=== PATIENT | female | born 1995 | race Caucasian/White ===

== ENCOUNTER 2017-01-18 16:06 | Emergency (ER) | payer BC, OTHER ==
[~2017-01-18] VITALS: Ht 170.2 cm; Wt 55.2 kg
[~2017-01-18 16:06] MED LIST: AMPH30CA3 PO; AMPH5CAP PO; LEVO1IUD PV
[2017-01-18 16:08] VITALS: BP 131/92; TEMP 37; Ht 170.2 cm; Wt 55.2 kg
[2017-01-18] MEDS ORDERED: TRAZ50TA35 PO (16:28)
[2017-01-18] MEDS ORDERED: SERT50TA PO (16:28)
--- NOTE | 2017-01-18 16:39 | DIAGNOSTIC IMAGING REPORT ---
RIGHT FOOT 3 VIEWS CLINICAL HISTORY: Right foot pain. FINDINGS: 3 views of the right foot are compared to study dated 07/27/2015. The skeletal structures are well mineralized. No fracture is seen. The joint spaces of the foot are well-maintained. Mild spurring is noted along the medial tarsal bones. The overlying soft tissues are within normal limits. IMPRESSION: No acute bony abnormality is seen in the right foot. Electronically signed by: Clifton Laura M.D. 01/18/2017 4:37 PM Dictated Date/Time: 01/18/2017 4:36 PM
[2017-01-18 17:02] VITALS: PULSE 95; O2SAT 96
--- NOTE | 2017-01-18 17:46 | EMERGENCY ROOM VISIT NOTE ---
History First contact with patient: 16:13 Chief Complaint: FOOT PAIN Stated Complaint: RIGHT FOOT PAIN History of Present Illness The patient is a 21 year old female who presents to the Emergency Room with complaints of persistent right lateral foot pain. The patient reports that she injured her foot on Monday doing cross fit training. The patient has been using crutches to avoid limping, but still has notable discomfort, rated a 6 out of 10. She denies any pain extending into the ankle or leg. Denies paresthesias or numbness of the right foot or toes. She denies any prior history of right foot injuries. Review of Systems 10 system review was performed and was negative except for pertinent positives and negatives as indicated in history of present illness Past Medical/Surgical History Medical Problems: (1) Acute pancreatitis (2) ADHD (attention deficit hyperactivity disorder) (3) Anxiety (4) Brain bleed (5) ICH (intracerebral hemorrhage) (6) Pancreatitis (7) Ulcerative colitis Surgical Problems: (1) History of cholecystectomy (2) History of colonoscopy (3) History of wisdom tooth extraction Family History Cancer Diabetes mellitus Heart disease Hypertension Social History Smoking Status: Never Smoker Alcohol Use: none Drug Use: none Marital Status: single Housing Status: lives with roommate Occupation Status: [employer] student Current/Historical Medications Scheduled Amphetamine-Dextroamphetamine 30MG (Adderall Xr 30MG), 30 MG PO DAILY Amphetamine-Dextroamphetamine 5MG (Adderall Xr 5MG), 5 MG PO DAILY Levonorgestrel (Iud) (Juliana), 1 EA PV UD Sertraline (Zoloft), 50 MG PO DAILY Trazodone Hcl (Trazodone), 25 MG PO DAILY Allergies Coded Allergies: Sulfa Antibiotics (Verified Allergy, Intermediate, HIVES, 01/18/17) Cephalexin (Verified Allergy, Unknown, UNKNOWN, 01/18/17) Moxifloxacin (Unverified Allergy, Unknown, advere reaction, 01/18/17) Penicillins (Verified Allergy, Unknown, HIVES, 01/18/17) Morphine (Verified Adverse Reaction, Intermediate, INCREASED PAIN, 01/18/17 ) Physical Exam Vital Signs Date Time Temp Pulse Resp B/P Pulse Ox O2 Delivery O2 Flow Rate FiO2 01/18/17 17:02 95 16 96 01/18/17 16:08 37.0 95 18 131/92 94 Room Air Pain Rating (0-10): 2.0 Physical Exam CONSTITUTIONAL: Healthy and well nourished. Alert and oriented X 3 with positive affect. Patient does not appear in any acute distress. HEENT: Normocephalic, atraumatic. Pupils equal, round and reactive. NECK: Full active range of motion without discomfort. MUSCULOSKELETAL: Examination of the right foot shows minimal edema over the distal fifth and fourth metatarsal region. There is a mild area of ecchymosis over the same dorsal region. No discomfort with subtalar motion. No tenderness to palpation through the calcaneus or plantar fashion. No tenderness to palpation about the ankle. Pedal pulses are intact. INTEGUMENTARY: No rash or other significant dermatologic conditions noted. NEUROLOGIC: Right foot and toes are sensory intact. Medical Decision & Procedures ER Provider Diagnostic Interpretation: My interpretation of right foot x-rays does not show any acute fractures or dislocations. Radiologist report is as follows: RIGHT FOOT 3 VIEWS CLINICAL HISTORY: Right foot pain. FINDINGS: 3 views of the right foot are compared to study dated 07/27/2015. The skeletal structures are well mineralized. No fracture is seen. The joint spaces of the foot are well-maintained. Mild spurring is noted along the medial tarsal bones. The overlying soft tissues are within normal limits. IMPRESSION: No acute bony abnormality is seen in the right foot. ED Course Patient history and physical exam were performed. Nurse's notes were reviewed. The patient refused any analgesics while in the emergency department. X-rays of the right foot were normal. The patient was encouraged to continue using crutches, limited weightbearing to avoid limping. Ice and elevation for swelling. Tylenol as needed for additional pain relief. She was instructed to follow-up with orthopedics if symptoms are not improving within the next week. The patient was happy with plan of care, voiced understanding of all discharge instructions, and rated her pain a 2 out of 10 at the time of discharge. Impression Primary Impression: Right foot strain Departure Information Dispostion Home / Self-Care Condition FAIR Referrals Keven Dudley D.O. Forms HOME CARE DOCUMENTATION FORM, IMPORTANT VISIT INFORMATION Patient Instructions My [facility] [employer] Additional Instructions Suggest no workouts for the next 7 days. Intermittently apply ice to the foot. Minimal weight on foot, continuing to use crutches over the next 3-5 days. Ibuprofen or Tylenol as needed for pain. Follow-up with orthopedics (Dr. Dudley) if symptoms are not improving within the next week. Problem Qualifiers Primary Impression: Right foot strain Encounter type: initial encounter Qualified Codes: S96.911A - Strain of unspecified muscle and tendon at ankle and foot level, right foot, initial encounter
[2017-02-18] MEDS ORDERED: AMPH5CAP PO (09:51)
[2017-02-18] MEDS ORDERED: [UNRECOGNIZED DRUG - CODE] PO (09:51)
[2017-02-18] MEDS ORDERED: AMPH30CA3 PO (09:51)
== END 2017-01-18 17:03 | disposition home or self-care (01) ==
LOC: C.EDB 16:09 → C.EDD 17:03
DX: S96.911A Strain of unspecified muscle and tendon at ankle and foot level, right foot, initial encounter (principal); X58.XXXA Exposure to other specified factors, initial encounter; F90.9 Attention-deficit hyperactivity disorder, unspecified type; F41.9 Anxiety disorder, unspecified; K86.1 Other chronic pancreatitis; Z86.73 Personal history of transient ischemic attack (TIA), and cerebral infarction without residual deficits; Z87.19 Personal history of other diseases of the digestive system; Z90.49 Acquired absence of other specified parts of digestive tract; Z79.899 Other long term (current) drug therapy; Z88.0 Allergy status to penicillin; Z88.2 Allergy status to sulfonamides; Z88.8 Allergy status to other drugs, medicaments and biological substances; Z80.9 Family history of malignant neoplasm, unspecified; Z83.3 Family history of diabetes mellitus; Z82.49 Family history of ischemic heart disease and other diseases of the circulatory system

== ENCOUNTER 2017-02-13 22:49 | Inpatient (IN) | payer BC, OTHER ==
[~2017-02-13] VITALS: Ht 170.2 cm; Wt 55.7 kg
[~2017-02-13 22:49] MED LIST changes: +SERT50TA PO; +TRAZ50TA35 PO
[2017-02-13] MEDS ORDERED: HYDROmorphone INJ 0.5 MG/0.5 ML SYR IV STA (23:01)
[2017-02-13] MEDS ORDERED: ONDANSETRON INJ 2 MG/ML 2 ML VIAL IV STA (23:01)
[2017-02-13] MEDS ORDERED: SODIUM CHLORIDE 0.9% 1000ML 1,000 ML IV STA ×2 (23:01)
[2017-02-13 23:15] LABS: BASO % 0.4 %; BASO ABS # 0.03 K/uL (0-0.2); COMPLETE YES; EOS % 0.9 %; HEMATOCRIT 39.5 % (37-47); IG% 0.1 %; LYMPH % 24.7 %; LYMPH ABS # 1.73 K/uL (1.2-3.4); MEAN CORPUSCULAR HEMOGLOBIN 31.1 pg (25-34); MEAN CORPUSCULAR HGB CONC 34.9 g/dl (32-36); MEAN PLATELET VOLUME 9.3 fL (7.4-10.4); MONO % 9.4 %; NEUT % 64.5 %; PLATELET COUNT 252 K/uL (130-400); RED BLOOD COUNT 4.44 M/uL (4.2-5.4); WHITE BLOOD COUNT 6.99 K/uL (4.8-10.8)
[2017-02-13 23:50] LABS: BUN/CREATININE RATIO 21.5 (10-20); POTASSIUM 3.9 mmol/L (3.5-5.1)
[2017-02-13 23:51] LABS: PREG INTERNAL NEGATIVE QC NEG CLEAR BACKGROUND; PREG INTERNAL POSITIVE QC POS CONTROL LINE
[2017-02-14] MEDS ORDERED: HYDROmorphone INJ 0.5 MG/0.5 ML SYR IV STA ×2 (00:22→02:53)
[2017-02-14 01:51] LABS: URINE APPEARANCE CLEAR (CLEAR); URINE BILIRUBIN NEG (NEG); URINE COLOR YELLOW; URINE EPITHELIAL CELL AUTO >30 /lpf (0-5); URINE NITRITE NEG (NEG); URINE PH 6.5 (4.5-7.5); URINE SPECIFIC GRAVITY 1.025 (1.000-1.030); UROBILINOGEN NEG (NEG); ZZUR CULT IF INDIC CLEAN CATCH YES
[2017-02-14 01:54] LABS: MANUAL MICROSCOPIC REQUIRED? NO; REVIEW REQ? NO
--- NOTE | 2017-02-14 03:38 | EMERGENCY ROOM VISIT NOTE ---
History First contact with patient: 22:57 Chief Complaint: GI ASSESSMENT Stated Complaint: CHRONIC PANCREATITIS Nursing Triage Summary: c/p mid abdominal pain "feels like pancreatitis again" History of Present Illness The patient is a 21 year old female who presents to the Emergency Room with complaints of epigastric abdominal pain. The patient reports a significant past medical history of chronic pancreatitis. She reports that she's had a cholecystectomy as well as stents placed after ERCP last year. She has had waxing waning episodes of epigastric pain with elevation of her lipase levels. She reports that she has had epigastric pain throughout the day, but reports that her pain is worsened over the last half hour. She reports nausea. She reports that this is consistent with all prior episodes. She rates her current discomfort as a 6/10. Nothing makes it better or worse. The patient denies any headaches, dizziness, lightheadedness, chest pain, palpitations, short of breath, hematemesis, hematochezia, melena, hematuria, or dysuria. She reports that her last menstrual period was one month ago. She denies a vaginal discharge or drainage. She denies any chance for . Review of Systems See HPI for pertinent positives & negatives. A total of 10 systems reviewed and were otherwise negative. Past Medical/Surgical History Medical Problems: (1) Acute pancreatitis (2) ADHD (attention deficit hyperactivity disorder) (3) Anxiety (4) Brain bleed (5) ICH (intracerebral hemorrhage) (6) Pancreatitis (7) Ulcerative colitis Surgical Problems: (1) History of cholecystectomy (2) History of colonoscopy (3) History of wisdom tooth extraction Family History Cancer Diabetes mellitus Heart disease Hypertension Social History Smoking Status: Never Smoker Alcohol Use: none Drug Use: none Marital Status: single Housing Status: lives with roommate Occupation Status: [employer] student Current/Historical Medications Scheduled Amphetamine-Dextroamphetamine 30MG (Adderall Xr 30MG), 30 MG PO DAILY Amphetamine-Dextroamphetamine 5MG (Adderall Xr 5MG), 5 MG PO DAILY Levonorgestrel (Iud) (Juliana), 1 EA PV UD Sertraline (Zoloft), 25 MG PO DAILY Trazodone Hcl (Trazodone), 50 MG PO DAILY Allergies Coded Allergies: Sulfa Antibiotics (Verified Allergy, Intermediate, HIVES, 02/13/17) Cephalexin (Verified Allergy, Unknown, UNKNOWN, 02/13/17) Moxifloxacin (Unverified Allergy, Unknown, advere reaction, 02/13/17) Penicillins (Verified Allergy, Unknown, HIVES, 02/13/17) Morphine (Verified Adverse Reaction, Intermediate, INCREASED PAIN, 02/13/17 ) Physical Exam Vital Signs Date Time Temp Pulse Resp B/P Pulse Ox O2 Delivery O2 Flow Rate FiO2 02/14/17 03:05 66 16 131/78 98 Room Air 02/14/17 01:44 83 16 143/90 99 Room Air 02/14/17 00:21 68 16 132/80 99 Room Air 02/13/17 23:30 75 02/13/17 23:26 95 Room Air 02/13/17 22:53 36.7 81 20 132/88 98 Room Air Physical Exam VITALS: Vitals are noted on the nurse's note and reviewed by myself. Vital signs stable. GENERAL: Pleasant female in obvious pain, nondiaphoretic, well-developed well- nourished. SKIN: The skin was without rashes, erythema, edema, or bruising. There is no tenting of the skin. Capillary reflex less than 2 seconds. HEAD: Normocephalic atraumatic. EARS: External auditory canals clear, tympanic membranes pearly tyler without erythema or effusion bilaterally. EYES: Pupils equal round and reactive to light and accommodation. Conjunctivae without injection, sclerae without icterus. Extraocular movements intact. NOSE: Patent, turbinates without inflammation or discharge. MOUTH: Mucous membranes moist. Pharynx without erythema or exudate. Uvula midline. Airway patent. Tongue does not deviate. NECK: Supple without nuchal rigidity. No lymphadenopathy. No thyromegaly. Cervical spine is nontender. No JVD. HEART: Regular rate and rhythm without murmurs gallops or rubs. LUNGS: Clear to auscultation bilaterally without wheezes, rales or rhonchi. No dullness to percussion. No retractions or accessory muscle use. ABDOMEN: Positive bowel sounds x 4. Normal tympanic percussion. Soft, tender to palpation epigastric region, no CVA tenderness, without masses or organomegaly. [place] sign negative. No guarding or rebound tenderness. MUSCULOSKELETAL: No muscle atrophy, erythema, or edema noted. NEURO: Patient was alert and oriented to person place and time. Normal sensation to light and sharp touch. No focal neurological deficits. Medical Decision & Procedures Laboratory Results 02/13/17 23:02 Red Blood Count 4.44, Mean Corpuscular Volume 89.0, Mean Corpuscular Hemoglobin 31.1, Mean Corpuscular Hemoglobin Concent 34.9, Mean Platelet Volume 9.3, Neutrophils (%) (Auto) 64.5, Lymphocytes (%) (Auto) 24.7, Monocytes (%) (Auto) 9.4, Eosinophils (%) (Auto) 0.9, Basophils (%) (Auto) 0.4, Neutrophils # (Auto) 4.50, Lymphocytes # (Auto) 1.73, Monocytes # (Auto) 0.66, Eosinophils # (Auto) 0.06, Basophils # (Auto) 0.03 02/13/17 23:02 Test 02/13/17 23:02 02/14/17 01:35 White Blood Count 6.99 K/uL (4.8-10.8) Red Blood Count 4.44 M/uL (4.2-5.4) Hemoglobin 13.8 g/dL (12.0-16.0) Hematocrit 39.5 % (37-47) Mean Corpuscular Volume 89.0 fL (80-100) Mean Corpuscular Hemoglobin 31.1 pg (25-34) Mean Corpuscular Hemoglobin Concent 34.9 g/dl (32-36) Platelet Count 252 K/uL (130-400) Mean Platelet Volume 9.3 fL (7.4-10.4) Neutrophils (%) (Auto) 64.5 % Lymphocytes (%) (Auto) 24.7 % Monocytes (%) (Auto) 9.4 % Eosinophils (%) (Auto) 0.9 % Basophils (%) (Auto) 0.4 % Neutrophils # (Auto) 4.50 K/uL (1.4-6.5) Lymphocytes # (Auto) 1.73 K/uL (1.2-3.4) Monocytes # (Auto) 0.66 K/uL (0.11-0.59) Eosinophils # (Auto) 0.06 K/uL (0-0.5) Basophils # (Auto) 0.03 K/uL (0-0.2) RDW Standard Deviation 45.0 fL (36.4-46.3) RDW Coefficient of Variation 13.6 % (11.5-14.5) Immature Granulocyte % (Auto) 0.1 % Immature Granulocyte # (Auto) 0.01 K/uL (0.00-0.02) Anion Gap 7.0 mmol/L (3-11) Est Creatinine Clear Calc Drug Dose 76.9 ml/min Estimated GFR () 92.0 Estimated GFR (Non- 79.4 BUN/Creatinine Ratio 21.5 (10-20) Calcium Level 9.0 mg/dl (8.5-10.1) Total Bilirubin 1.1 mg/dl (0.2-1) Direct Bilirubin 0.2 mg/dl (0-0.2) Aspartate Amino Transf (AST/SGOT) 17 U/L (15-37) Alanine Aminotransferase (ALT/SGPT) 24 U/L (12-78) Alkaline Phosphatase 110 U/L (45-117) Total Protein 7.4 gm/dl (6.4-8.2) Albumin 4.3 gm/dl (3.4-5.0) Lipase 177 U/L (73-393) Human Chorionic Gonadotropin, Qual NEG (NEG) Urine Color YELLOW Urine Appearance CLEAR (CLEAR) Urine pH 6.5 (4.5-7.5) Urine Specific [place] 1.025 (1.000-1.030) Urine Protein NEG (NEG) Urine Glucose (UA) NEG (NEG) Urine Ketones NEG (NEG) Urine Occult Blood 1+ (NEG) Urine Nitrite NEG (NEG) Urine Bilirubin NEG (NEG) Urine Urobilinogen NEG (NEG) Urine Leukocyte Esterase NEG (NEG) Urine WBC (Auto) 1-5 /hpf (0-5) Urine RBC (Auto) 0-4 /hpf (0-4) Urine Hyaline Casts (Auto) 1-5 /lpf (0-5) Urine Epithelial Cells (Auto) >30 /lpf (0-5) Urine Bacteria (Auto) 1+ (NEG) Medications Administered Medications (Trade) Dose Ordered Sig/Ethan Route Start Time Stop Time Status Last Admin Dose Admin Hydromorphone HCl (Dilaudid Inj) 0.5 mg NOW STAT IV 02/13/17 23:01 02/13/17 23:04 DC 02/13/17 23:20 0.5 MG Ondansetron HCl 4 mg 4 mg NOW STAT IV 02/13/17 23:01 02/13/17 23:04 DC 02/13/17 23:20 4 MG Sodium Chloride 1,000 ml @ 999 mls/hr Q1H1M STAT IV 02/13/17 23:01 02/14/17 00:01 DC 02/13/17 23:19 999 MLS/HR Sodium Chloride (Nss 1000ml) 1,000 ml @ 125 mls/hr Q8H STAT IV 02/13/17 23:01 02/14/17 07:00 02/14/17 00:36 125 MLS/HR Hydromorphone HCl (Dilaudid Inj) 0.5 mg NOW STAT IV 02/14/17 00:22 02/14/17 00:23 DC 02/14/17 00:36 0.5 MG Hydromorphone HCl (Dilaudid Inj) 0.5 mg NOW STAT IV 02/14/17 02:53 02/14/17 02:54 DC 02/14/17 03:04 0.5 MG ED Course Prior records/ancillary studies reviewed. Triage Nursing notes reviewed. Additional history obtained from family. The patient's history was concerning for abdominal pain. Differential diagnosis: Etiologies such as appendicitis, diverticulitis, PUD, biliary pathology, UTI, pancreatitis, obstruction, mesenteric ischemia, aortic pathology, infections, inflammatory bowel disease, renal colic, as well as others were entertained. Physical examination findings: As above. ER treatment provided: IV fluids, Dilaudid, Zofran On reassessment the patient felt better. Diagnostics interpreted by me: The labs revealed no worrisome leukocytosis or electrolyte abnormality Imaging studies: Ultrasound was reviewed from stat radiology Consultation: A consultation was placed with the hospitalist, Dr. Bianchi. The case was discussed and diagnostics were reviewed. The patient was evaluated in the ER for further treatment. Exam and history seem consistent with chronic pancreatitis. Patient was still in severe amount of pain. She received multiple pain medications. She will be evaluated by medicine for possible admission. She had normal lipase. No acute findings on ultrasound. She has a history of chronic pancreatitis and symptoms are similar. By the evaluation outlined above emergent etiologies such as appendicitis, diverticulitis, PUD, biliary pathology, UTI, obstruction, mesenteric ischemia, aortic pathology, infections, inflammatory bowel disease, renal colic, as well as others were deemed relatively unlikely. The pt informed about the findings as listed above. All questions were answered and pleased with the treatment. case reviewed with my Attending. Medical Decision As above Impression Primary Impression: Chronic pancreatitis Departure Information Dispostion Being Evaluated By Hospitalist Condition FAIR Referrals MARIANNE HOFFMANN M.D. (PCP) Patient Instructions My [facility] Problem Qualifiers Primary Impression: Chronic pancreatitis Pancreatitis type: unspecified pancreatitis type Qualified Codes: K86.1 - Other chronic pancreatitis
[2017-02-14] MEDS ORDERED: ALUMINUM/MAGNESIUM/SIMETH (MAALOX MAX) 30 ML UDC PO PRN (03:45)
[2017-02-14] MEDS ORDERED: ACETAMINOPHEN 325 MG TAB PO PRN (03:45)
[2017-02-14] MEDS ORDERED: POLYETHYLENE (MIRALAX) 17 GM PACK PO PRN (04:00)
[2017-02-14 04:30] VITALS: BP 131/87; PULSE 65; TEMP 36.6; Ht 170.2 cm; Wt 55.7 kg
[2017-02-14] MEDS: ONDANSETRON INJ 2 MG/ML 2 ML VIAL IV PRN ×4 (04:50→18:53)
--- NOTE | 2017-02-14 05:10 | History and Physical ---
History & Physical Date & Time of Service: Feb 14, 2017 at 05:02 Chief Complaint: Chronic Pancreatitis, Intractable Abdominal Pain Primary Care Physician: Chelo Catherine M.D. History of Present Illness Source: patient 21-year-old female with past medical history of chronic pancreatitis status post cholecystectomy, stenting after ERCP presented to the ER with abdominal pain which started this morning. She complained of mid abdominal pain radiating to the back , about 6 on 10, associated with nausea. She denies any episodes of vomiting but has had diarrhea almost every day for about a month. Denies any fevers or chills or any recent viral illnesses. She follows with specialist at [facility] and has not had acute attacks since last summer. She was tested extensively for any structural changes, cystic fibrosis etc. She had earlier used Creon but had stopped it as it caused constipation. She tries to eat a low-fat diet. She has no history of diabetes. Denies any alcohol intake, smoking, illicit drugs. Denies any dysuria, hematuria, urinary frequency, BRBPR, melena. Past Medical/Surgical History Medical Problems: (1) Acute pancreatitis Status: Resolved (2) ADHD (attention deficit hyperactivity disorder) Status: Chronic (3) Anxiety Status: Chronic (4) Brain bleed Status: Chronic (5) ICH (intracerebral hemorrhage) Status: Resolved (6) Pancreatitis Status: Chronic (7) Ulcerative colitis Status: Chronic Surgical Problems: (1) History of cholecystectomy Status: Resolved (2) History of colonoscopy Status: Resolved (3) History of wisdom tooth extraction Status: Resolved Family History Cancer Diabetes mellitus Heart disease Hypertension Social History Smoking Status: Never Smoker Drug Use: none Marital Status: single Occupational Status: [employer] student Immunizations History of Influenza Vaccine: No History of Tetanus Vaccine?: Unknown History of Pneumococcal: No History of Hepatitis B Vaccine: Unknown Allergies Coded Allergies: Sulfa Antibiotics (Verified Allergy, Intermediate, HIVES, 02/13/17) Cephalexin (Verified Allergy, Unknown, UNKNOWN, 02/13/17) Moxifloxacin (Unverified Allergy, Unknown, advere reaction, 02/13/17) Penicillins (Verified Allergy, Unknown, HIVES, 02/13/17) Morphine (Verified Adverse Reaction, Intermediate, INCREASED PAIN, 02/13/17 ) Home Medications Scheduled Amphetamine-Dextroamphetamine 30MG (Adderall Xr 30MG), 30 MG PO DAILY Amphetamine-Dextroamphetamine 5MG (Adderall Xr 5MG), 5 MG PO DAILY Levonorgestrel (Iud) (Juliana), 1 EA PV UD Sertraline (Zoloft), 25 MG PO DAILY Trazodone Hcl (Trazodone), 50 MG PO DAILY Review of Systems Constitutional: No chills, No fever Eyes: No worsening of vision ENT: No hearing loss Respiratory: No cough, No sputum Cardiovascular: No chest pain Abdomen: + diarrhea, + nausea, + pain Musculoskeletal: No joint pain Genitourinary - Female: No dysuria, No urinary frequency, No urinary urgency Neurologic: No memory loss Psychiatric: No depression symptoms Endocrine: No fatigue Hematologic / Lymphatic: No abnormal bleeding/bruising Integumentary: No rash Physical Exam Vital Signs Date Time Temp Pulse Resp B/P Pulse Ox O2 Delivery O2 Flow Rate FiO2 02/14/17 04:16 77 16 116/55 96 Room Air 02/14/17 03:05 66 16 131/78 98 Room Air 02/14/17 01:44 83 16 143/90 99 Room Air 02/14/17 00:21 68 16 132/80 99 Room Air 02/13/17 23:30 75 02/13/17 23:26 95 Room Air 02/13/17 22:53 36.7 81 20 132/88 98 Room Air General Appearance: WD/WN, no apparent distress Head: normocephalic Eyes: normal inspection ENT: normal ENT inspection, hearing grossly normal Neck: supple Respiratory/Chest: chest non-tender, lungs clear, normal breath sounds, no respiratory distress, no accessory muscle use Cardiovascular: regular rate, rhythm, no edema Abdomen/GI: normal bowel sounds, non tender, soft Extremities/Musculoskelatal: no pedal edema Neurologic/Psych: alert, normal mood/affect, oriented x 3 Skin: normal color Diagnostics Laboratory Results Results Past 24 Hours Test 02/13/17 23:02 02/14/17 01:35 02/14/17 04:48 Range/Units White Blood Count 6.99 4.8-10.8 K/uL Red Blood Count 4.44 4.2-5.4 M/uL Hemoglobin 13.8 12.0-16.0 g/dL Hematocrit 39.5 37-47 % Mean Corpuscular Volume 89.0 80-100 fL Mean Corpuscular Hemoglobin 31.1 25-34 pg Mean Corpuscular Hemoglobin Concent 34.9 32-36 g/dl Platelet Count 252 130-400 K/uL Mean Platelet Volume 9.3 7.4-10.4 fL Neutrophils (%) (Auto) 64.5 % Lymphocytes (%) (Auto) 24.7 % Monocytes (%) (Auto) 9.4 % Eosinophils (%) (Auto) 0.9 % Basophils (%) (Auto) 0.4 % Neutrophils # (Auto) 4.50 1.4-6.5 K/uL Lymphocytes # (Auto) 1.73 1.2-3.4 K/uL Monocytes # (Auto) 0.66 0.11-0.59 K/uL Eosinophils # (Auto) 0.06 0-0.5 K/uL Basophils # (Auto) 0.03 0-0.2 K/uL RDW Standard Deviation 45.0 36.4-46.3 fL RDW Coefficient of Variation 13.6 11.5-14.5 % Immature Granulocyte % (Auto) 0.1 % Immature Granulocyte # (Auto) 0.01 0.00-0.02 K/uL Sodium Level 141 136-145 mmol/L Potassium Level 3.9 3.5-5.1 mmol/L Chloride Level 106 98-107 mmol/L Carbon Dioxide Level 28 21-32 mmol/L Anion Gap 7.0 3-11 mmol/L Blood Urea Nitrogen 22 7-18 mg/dl Creatinine 1.00 0.60-1.20 mg/dl Est Creatinine Clear Calc Drug Dose 76.9 ml/min Estimated GFR () 92.0 Estimated GFR (Non- 79.4 BUN/Creatinine Ratio 21.5 10-20 Random Glucose 128 70-99 mg/dl Calcium Level 9.0 8.5-10.1 mg/dl Total Bilirubin 1.1 0.2-1 mg/dl Direct Bilirubin 0.2 0-0.2 mg/dl Aspartate Amino Transf (AST/SGOT) 17 15-37 U/L Alanine Aminotransferase (ALT/SGPT) 24 12-78 U/L Alkaline Phosphatase 110 45-117 U/L Total Protein 7.4 6.4-8.2 gm/dl Albumin 4.3 3.4-5.0 gm/dl Lipase 177 73-393 U/L Human Chorionic Gonadotropin, Qual NEG NEG Urine Color YELLOW Urine Appearance CLEAR CLEAR Urine pH 6.5 4.5-7.5 Urine Specific [place] 1.025 1.000-1.030 Urine Protein NEG NEG Urine Glucose (UA) NEG NEG Urine Ketones NEG NEG Urine Occult Blood 1+ NEG Urine Nitrite NEG NEG Urine Bilirubin NEG NEG Urine Urobilinogen NEG NEG Urine Leukocyte Esterase NEG NEG Urine WBC (Auto) 1-5 0-5 /hpf Urine RBC (Auto) 0-4 0-4 /hpf Urine Hyaline Casts (Auto) 1-5 0-5 /lpf Urine Epithelial Cells (Auto) >30 0-5 /lpf Urine Bacteria (Auto) 1+ NEG Microbiology Results 02/14/17 Urine Culture, Received Pending Impression Assessment and Plan 21-year-old female with past medical history of chronic pancreatitis here with epigastric pain that started this morning. She follows with GI in [facility]. Chronic pancreatitis: Lipase on presentation 177 - Abdominal ultrasound done - Monitor lipase levels - Continue IV fluids - Pain control with Dilaudid 0.5 mg IV every 3 hours as needed - GI consult - Bowel rest Chronic diarrhea: - Likely secondary to chronic pancreatitis Pancreatic exocrine insufficiency - Patient had stopped using Creon/pancrease supplement as it had caused constipation - We will restart Creon in low doses - Check vitamin D levels - Check B12 levels which could be affected by malabsorption - Nutrition consult Pancreatic endocrine insufficiency : Random blood sugar today was 128 Check hemoglobin A1c Full code DVT prophylaxis: SCDs Disposition: Admitted to Med/Surg Level of Care Med/Surg Resuscitation Status FULL RESUSCITATION VTE Prophylaxis VTE Risk Assessment Done? Y/N: Yes Risk Level: Moderate Given or contraindicated: SCD's Resident Tracking Resident Involvement: Resident Care Provided Care Provided: Adult Hospital Medicine Assessment and Plan Attending Addendum: I have physically seen and examined this patient, have directed their medical care, have supervised the medical residents activities, and agree with the H&P as noted above, with the following changes: NONE
[2017-02-14] MEDS: HYDROmorphone INJ 0.5 MG/0.5 ML SYR IV PRN ×6 (05:37→22:08)
--- NOTE | 2017-02-14 07:07 | DIAGNOSTIC IMAGING REPORT ---
ULTRASOUND RIGHT UPPER QUADRANT ABDOMEN CLINICAL HISTORY: Epigastric abdominal pain. COMPARISON STUDY: Abdominal ultrasound dated 09/05/2016. TECHNIQUE: Real-time, grayscale, and color flow sonography of the right upper quadrant of the abdomen was performed. Images are reviewed in the transverse and longitudinal planes. FINDINGS: Liver: The liver is normal in size and echotexture. There is no intrahepatic biliary ductal dilatation. The main portal vein is patent. Gallbladder: The gallbladder is surgically absent. The common bile duct measures up to 0.5 cm in diameter. Pancreas: Visualized portions of the pancreatic head and body are normal in appearance. Splenic vein is patent. Right kidney: Survey images of the right kidney demonstrate normal size and echotexture. There is no hydronephrosis. Ascites: None. IMPRESSION: No acute sonographic abnormality is identified in the right upper quadrant noting status post cholecystectomy. Electronically signed by: Clifton Laura M.D. 02/14/2017 7:04 AM Dictated Date/Time: 02/14/2017 7:04 AM
[2017-02-14] MEDS: NSS + 20MEQ KCL 1000ML 1,000 ML IV SCH ×2 (07:08→15:01)
[2017-02-14 07:38] VITALS: BP 108/69; PULSE 54; TEMP 36.5; O2SAT 98
[2017-02-14 07:56] LABS: ESTIMATED AVERAGE GLUCOSE 103 mg/dl; HA1C FLAG Normal (Normal)
[2017-02-14] MEDS: PANCREAZE (LIPASE 4,200U) CAP PO SCH ×3 (08:00→21:00)
[2017-02-14] MEDS ORDERED: TRAZODONE HCL 50 MG TAB PO SCH (09:00)
[2017-02-14] MEDS ORDERED: SERTRALINE HCL 50 MG TAB PO SCH (09:00)
[2017-02-14] MEDS: AMPHETAMINE-DEXTROAMPHETAMINE 30 MG CAP PO SCH ×2 (09:30→12:06)
[2017-02-14] MEDS: ADDERALL 30 MG SCH (09:30)
--- NOTE | 2017-02-14 15:10 | Progress Note ---
Progress Note Date of Service Feb 14, 2017. (Agnieszka Astorga, PAShirazC) Progress Note Patient seen and examined. Minimal improvement in pain. Moderate improvement in nausea. TTP in epigastric region Acute on chronic pancreatitis -Change IV fluids to LR at 150 cc/hr -Increase Creon to 1 tab 3 TID -Await GI Recs DVT prophylaxis -Teds, SCDs CODE STATUS -LEVEL I FULL CODE (Agnieszka Astorga, AGUILA) Attending Attestation: Pt seen/examined, chart reviewed, care plan d/w NEGRO Astorga. I agree w/ the tafoya components of her documentation. Pt with ongoing nausea and epigastric "burning pain." Extensive w/u for her recurrent/chronic pancreatitis by [facility] w/o specific etiology. s/p stenting of pancreatic duct and sphincterotomy (by her account) in the last 1-2 years. Denies etoh. Unsure about her lipids. VSS no fever gen - NAD skin - pallor heart - RRR lungs - CTA b/l abd - minimal distension, BS+, tender epigastric area, no HSM A/P: 1. chronic pancreatitis 2. steatorrhea by history vs infectious diarrhea 3. agree with creon once eating again 4. agree with c. diff toxin as ordered by GI 5. agree with triglyceride check in AM 6. copious LR fluids Deonna JENKINS MD (Chi Jenkins MD)
[2017-02-14 15:30] VITALS: BP 128/85; PULSE 66; TEMP 36.6; O2SAT 100
[2017-02-14] MEDS: LACTATED RINGER'S 1000ML 1,000 ML IV SCH ×2 (17:30→20:42)
--- NOTE | 2017-02-14 18:20 | Gastroenterology Progress Note ---
Progress Note Date of Service: Feb 14, 2017 Subjective Pt evaluation today including: conversation w/ patient, physical exam, chart review (no notes in [place] EMR, Gi consult DR Andrew 2014 inpt for pancreatitis. ), lab review, review of studies, review of inpatient medication list Medications Current Inpatient Medications Medications (Trade) Dose Ordered Sig/Ethan Route Start Time Stop Time Status Last Admin Dose Admin Acetaminophen (Tylenol Tab) 650 mg Q4H PRN PO 02/14/17 03:45 03/16/17 03:44 Al Hydrox/Mg Hydrox/Simethicone (Maalox Max Susp) 15 ml Q4H PRN PO 02/14/17 03:45 03/16/17 03:44 Polyethylene (Miralax Powder Packet) 17 gm DAILY PRN PO 02/14/17 04:00 03/16/17 03:59 Ondansetron HCl (Zofran Inj) 4 mg Q6H PRN IV 02/14/17 03:45 03/16/17 03:44 02/14/17 15:27 4 MG Hydromorphone HCl (Dilaudid Inj) 0.5 mg Q3H PRN IV 02/14/17 05:00 02/28/17 04:59 02/14/17 15:28 0.5 MG Miscellaneous Information (Order Awaiting Action) 1 ea QS N/A 02/14/17 08:00 03/16/17 07:59 Non-Formulary Medication (Patient'S Own Controlled Med) 1 ea DAILY N/A 02/14/17 09:30 02/28/17 09:29 Sertraline HCl (Zoloft Tab) 25 mg HS PO 02/14/17 21:00 03/16/17 08:59 Trazodone HCl (Desyrel Tab) 50 mg HS PO 02/14/17 21:00 03/16/17 08:59 Amylase/Lipase/ Protease 1 cap 1 cap TID PO 02/14/17 21:00 03/16/17 20:59 Lactated Ringer's (Lr 1000ml) 1,000 ml @ 150 mls/hr Q6H40M IV 02/14/17 15:15 03/16/17 15:14 02/14/17 17:30 150 MLS/HR Objective Vital Signs Date Time Temp Pulse Resp B/P Pulse Ox O2 Delivery O2 Flow Rate FiO2 02/14/17 15:30 36.6 66 18 128/85 100 Room Air 02/14/17 07:38 36.5 54 16 108/69 98 Room Air 02/14/17 07:30 Room Air 02/14/17 04:30 Room Air 02/14/17 04:30 36.6 65 18 131/87 Room Air 02/14/17 04:16 77 16 116/55 96 Room Air 02/14/17 03:05 66 16 131/78 98 Room Air 02/14/17 01:44 83 16 143/90 99 Room Air 02/14/17 00:21 68 16 132/80 99 Room Air 02/13/17 23:30 75 02/13/17 23:26 95 Room Air 02/13/17 22:53 36.7 81 20 132/88 98 Room Air Laboratory Results Last 24 Hours Test 02/13/17 23:02 02/14/17 01:35 02/14/17 06:09 White Blood Count 6.99 K/uL Red Blood Count 4.44 M/uL Hemoglobin 13.8 g/dL Hematocrit 39.5 % Mean Corpuscular Volume 89.0 fL Mean Corpuscular Hemoglobin 31.1 pg Mean Corpuscular Hemoglobin Concent 34.9 g/dl Platelet Count 252 K/uL Mean Platelet Volume 9.3 fL Neutrophils (%) (Auto) 64.5 % Lymphocytes (%) (Auto) 24.7 % Monocytes (%) (Auto) 9.4 % Eosinophils (%) (Auto) 0.9 % Basophils (%) (Auto) 0.4 % Neutrophils # (Auto) 4.50 K/uL Lymphocytes # (Auto) 1.73 K/uL Monocytes # (Auto) 0.66 K/uL Eosinophils # (Auto) 0.06 K/uL Basophils # (Auto) 0.03 K/uL RDW Standard Deviation 45.0 fL RDW Coefficient of Variation 13.6 % Immature Granulocyte % (Auto) 0.1 % Immature Granulocyte # (Auto) 0.01 K/uL Sodium Level 141 mmol/L Potassium Level 3.9 mmol/L Chloride Level 106 mmol/L Carbon Dioxide Level 28 mmol/L Anion Gap 7.0 mmol/L Blood Urea Nitrogen 22 mg/dl Creatinine 1.00 mg/dl Est Creatinine Clear Calc Drug Dose 76.9 ml/min Estimated GFR () 92.0 Estimated GFR (Non- 79.4 BUN/Creatinine Ratio 21.5 Random Glucose 128 mg/dl Calcium Level 9.0 mg/dl Total Bilirubin 1.1 mg/dl Direct Bilirubin 0.2 mg/dl Aspartate Amino Transf (AST/SGOT) 17 U/L Alanine Aminotransferase (ALT/SGPT) 24 U/L Alkaline Phosphatase 110 U/L Total Protein 7.4 gm/dl Albumin 4.3 gm/dl Lipase 177 U/L 157 U/L Human Chorionic Gonadotropin, Qual NEG Urine Color YELLOW Urine Appearance CLEAR Urine pH 6.5 Urine Specific Clifford 1.025 Urine Protein NEG Urine Glucose (UA) NEG Urine Ketones NEG Urine Occult Blood 1+ Urine Nitrite NEG Urine Bilirubin NEG Urine Urobilinogen NEG Urine Leukocyte Esterase NEG Urine WBC (Auto) 1-5 /hpf Urine RBC (Auto) 0-4 /hpf Urine Hyaline Casts (Auto) 1-5 /lpf Urine Epithelial Cells (Auto) >30 /lpf Urine Bacteria (Auto) 1+ Estimated Average Glucose 103 mg/dl Hemoglobin A1c 5.2 % Assessment and Plan Gi consult dictated job: [id number] epigastric pain---could be pancreatitis despite negative u/s and lipase given how many acute attacks patient has had and feels like typical episode per patient. Pt only with 2 urine voids since admit so bolus with LR and then 300 ml /hour to make sure adequate hydration to avoid necrotizing pancreatiist. Goal is 1/2 ml/kg/hour urine output. So ordered strict I /O also. Spoke with nurse about bolus and IV rate and strict I/O nausea and vomiting--likely related to process causing epi pain recurrent pancreattisi etiology unclear with ERCP with stents, s/p airam, testing for autoimmune and cystic fibrosis negative per patient. No ETOH per patient. She is not sure about triglyceride testing so will order that. Diarrhea--history of Cdiff so check stool for Cdiff, pancreas exocrine insufficiency in the differential also. Check CBC, CMP, lipase now and in am also.
[2017-02-14] MEDS ORDERED: LACTATED RINGER'S 1000ML 1,000 ML IV ONE (18:30)
[2017-02-14 18:35] LABS: BASO % 0.2 %; BASO ABS # 0.01 K/uL (0-0.2); HEMATOCRIT 36.4 % (37-47); LYMPH ABS # 1.64 K/uL (1.2-3.4); MEAN CORPUSCULAR HEMOGLOBIN 30.8 pg (25-34); MONO % 10.7 %; NEUT % 47.1 %; PLATELET COUNT 202 K/uL (130-400); RED BLOOD COUNT 4.09 M/uL (4.2-5.4)
[2017-02-14 18:46] LABS: COMPLETE YES; MEAN CORPUSCULAR HGB CONC 34.6 g/dl (32-36)
[2017-02-14 18:58] LABS: ALB/GLOB RATIO 1.3 (0.9-2); CREATININE 0.81 mg/dl (0.60-1.20); POTASSIUM 3.8 mmol/L (3.5-5.1)
[2017-02-14] MEDS ORDERED: NURSING VERBAL MED ORDER ONE (19:00)
[2017-02-14] MEDS ORDERED: ONDANSETRON INJ 2 MG/ML 2 ML VIAL IV ONE (19:45)
[2017-02-14] MEDS: TRAZODONE HCL 50 MG TAB PO SCH (21:00)
[2017-02-14] MEDS: SERTRALINE HCL 50 MG TAB PO SCH (22:06)
--- NOTE | 2017-02-14 22:20 | GASTROINTESTINAL CONSULTATION ---
DATE OF CONSULTATION: 02/14/2017 REASON FOR CONSULTATION: Chronic pancreatitis. CHIEF COMPLAINT: The patient has abdominal pain. HISTORY OF PRESENT ILLNESS: The patient states if this is pancreatitis, this time this is her 10th episode of pancreatitis. She has had extensive workup, sounds like at [facility]. She states she has had ERCP with stenting. She has had gallbladder removed. She has had testing for cystic fibrosis, testing for autoimmune pancreatitis. She is not a drinker of alcohol. She states that she is not aware whether she has been tested for high triglycerides or not. She states she had the ERCP with stenting about the summer of 2015 and this is the longest she has gone before having any problems, but she comes in now with about 5-6/10 epigastric pain, change in her bowels too with diarrhea over the last month. She does have a history of C. diff colitis per her report. No dysphagia. No significant change in her weight. No fever. Does have associated nausea and vomiting. No GERD. No liver problems. The patient apparently intermittently was given some p.o. liquids and had some worsening of her discomfort after that, about 6/10 at the current time. She states she has urinated twice since admission. PAST MEDICAL HISTORY: ALLERGIES: SULFA, PENICILLIN, MORPHINE, MOXIFLOXACIN. MEDICATIONS ON ADMISSION: Adderall, Skylo, Zoloft, trazodone. PROBLEMS AND SURGERIES: Status post cholecystectomy. She had intracranial bleed. She had C. diff colitis and apparently had some ulceration in the colon most secondary to that at one point. FAMILY HISTORY: Some type of cancer, diabetes. SOCIAL HISTORY: Ethanol negative. REVIEW OF SYSTEMS: Ten review of systems are reviewed and negative. PHYSICAL EXAMINATION: GENERAL: Female, appears her stated age, in no acute distress. VITAL SIGNS: Most recent vital signs in the chart, temp 36.6, pulse 66, respirations 18, BP 128/85, O2 saturation 100% on room air. EYES: Conjunctivae and lids normal. ENT: Oropharynx clear. NECK: Without obvious mass or thyroid enlargement. RESPIRATORY: Normal effort. Clear to auscultation. CARDIOVASCULAR: Regular rate and rhythm. EXTREMITIES: Without edema. ABDOMEN: Positive bowel sounds. Soft. Moderate subjective epigastric pain, but no guarding, no rebound. No obvious organomegaly or masses appreciated. RECTAL: Not done. LYMPH: No obvious neck or groin nodes. MUSCULOSKELETAL: Digits and nails normal. SKIN: Without obvious rash or induration. NEUROLOGIC: Cranial nerves intact. Sensation intact. PSYCHIATRIC: Recent and remote memory good. Insight and judgment good. DATA: CMP on admission, BUN 22, glucose 128, total bilirubin 1.1, lipase of 177 and repeat 157, she says it normally runs about 8-10. She states she has had EGDs and colonoscopy in the past which were unremarkable except for ulceration with C. diff at one point. Right upper quadrant ultrasound negative except status post cholecystectomy. IMPRESSION AND PLAN: 1. Epigastric pain. This could be pancreatitis despite a negative ultrasound and lipase given how many acute attacks the patient has had. She also thinks this is a typical episode from before. The patient only had 2 urine voids, there is no output recorded, so I am going to bolus her with a liter of LR and then 300 mL an hour to make sure she has adequate hydration to avoid necrotizing pancreatitis. The goal is 0.5 mL/hour or more urine output. I have ordered strict I and O. 2. Nausea and vomiting, likely related to the process causing epigastric pain. 3. Recurrent pancreatitis, etiology unclear, with workup including ERCP with stents, cholecystectomy, testing for autoimmune, cystic fibrosis. No ethanol per the patient. She is not sure about triglyceride testing so check lipid panel tomorrow. 4. Diarrhea, history of Clostridium difficile. Check stool for Clostridium difficile. Pancreas exocrine insufficiency in the differential also. MTDD
[2017-02-14 23:27] VITALS: BP 124/79; PULSE 67; TEMP 36.7; O2SAT 98
[2017-02-15] MEDS: LACTATED RINGER'S 1000ML 1,000 ML IV SCH ×5 (00:14→17:09)
[2017-02-15] MEDS: ONDANSETRON INJ 2 MG/ML 2 ML VIAL IV PRN (01:05)
[2017-02-15] MEDS: HYDROmorphone INJ 0.5 MG/0.5 ML SYR IV PRN ×7 (01:06→22:28)
[2017-02-15 07:00] VITALS: BP 107/67; PULSE 70; TEMP 36.6; O2SAT 98
[2017-02-15 07:14] LABS: BASO % 0.5 %; BASO ABS # 0.02 K/uL (0-0.2); COMPLETE YES; EOS % 2.7 %; HEMATOCRIT 36.7 % (37-47); LYMPH % 40.7 %; LYMPH ABS # 1.48 K/uL (1.2-3.4); MEAN CELL VOLUME 88.9 fL (80-100); MEAN CORPUSCULAR HEMOGLOBIN 30.5 pg (25-34); MEAN CORPUSCULAR HGB CONC 34.3 g/dl (32-36); MEAN PLATELET VOLUME 9.1 fL (7.4-10.4); MONO % 11.8 %; NEUT % 44.3 %; PLATELET COUNT 195 K/uL (130-400); RED BLOOD COUNT 4.13 M/uL (4.2-5.4); WHITE BLOOD COUNT 3.64 K/uL (4.8-10.8)
[2017-02-15 07:31] LABS: BUN/CREATININE RATIO 6.2 (10-20); CREATININE 0.83 mg/dl (0.60-1.20)
[2017-02-15 07:32] LABS: CALCIUM 8.5 mg/dl (8.5-10.1); MAGNESIUM 1.7 mg/dl (1.8-2.4); POTASSIUM 3.8 mmol/L (3.5-5.1)
[2017-02-15 07:35] LABS: ALB/GLOB RATIO 1.2 (0.9-2); CHOLESTEROL/HDL RATIO 2.8
--- NOTE | 2017-02-15 08:59 | Gastroenterology Progress Note ---
Progress Note Subjective Pt evaluation today including: conversation w/ patient, physical exam, chart review, lab review, review of studies, review of inpatient medication list CC f/u abdominal pain HPI Pt states her abd pain is better at 4/10. No stools. I/O for 12 hours as of 0800 recorded as 1300 in and 800 out but was on 300 ml an hour so should have been at leat 3600 in. Nurse for this shift was not given any report of malfunctioning IV and has no further information to resolve the discrepancy. Pt states urinating very frequently and large amounts. Review of Systems Respiratory: No shortness of breath Cardiac: No chest pain Medications Current Inpatient Medications Medications (Trade) Dose Ordered Sig/Ethan Route Start Time Stop Time Status Last Admin Dose Admin Acetaminophen (Tylenol Tab) 650 mg Q4H PRN PO 02/14/17 03:45 03/16/17 03:44 Al Hydrox/Mg Hydrox/Simethicone (Maalox Max Susp) 15 ml Q4H PRN PO 02/14/17 03:45 03/16/17 03:44 Polyethylene (Miralax Powder Packet) 17 gm DAILY PRN PO 02/14/17 04:00 03/16/17 03:59 Ondansetron HCl (Zofran Inj) 4 mg Q6H PRN IV 02/14/17 03:45 03/16/17 03:44 02/15/17 01:05 4 MG Hydromorphone HCl (Dilaudid Inj) 0.5 mg Q3H PRN IV 02/14/17 05:00 02/28/17 04:59 02/15/17 07:57 0.5 MG Miscellaneous Information (Order Awaiting Action) 1 ea QS N/A 02/14/17 08:00 03/16/17 07:59 Non-Formulary Medication (Patient'S Own Controlled Med) 1 ea DAILY N/A 02/14/17 09:30 02/28/17 09:29 Sertraline HCl (Zoloft Tab) 25 mg HS PO 02/14/17 21:00 03/16/17 08:59 02/14/17 22:06 25 MG Trazodone HCl (Desyrel Tab) 50 mg HS PO 02/14/17 21:00 03/16/17 08:59 Amylase/Lipase/ Protease 1 cap 1 cap TID PO 02/14/17 21:00 03/16/17 20:59 Lactated Ringer's (Lr 1000ml) 1,000 ml @ 300 mls/hr Q3H20M IV 02/14/17 15:15 03/16/17 15:14 02/15/17 05:44 300 MLS/HR Objective Vital Signs Date Time Temp Pulse Resp B/P Pulse Ox O2 Delivery O2 Flow Rate FiO2 02/15/17 07:00 36.6 70 19 107/67 98 Room Air 02/15/17 00:15 Room Air 02/14/17 23:27 36.7 67 19 124/79 98 Room Air 02/14/17 15:30 36.6 66 18 128/85 100 Room Air 02/14/17 15:15 Room Air Physical Exam General Appearance: WD/WN, no apparent distress Respiratory/Chest: lungs clear, no respiratory distress Cardiovascular: regular rate, rhythm, no edema Abdomen: normal bowel sounds, soft, no organomegaly, + pertinent finding ( subjecitive epi pain, NO guarding nor rebound) Neurologic/Psych: normal mood/affect, oriented x 3 Skin: normal color Laboratory Results Last 24 Hours Test 02/14/17 18:27 02/15/17 06:50 White Blood Count 4.10 K/uL 3.64 K/uL Red Blood Count 4.09 M/uL 4.13 M/uL Hemoglobin 12.6 g/dL 12.6 g/dL Hematocrit 36.4 % 36.7 % Mean Corpuscular Volume 89.0 fL 88.9 fL Mean Corpuscular Hemoglobin 30.8 pg 30.5 pg Mean Corpuscular Hemoglobin Concent 34.6 g/dl 34.3 g/dl Platelet Count 202 K/uL 195 K/uL Mean Platelet Volume 9.0 fL 9.1 fL Neutrophils (%) (Auto) 47.1 % 44.3 % Lymphocytes (%) (Auto) 40.0 % 40.7 % Monocytes (%) (Auto) 10.7 % 11.8 % Eosinophils (%) (Auto) 2.0 % 2.7 % Basophils (%) (Auto) 0.2 % 0.5 % Neutrophils # (Auto) 1.93 K/uL 1.61 K/uL Lymphocytes # (Auto) 1.64 K/uL 1.48 K/uL Monocytes # (Auto) 0.44 K/uL 0.43 K/uL Eosinophils # (Auto) 0.08 K/uL 0.10 K/uL Basophils # (Auto) 0.01 K/uL 0.02 K/uL RDW Standard Deviation 44.2 fL 43.5 fL RDW Coefficient of Variation 13.4 % 13.3 % Immature Granulocyte % (Auto) 0.0 % 0.0 % Immature Granulocyte # (Auto) 0.00 K/uL 0.00 K/uL Sodium Level 141 mmol/L 142 mmol/L Potassium Level 3.8 mmol/L 3.8 mmol/L Chloride Level 108 mmol/L 108 mmol/L Carbon Dioxide Level 26 mmol/L 28 mmol/L Anion Gap 7.0 mmol/L 6.0 mmol/L Blood Urea Nitrogen 7 mg/dl 5 mg/dl Creatinine 0.81 mg/dl 0.83 mg/dl Est Creatinine Clear Calc Drug Dose 95.0 ml/min 92.7 ml/min Estimated GFR () 118.6 115.2 Estimated GFR (Non- 102.4 99.4 BUN/Creatinine Ratio 9.0 6.2 Random Glucose 106 mg/dl 87 mg/dl Calcium Level 8.0 mg/dl 8.5 mg/dl Total Bilirubin 1.3 mg/dl 1.7 mg/dl Aspartate Amino Transf (AST/SGOT) 16 U/L 15 U/L Alanine Aminotransferase (ALT/SGPT) 19 U/L 18 U/L Alkaline Phosphatase 90 U/L 90 U/L Total Protein 6.1 gm/dl 6.1 gm/dl Albumin 3.4 gm/dl 3.3 gm/dl Globulin 2.7 gm/dl 2.8 gm/dl Albumin/Globulin Ratio 1.3 1.2 Lipase 125 U/L 107 U/L Magnesium Level 1.7 mg/dl Triglycerides Level 42 mg/dl Cholesterol Level 125 mg/dl HDL Cholesterol 45 mg/dl LDL Cholesterol, Calculated 72 mg/dl VLDL Cholesterol, Calculated 8 mg/dl Cholesterol/HDL Ratio 2.8 Assessment and Plan epigastric pain---could be pancreatitis despite negative u/s and lipase given how many acute attacks patient has had and feels like typical episode per patient. I and O not accurate but patient seems to be voiding good deal and frequently so cut back IVF to 125 an hour and spoke with nurse about strict recording of I/O this shift. Pt is asking about clear liquids. When MRCP done and is continuing to do ok could try clears later in the day. elevated TB--new 1.7--per patient this is higher than she has been told it ever was in past and typically does not elevate with fasting. Check MRCP to look for sludge/stone in CBD nausea and vomiting--improved recurrent pancreattisi etiology unclear with ERCP with stents, s/p airam, testing for autoimmune and cystic fibrosis negative per patient. No ETOH per patient. Triglycerides 42 today so normal. Diarrhea--history of Cdiff so check stool for Cdiff, pancreas exocrine insufficiency in the differential also. No stools fasting so Cdiff is less likely.
[2017-02-15] MEDS: ADDERALL 30 MG SCH (09:00)
[2017-02-15] MEDS: PANCREAZE (LIPASE 4,200U) CAP PO SCH ×4 (09:00→21:00)
[2017-02-15] MEDS: AMPHETAMINE-DEXTROAMPHETAMINE 30 MG CAP PO SCH (09:24)
--- NOTE | 2017-02-15 14:00 | Hospitalist Progress Note ---
Hospitalist Progress Note Date of Service Feb 15, 2017. Subjective Pt evaluation today including: conversation w/ patient Patient states abdominal pain is better however admits to / tension headache. States pain medication provides minimal relief Constitutional: No fever Eyes: No worsening of vision ENT: No hearing loss Respiratory: No cough, No shortness of breath Cardiovascular: No chest pain Abdomen: + nausea, + pain, No constipation, No diarrhea, No vomiting Musculoskeletal: No joint pain Female : No dysuria Neurologic: No memory loss Psychiatric: No depression symptoms Medications Current Inpatient Medications Medications (Trade) Dose Ordered Sig/Ethan Route Start Time Stop Time Status Last Admin Dose Admin Acetaminophen (Tylenol Tab) 650 mg Q4H PRN PO 02/14/17 03:45 03/16/17 03:44 Al Hydrox/Mg Hydrox/Simethicone (Maalox Max Susp) 15 ml Q4H PRN PO 02/14/17 03:45 03/16/17 03:44 Polyethylene (Miralax Powder Packet) 17 gm DAILY PRN PO 02/14/17 04:00 03/16/17 03:59 Ondansetron HCl (Zofran Inj) 4 mg Q6H PRN IV 02/14/17 03:45 03/16/17 03:44 02/15/17 01:05 4 MG Hydromorphone HCl (Dilaudid Inj) 0.5 mg Q3H PRN IV 02/14/17 05:00 02/28/17 04:59 02/15/17 12:04 0.5 MG Miscellaneous Information (Order Awaiting Action) 1 ea QS N/A 02/14/17 08:00 03/16/17 07:59 Non-Formulary Medication (Patient'S Own Controlled Med) 1 ea DAILY N/A 02/14/17 09:30 02/28/17 09:29 Sertraline HCl (Zoloft Tab) 25 mg HS PO 02/14/17 21:00 03/16/17 08:59 02/14/17 22:06 25 MG Trazodone HCl (Desyrel Tab) 50 mg HS PO 02/14/17 21:00 03/16/17 08:59 Amylase/Lipase/ Protease 1 cap 1 cap TID PO 02/14/17 21:00 03/16/17 20:59 Lactated Ringer's (Lr 1000ml) 1,000 ml @ 125 mls/hr Q8H IV 02/14/17 15:15 02/15/17 09:23 125 MLS/HR Objective Vital Signs Date Time Temp Pulse Resp B/P Pulse Ox O2 Delivery O2 Flow Rate FiO2 02/15/17 08:00 Room Air 02/15/17 07:00 36.6 70 19 107/67 98 Room Air 02/15/17 00:15 Room Air 02/14/17 23:27 36.7 67 19 124/79 98 Room Air 02/14/17 15:30 36.6 66 18 128/85 100 Room Air 02/14/17 15:15 Room Air Physical Exam General Appearance: WD/WN, no apparent distress Eyes: normal inspection ENT: normal ENT inspection Neck: no adenopathy Respiratory/Chest: chest non-tender, lungs clear Cardiovascular: regular rate, rhythm Abdomen: normal bowel sounds, non tender, soft Extremities: normal range of motion, non-tender Neurologic/Psychiatric: cook helper II-XII nml as tested, no motor/sensory deficits, alert, oriented x 3 Skin: normal color, warm/dry Lymphatic: no adenopathy Laboratory Results Last 24 Hours Test 02/14/17 18:27 02/15/17 06:50 White Blood Count 4.10 K/uL 3.64 K/uL Red Blood Count 4.09 M/uL 4.13 M/uL Hemoglobin 12.6 g/dL 12.6 g/dL Hematocrit 36.4 % 36.7 % Mean Corpuscular Volume 89.0 fL 88.9 fL Mean Corpuscular Hemoglobin 30.8 pg 30.5 pg Mean Corpuscular Hemoglobin Concent 34.6 g/dl 34.3 g/dl Platelet Count 202 K/uL 195 K/uL Mean Platelet Volume 9.0 fL 9.1 fL Neutrophils (%) (Auto) 47.1 % 44.3 % Lymphocytes (%) (Auto) 40.0 % 40.7 % Monocytes (%) (Auto) 10.7 % 11.8 % Eosinophils (%) (Auto) 2.0 % 2.7 % Basophils (%) (Auto) 0.2 % 0.5 % Neutrophils # (Auto) 1.93 K/uL 1.61 K/uL Lymphocytes # (Auto) 1.64 K/uL 1.48 K/uL Monocytes # (Auto) 0.44 K/uL 0.43 K/uL Eosinophils # (Auto) 0.08 K/uL 0.10 K/uL Basophils # (Auto) 0.01 K/uL 0.02 K/uL RDW Standard Deviation 44.2 fL 43.5 fL RDW Coefficient of Variation 13.4 % 13.3 % Immature Granulocyte % (Auto) 0.0 % 0.0 % Immature Granulocyte # (Auto) 0.00 K/uL 0.00 K/uL Sodium Level 141 mmol/L 142 mmol/L Potassium Level 3.8 mmol/L 3.8 mmol/L Chloride Level 108 mmol/L 108 mmol/L Carbon Dioxide Level 26 mmol/L 28 mmol/L Anion Gap 7.0 mmol/L 6.0 mmol/L Blood Urea Nitrogen 7 mg/dl 5 mg/dl Creatinine 0.81 mg/dl 0.83 mg/dl Est Creatinine Clear Calc Drug Dose 95.0 ml/min 92.7 ml/min Estimated GFR () 118.6 115.2 Estimated GFR (Non- 102.4 99.4 BUN/Creatinine Ratio 9.0 6.2 Random Glucose 106 mg/dl 87 mg/dl Calcium Level 8.0 mg/dl 8.5 mg/dl Total Bilirubin 1.3 mg/dl 1.7 mg/dl Aspartate Amino Transf (AST/SGOT) 16 U/L 15 U/L Alanine Aminotransferase (ALT/SGPT) 19 U/L 18 U/L Alkaline Phosphatase 90 U/L 90 U/L Total Protein 6.1 gm/dl 6.1 gm/dl Albumin 3.4 gm/dl 3.3 gm/dl Globulin 2.7 gm/dl 2.8 gm/dl Albumin/Globulin Ratio 1.3 1.2 Lipase 125 U/L 107 U/L Magnesium Level 1.7 mg/dl Triglycerides Level 42 mg/dl Cholesterol Level 125 mg/dl HDL Cholesterol 45 mg/dl LDL Cholesterol, Calculated 72 mg/dl VLDL Cholesterol, Calculated 8 mg/dl Cholesterol/HDL Ratio 2.8 Assessment and Plan 21-year-old female with past medical history of chronic pancreatitis presented with progressively worsening abdominal pain Chronic pancreatitis: - appreciate GI input - MRCP scheduled for today - clear liquid diet - antiemetics Tension Headache - start tordol Chronic diarrhea: - Likely secondary to chronic pancreatitis - check c diff Pancreatic exocrine insufficiency - continue creon - vitamin D level pending - CM aware to set up as outpatient Full code DVT prophylaxis: SCDs
[2017-02-15] MEDS ORDERED: MAGNESIUM OXIDE 400 MG TAB PO ONE (14:30)
[2017-02-15 15:05] VITALS: BP 121/80; PULSE 70; TEMP 36.9; O2SAT 98
[2017-02-15] MEDS: KETOROLAC TROMETHAMINE 15 MG/ML VIAL IV PRN ×2 (15:23→22:28)
[2017-02-15 19:41] VITALS: BP 128/78; PULSE 66; TEMP 36.7; O2SAT 99
--- NOTE | 2017-02-15 19:42 | DIAGNOSTIC IMAGING REPORT ---
MRCP CLINICAL HISTORY: recurrent pancreatitis, s/p airam, r/o sludge/stone pain. Nausea. Pancreatitis. TECHNIQUE: Multiaxial MRI acquisition COMPARISON STUDY: 08/21/2013 FINDINGS: Prior cholecystectomy. Normal appearance to the pancreatic and biliary ductal systems. No significant filling defects. Liver is uniform throughout. Pancreas is unremarkable. There is no peripancreatic infiltrative change. Spleen is uniform. Kidneys are uniform in appearance. Bowel pattern is nonobstructive. Abdominal aorta is normal in course and caliber. IMPRESSION: 1. Negative MRCP. 2. Prior cholecystectomy. 3. Otherwise negative MRI of the abdomen Electronically signed by: Hugh Fuentes M.D. 02/15/2017 5:37 PM Dictated Date/Time: 02/15/2017 5:34 PM
[2017-02-15] MEDS: TRAZODONE HCL 50 MG TAB PO SCH (21:00)
[2017-02-15] MEDS: SERTRALINE HCL 50 MG TAB PO SCH (22:24)
[2017-02-15 23:15] VITALS: BP 133/85; PULSE 58; TEMP 36.6; O2SAT 99
[2017-02-16] MEDS ORDERED: NURSING VERBAL MED ORDER ONE (00:30)
[2017-02-16] MEDS ORDERED: ACETAMINOPHEN 500 MG TAB PO ONE (00:45)
[2017-02-16] MEDS: LACTATED RINGER'S 1000ML 1,000 ML IV SCH ×2 (01:24→09:27)
[2017-02-16] MEDS: HYDROmorphone INJ 0.5 MG/0.5 ML SYR IV PRN ×5 (01:27→20:42)
[2017-02-16 03:26] VITALS: BP 104/66; PULSE 65; TEMP 36.6; O2SAT 98
[2017-02-16] MEDS: KETOROLAC TROMETHAMINE 15 MG/ML VIAL IV PRN (05:49)
[2017-02-16 06:46] LABS: BASO % 0.3 %; BASO ABS # 0.01 K/uL (0-0.2); COMPLETE YES; EOS % 2.7 %; HEMATOCRIT 37.3 % (37-47); LYMPH % 40.5 %; LYMPH ABS # 1.51 K/uL (1.2-3.4); MEAN CELL VOLUME 86.3 fL (80-100); MEAN CORPUSCULAR HEMOGLOBIN 30.1 pg (25-34); MEAN CORPUSCULAR HGB CONC 34.9 g/dl (32-36); MEAN PLATELET VOLUME 9.1 fL (7.4-10.4); MONO % 13.7 %; NEUT % 42.8 %; PLATELET COUNT 225 K/uL (130-400); RED BLOOD COUNT 4.32 M/uL (4.2-5.4); WHITE BLOOD COUNT 3.73 K/uL (4.8-10.8)
[2017-02-16 07:45] VITALS: BP 121/80; PULSE 70; TEMP 36.9; O2SAT 98
[2017-02-16 08:22] LABS: BUN/CREATININE RATIO 11.3 (10-20); CREATININE 0.77 mg/dl (0.60-1.20); POTASSIUM 3.6 mmol/L (3.5-5.1)
[2017-02-16 08:25] LABS: ALB/GLOB RATIO 1.2 (0.9-2)
[2017-02-16] MEDS: ADDERALL 30 MG SCH (08:39)
--- NOTE | 2017-02-16 08:52 | Gastroenterology Progress Note ---
Progress Note Date of Service: Feb 16, 2017 Subjective Pt evaluation today including: conversation w/ patient, physical exam, chart review, lab review, review of studies, review of inpatient medication list CC f/u abd pain HPI Pt states abd pain improved. Feels like she could try clear liquids. NO stools this admit. Review of Systems Respiratory: No shortness of breath Cardiac: No chest pain Medications Current Inpatient Medications Medications (Trade) Dose Ordered Sig/Ethan Route Start Time Stop Time Status Last Admin Dose Admin Acetaminophen (Tylenol Tab) 650 mg Q4H PRN PO 02/14/17 03:45 03/16/17 03:44 02/15/17 20:10 650 MG Al Hydrox/Mg Hydrox/Simethicone (Maalox Max Susp) 15 ml Q4H PRN PO 02/14/17 03:45 03/16/17 03:44 Polyethylene (Miralax Powder Packet) 17 gm DAILY PRN PO 02/14/17 04:00 03/16/17 03:59 Ondansetron HCl (Zofran Inj) 4 mg Q6H PRN IV 02/14/17 03:45 03/16/17 03:44 02/15/17 01:05 4 MG Hydromorphone HCl (Dilaudid Inj) 0.5 mg Q3H PRN IV 02/14/17 05:00 02/28/17 04:59 02/16/17 01:27 0.5 MG Miscellaneous Information (Order Awaiting Action) 1 ea QS N/A 02/14/17 08:00 03/16/17 07:59 Non-Formulary Medication (Patient'S Own Controlled Med) 1 ea DAILY N/A 02/14/17 09:30 02/28/17 09:29 Sertraline HCl (Zoloft Tab) 25 mg HS PO 02/14/17 21:00 03/16/17 08:59 02/15/17 22:24 25 MG Trazodone HCl (Desyrel Tab) 50 mg HS PO 02/14/17 21:00 03/16/17 08:59 Amylase/Lipase/ Protease 1 cap 1 cap TID PO 02/14/17 21:00 03/16/17 20:59 Lactated Ringer's (Lr 1000ml) 1,000 ml @ 125 mls/hr Q8H IV 02/14/17 15:15 4/13/17 01:24 125 MLS/HR Ketorolac Tromethamine (Toradol Inj) 15 mg Q6H PRN IV 02/15/17 14:00 02/20/17 13:59 02/16/17 05:49 15 MG Objective Vital Signs Date Time Temp Pulse Resp B/P Pulse Ox O2 Delivery O2 Flow Rate FiO2 02/16/17 08:10 Room Air 02/16/17 07:45 36.9 70 16 121/80 98 Room Air 02/16/17 03:26 36.6 65 14 104/66 98 Room Air 02/16/17 00:05 Room Air 02/15/17 23:15 36.6 58 14 133/85 99 Room Air 02/15/17 19:41 36.7 66 18 128/78 99 Room Air 02/15/17 15:20 Room Air 02/15/17 15:05 36.9 70 16 121/80 98 Room Air Physical Exam General Appearance: WD/WN, no apparent distress Respiratory/Chest: lungs clear, no respiratory distress Cardiovascular: regular rate, rhythm Abdomen: normal bowel sounds, non tender, soft, no organomegaly Laboratory Results Last 24 Hours Test 02/16/17 06:10 White Blood Count 3.73 K/uL Red Blood Count 4.32 M/uL Hemoglobin 13.0 g/dL Hematocrit 37.3 % Mean Corpuscular Volume 86.3 fL Mean Corpuscular Hemoglobin 30.1 pg Mean Corpuscular Hemoglobin Concent 34.9 g/dl Platelet Count 225 K/uL Mean Platelet Volume 9.1 fL Neutrophils (%) (Auto) 42.8 % Lymphocytes (%) (Auto) 40.5 % Monocytes (%) (Auto) 13.7 % Eosinophils (%) (Auto) 2.7 % Basophils (%) (Auto) 0.3 % Neutrophils # (Auto) 1.60 K/uL Lymphocytes # (Auto) 1.51 K/uL Monocytes # (Auto) 0.51 K/uL Eosinophils # (Auto) 0.10 K/uL Basophils # (Auto) 0.01 K/uL RDW Standard Deviation 41.4 fL RDW Coefficient of Variation 12.9 % Immature Granulocyte % (Auto) 0.0 % Immature Granulocyte # (Auto) 0.00 K/uL Sodium Level 139 mmol/L Potassium Level 3.6 mmol/L Chloride Level 104 mmol/L Carbon Dioxide Level 28 mmol/L Anion Gap 7.0 mmol/L Blood Urea Nitrogen 9 mg/dl Creatinine 0.77 mg/dl Est Creatinine Clear Calc Drug Dose 99.9 ml/min Estimated GFR () 126.1 Estimated GFR (Non- 108.8 BUN/Creatinine Ratio 11.3 Random Glucose 89 mg/dl Total Bilirubin 1.6 mg/dl Aspartate Amino Transf (AST/SGOT) 16 U/L Alanine Aminotransferase (ALT/SGPT) 20 U/L Alkaline Phosphatase 100 U/L Total Protein 6.2 gm/dl Albumin 3.4 gm/dl Globulin 2.8 gm/dl Albumin/Globulin Ratio 1.2 Lipase 81 U/L Assessment and Plan epigastric pain---could be pancreatitis despite negative u/s and lipase given how many acute attacks patient has had and feels like typical episode per patient. Improved. Trial of clear liquids elevated TB--1.6, better. MRCP negative. Perhaps patient has [place] syndrome nausea and vomiting--improved recurrent pancreattisi etiology unclear with ERCP with stents, s/p airam, testing for autoimmune and cystic fibrosis negative per patient. No ETOH per patient. Triglycerides 42 so normal. Diarrhea--history of Cdiff so check stool for Cdiff, pancreas exocrine insufficiency in the differential also. No stools fasting so Cdiff is less likely.
[2017-02-16] MEDS: AMPHETAMINE-DEXTROAMPHETAMINE 30 MG CAP PO SCH (09:26)
[2017-02-16] MEDS: PANCREAZE (LIPASE 4,200U) CAP PO SCH ×3 (09:27→20:44)
[2017-02-16] MEDS: ONDANSETRON INJ 2 MG/ML 2 ML VIAL IV PRN ×2 (09:54→15:53)
[2017-02-16 15:30] VITALS: BP 127/84; PULSE 78; TEMP 36.7; O2SAT 97
--- NOTE | 2017-02-16 16:00 | Hospitalist Progress Note ---
Hospitalist Progress Note Date of Service Feb 16, 2017. Subjective Pt evaluation today including: conversation w/ patient Patient had no acute issues overnight She ate clears this am for breakfast and states she is mildly nasueas however denies any abdominal pain Constitutional: No fever, No see HPI Eyes: No worsening of vision ENT: No hearing loss Respiratory: No cough, No shortness of breath Cardiovascular: No chest pain, No edema Abdomen: + nausea, No diarrhea, No pain, No vomiting Musculoskeletal: No joint pain Objective Vital Signs Date Time Temp Pulse Resp B/P Pulse Ox O2 Delivery O2 Flow Rate FiO2 02/16/17 08:10 Room Air 02/16/17 07:45 36.9 70 16 121/80 98 Room Air 02/16/17 03:26 36.6 65 14 104/66 98 Room Air 02/16/17 00:05 Room Air 02/15/17 23:15 36.6 58 14 133/85 99 Room Air 02/15/17 19:41 36.7 66 18 128/78 99 Room Air 02/15/17 15:20 Room Air 02/15/17 15:05 36.9 70 16 121/80 98 Room Air Physical Exam General Appearance: WD/WN, no apparent distress Eyes: normal inspection ENT: normal ENT inspection Neck: supple Respiratory/Chest: chest non-tender, lungs clear Cardiovascular: regular rate, rhythm, no edema Abdomen: non tender, soft, + abnormal bowel sounds (hypoactive) Extremities: normal range of motion, non-tender Neurologic/Psychiatric: physical chemist II-XII nml as tested, no motor/sensory deficits, alert, oriented x 3 Skin: normal color, warm/dry, no rash Lymphatic: no adenopathy Laboratory Results Last 24 Hours Test 02/16/17 06:10 White Blood Count 3.73 K/uL Red Blood Count 4.32 M/uL Hemoglobin 13.0 g/dL Hematocrit 37.3 % Mean Corpuscular Volume 86.3 fL Mean Corpuscular Hemoglobin 30.1 pg Mean Corpuscular Hemoglobin Concent 34.9 g/dl Platelet Count 225 K/uL Mean Platelet Volume 9.1 fL Neutrophils (%) (Auto) 42.8 % Lymphocytes (%) (Auto) 40.5 % Monocytes (%) (Auto) 13.7 % Eosinophils (%) (Auto) 2.7 % Basophils (%) (Auto) 0.3 % Neutrophils # (Auto) 1.60 K/uL Lymphocytes # (Auto) 1.51 K/uL Monocytes # (Auto) 0.51 K/uL Eosinophils # (Auto) 0.10 K/uL Basophils # (Auto) 0.01 K/uL RDW Standard Deviation 41.4 fL RDW Coefficient of Variation 12.9 % Immature Granulocyte % (Auto) 0.0 % Immature Granulocyte # (Auto) 0.00 K/uL Sodium Level 139 mmol/L Potassium Level 3.6 mmol/L Chloride Level 104 mmol/L Carbon Dioxide Level 28 mmol/L Anion Gap 7.0 mmol/L Blood Urea Nitrogen 9 mg/dl Creatinine 0.77 mg/dl Est Creatinine Clear Calc Drug Dose 99.9 ml/min Estimated GFR () 126.1 Estimated GFR (Non- 108.8 BUN/Creatinine Ratio 11.3 Random Glucose 89 mg/dl Calcium Level 9.0 mg/dl Total Bilirubin 1.6 mg/dl Aspartate Amino Transf (AST/SGOT) 16 U/L Alanine Aminotransferase (ALT/SGPT) 20 U/L Alkaline Phosphatase 100 U/L Total Protein 6.2 gm/dl Albumin 3.4 gm/dl Globulin 2.8 gm/dl Albumin/Globulin Ratio 1.2 Lipase 81 U/L Assessment and Plan 21-year-old female with past medical history of chronic pancreatitis presented with progressively worsening abdominal pain Chronic pancreatitis: - appreciate GI input - MRCPnegative - trial clear liquid diet /advacne diet as tolerated - antiemetics Tension Headache - continue tordol Chronic diarrhea: - Likely secondary to chronic pancreatitis - c diff pending Pancreatic exocrine insufficiency - continue creon/CM aware to ensure insurance will cover - vitamin D level pending Full code DVT prophylaxis: SCDs
[2017-02-16] MEDS: SERTRALINE HCL 50 MG TAB PO SCH (20:42)
[2017-02-16] MEDS: TRAZODONE HCL 50 MG TAB PO SCH (20:46)
[2017-02-16 23:00] VITALS: BP 115/79; PULSE 70; TEMP 36.7; O2SAT 100
[2017-02-17] MEDS: HYDROmorphone INJ 0.5 MG/0.5 ML SYR IV PRN ×3 (00:14→13:52)
[2017-02-17 07:00] LABS: BASO % 0.5 %; BASO ABS # 0.02 K/uL (0-0.2); COMPLETE YES; EOS % 2.5 %; HEMATOCRIT 39.8 % (37-47); LYMPH % 35.3 %; LYMPH ABS # 1.44 K/uL (1.2-3.4); MEAN CELL VOLUME 86.9 fL (80-100); MEAN CORPUSCULAR HEMOGLOBIN 30.1 pg (25-34); MEAN CORPUSCULAR HGB CONC 34.7 g/dl (32-36); MONO % 12.3 %; NEUT % 49.4 %; PLATELET COUNT 245 K/uL (130-400); RED BLOOD COUNT 4.58 M/uL (4.2-5.4); WHITE BLOOD COUNT 4.08 K/uL (4.8-10.8)
[2017-02-17 07:04] VITALS: BP 109/74; PULSE 70; TEMP 36.6; O2SAT 96
[2017-02-17 07:40] LABS: ALB/GLOB RATIO 1.1 (0.9-2); BUN/CREATININE RATIO 9.5 (10-20); CALCIUM 8.4 mg/dl (8.5-10.1); CREATININE 0.78 mg/dl (0.60-1.20); POTASSIUM 3.6 mmol/L (3.5-5.1)
[2017-02-17] MEDS: AMPHETAMINE-DEXTROAMPHETAMINE 30 MG CAP PO SCH (09:30)
[2017-02-17] MEDS: ONDANSETRON INJ 2 MG/ML 2 ML VIAL IV PRN ×2 (09:30→16:41)
[2017-02-17] MEDS: ADDERALL 30 MG SCH (09:31)
[2017-02-17] MEDS: PANCREAZE (LIPASE 4,200U) CAP PO SCH ×3 (09:31→21:04)
--- NOTE | 2017-02-17 11:43 | PROGRESS NOTE ---
DATE: 02/17/2017 SUBJECTIVE: The patient states that she had clear liquids for breakfast today as well as yesterday and still having some abdominal pain, rated about 5/10, which is about where it was when she came in the hospital. She states that she really has not eaten any solid food for at least 3 days and thinks that the abdominal pain may be just the fact she has not eaten. Her lab tests continue to remain normal, vital signs are normal. OBJECTIVE: On exam, she has laparoscopic cholecystectomy scars. Bowel sounds are hypoactive. There is some tenderness in the epigastric area to deep palpation but no masses or rebound. IMPRESSION AND PLAN: The patient has recurrent pancreatitis of unclear etiology. Her labs are improving. The patient has been advanced to solid food for lunch today and I told her that if it makes her pain worse then to back down to liquids again, until she feels like she is able to tolerate more solid food. Will continue to follow the patient during her hospital stay.
[2017-02-17 14:56] VITALS: BP 123/81; PULSE 76; TEMP 36.7; O2SAT 97
--- NOTE | 2017-02-17 16:30 | Hospitalist Progress Note ---
Hospitalist Progress Note Date of Service Feb 17, 2017. Subjective Pt evaluation today including: conversation w/ patient Patient had no acute issues Patient had no chest pain, SOB Patient admits to nausea however wants to advance diet Constitutional: No fever Eyes: No worsening of vision ENT: No hearing loss Respiratory: No cough, No shortness of breath Cardiovascular: No chest pain Abdomen: + nausea, + pain Musculoskeletal: No joint pain Female : No dysuria Neurologic: No memory loss Psychiatric: No depression symptoms Endo: No fatigue Skin: No rash Objective Vital Signs Date Time Temp Pulse Resp B/P Pulse Ox O2 Delivery O2 Flow Rate FiO2 02/17/17 14:56 36.7 76 16 123/81 97 Room Air 02/17/17 08:00 Room Air 02/17/17 07:04 36.6 70 16 109/74 96 Room Air 02/16/17 23:00 36.7 70 18 115/79 100 Room Air 02/16/17 20:30 Room Air Physical Exam General Appearance: WD/WN, no apparent distress Eyes: normal inspection ENT: normal ENT inspection Neck: supple, no adenopathy Respiratory/Chest: chest non-tender, lungs clear Cardiovascular: regular rate, rhythm, no edema Abdomen: normal bowel sounds, non tender, soft Extremities: normal range of motion, non-tender 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, no motor/sensory deficits, alert, oriented x 3 Skin: normal color, warm/dry, no rash Lymphatic: no adenopathy Laboratory Results Last 24 Hours Test 02/17/17 06:30 White Blood Count 4.08 K/uL Red Blood Count 4.58 M/uL Hemoglobin 13.8 g/dL Hematocrit 39.8 % Mean Corpuscular Volume 86.9 fL Mean Corpuscular Hemoglobin 30.1 pg Mean Corpuscular Hemoglobin Concent 34.7 g/dl Platelet Count 245 K/uL Mean Platelet Volume 9.0 fL Neutrophils (%) (Auto) 49.4 % Lymphocytes (%) (Auto) 35.3 % Monocytes (%) (Auto) 12.3 % Eosinophils (%) (Auto) 2.5 % Basophils (%) (Auto) 0.5 % Neutrophils # (Auto) 2.02 K/uL Lymphocytes # (Auto) 1.44 K/uL Monocytes # (Auto) 0.50 K/uL Eosinophils # (Auto) 0.10 K/uL Basophils # (Auto) 0.02 K/uL RDW Standard Deviation 42.3 fL RDW Coefficient of Variation 13.3 % Immature Granulocyte % (Auto) 0.0 % Immature Granulocyte # (Auto) 0.00 K/uL Sodium Level 140 mmol/L Potassium Level 3.6 mmol/L Chloride Level 104 mmol/L Carbon Dioxide Level 29 mmol/L Anion Gap 7.0 mmol/L Blood Urea Nitrogen 7 mg/dl Creatinine 0.78 mg/dl Est Creatinine Clear Calc Drug Dose 98.6 ml/min Estimated GFR () 124.2 Estimated GFR (Non- 107.2 BUN/Creatinine Ratio 9.5 Random Glucose 92 mg/dl Calcium Level 8.4 mg/dl Total Bilirubin 1.1 mg/dl Aspartate Amino Transf (AST/SGOT) 13 U/L Alanine Aminotransferase (ALT/SGPT) 20 U/L Alkaline Phosphatase 100 U/L Total Protein 6.8 gm/dl Albumin 3.6 gm/dl Globulin 3.2 gm/dl Albumin/Globulin Ratio 1.1 Lipase 130 U/L Assessment and Plan 21-year-old female with past medical history of chronic pancreatitis presented with progressively worsening abdominal pain Chronic pancreatitis: - appreciate GI input - MRCPnegative - advance to full liquid diet - antiemetics Tension Headache - continue tordol Chronic diarrhea: - Likely secondary to chronic pancreatitis Pancreatic exocrine insufficiency - continue creon/CM aware to ensure insurance will cover - vitamin D level pending Full code DVT prophylaxis: SCDs
[2017-02-17] MEDS: KETOROLAC TROMETHAMINE 15 MG/ML VIAL IV PRN (16:41)
[2017-02-17] MEDS: SERTRALINE HCL 50 MG TAB PO SCH (21:05)
[2017-02-17 23:25] VITALS: BP 124/82; PULSE 81; TEMP 36.7; O2SAT 98
[2017-02-18] MEDS: TRAZODONE HCL 50 MG TAB PO SCH (00:09)
[2017-02-18 07:07] VITALS: BP 104/70; PULSE 87; TEMP 36.7; O2SAT 96
[2017-02-18] MEDS: ADDERALL 30 MG SCH (07:30)
[2017-02-18 07:55] VITALS: O2SAT 96
[2017-02-18] MEDS: AMPHETAMINE-DEXTROAMPHETAMINE 30 MG CAP PO SCH (08:16)
[2017-02-18] MEDS: PANCREAZE (LIPASE 4,200U) CAP PO SCH (08:16)
[2017-02-18] MEDS ORDERED: AMPH30CA3 PO (09:51)
[2017-02-18] MEDS ORDERED: AMPH5CAP PO (09:51)
[2017-02-18] MEDS ORDERED: [UNRECOGNIZED DRUG - CODE] PO (09:51)
--- NOTE | 2017-02-18 09:52 | Discharge Instructions ---
Discharge Instructions Admission Admission Date: Feb 14, 2017 at 03:52 Admission Diagnosis: Chronic Pancreatitis, Intractable Abdominal Pain. Discharge Care Plan - Problem: Medical Problems: (1) Chronic pancreatitis Care Plan - Goal(s): Decrease discomfort, Improve function Care Plan - Instructions: Activity Recommendations: no limitations Recommended Home Diet: Regular Provider Instructions: Follow up with PCP in 1 week VTE Core Measure Inpt VTE Proph given/why not?: SCD's Laboratory Results Test Results: Hemoglobin A1c Test 02/14/17 06:09 Range/Units Estimated Average Glucose 103 mg/dl Hemoglobin A1c 5.2 4.5-5.6 % Lipid Panel Test 02/15/17 06:50 Range/Units Triglycerides Level 42 0-150 mg/dl Cholesterol Level 125 0-200 mg/dl HDL Cholesterol 45 mg/dl Cholesterol/HDL Ratio 2.8 LDL Cholesterol, Calculated 72 mg/dl Yodit Mark Recommendations: Call your doctor if: * Temperature above 101 degrees * Pain not relieved by pain medicine ordered * There is increased drainage or redness from any incision * You have any unanswered questions or concerns. Your Doctors Instructions noted above were prepared by provider Lena Crook.
[2017-02-18 10:32] VITALS: BP 104/70; PULSE 87; TEMP 36.7; O2SAT 96
--- NOTE | 2017-02-18 11:10 | Gastroenterology Progress Note ---
Progress Note Date of Service: Feb 18, 2017 Subjective Pt evaluation today including: conversation w/ patient, physical exam, chart review, lab review, review of studies, review of inpatient medication list CC f/u abd pain HPI Pt states abd pain present but not needing IV narcotics and is tolerating solid food. Had one loose large stool day or so ago then just very small. No stools collected. Pt wanting to go home. Review of Systems Respiratory: No shortness of breath Cardiac: No chest pain Medications Current Inpatient Medications Medications (Trade) Dose Ordered Sig/Ethan Route Start Time Stop Time Status Last Admin Dose Admin Acetaminophen (Tylenol Tab) 650 mg Q4H PRN PO 02/14/17 03:45 03/16/17 03:44 02/15/17 20:10 650 MG Al Hydrox/Mg Hydrox/Simethicone (Maalox Max Susp) 15 ml Q4H PRN PO 02/14/17 03:45 03/16/17 03:44 02/17/17 19:41 15 ML Polyethylene (Miralax Powder Packet) 17 gm DAILY PRN PO 02/14/17 04:00 03/16/17 03:59 02/16/17 12:48 17 GM Ondansetron HCl (Zofran Inj) 4 mg Q6H PRN IV 02/14/17 03:45 03/16/17 03:44 02/17/17 16:41 4 MG Miscellaneous Information (Order Awaiting Action) 1 ea QS N/A 02/14/17 08:00 03/16/17 07:59 Non-Formulary Medication (Patient'S Own Controlled Med) 1 ea DAILY N/A 02/14/17 09:30 02/28/17 09:29 Sertraline HCl (Zoloft Tab) 25 mg HS PO 02/14/17 21:00 03/16/17 08:59 02/17/17 21:05 25 MG Trazodone HCl (Desyrel Tab) 50 mg HS PO 02/14/17 21:00 03/16/17 08:59 02/18/17 00:09 50 MG Amylase/Lipase/ Protease (Pancreaze (Lipase 4,200U) Cap) 1 cap TID PO 02/14/17 21:00 03/16/17 20:59 02/18/17 08:16 1 CAP Ketorolac Tromethamine (Toradol Inj) 15 mg Q6H PRN IV 02/15/17 14:00 02/20/17 13:59 02/17/17 16:41 15 MG Objective Vital Signs Date Time Temp Pulse Resp B/P Pulse Ox O2 Delivery O2 Flow Rate FiO2 02/18/17 10:32 36.7 87 16 96 Room Air 02/18/17 07:55 96 Room Air 02/18/17 07:07 36.7 87 16 104/70 96 Room Air 02/17/17 23:50 Room Air 02/17/17 23:25 36.7 81 16 124/82 98 Room Air 02/17/17 15:50 Room Air 02/17/17 14:56 36.7 76 16 123/81 97 Room Air Physical Exam General Appearance: WD/WN, no apparent distress Cardiovascular: regular rate, rhythm Abdomen: normal bowel sounds, non tender, soft, no organomegaly Neurologic/Psych: normal mood/affect, oriented x 3 Assessment and Plan epigastric pain---could be pancreatitis despite negative u/s and lipase given how many acute attacks patient has had and feels like typical episode per patient. Improved. Tolerating solid diet. Could be DCed today from GI standpoint elevated TB-, better. MRCP negative. Perhaps patient has [place] syndrome nausea and vomiting--improved recurrent pancreattisi etiology unclear with ERCP with stents, s/p airam, testing for autoimmune and cystic fibrosis negative per patient. No ETOH per patient. Triglycerides 42 so normal. --pt has GI in [place] Diarrhea--history of Cdiff and cdif ordered but not collected. Told patient it is reasonable to go home on trial of pancreas enzymes both for pancreatitis and possible pancreas insufficiency. Told patient to follow with her GI if has recurrent diarrhea.
--- NOTE | 2017-02-18 12:16 | Discharge Summary ---
Discharge Summary Date of Service Feb 18, 2017. Discharge Summary Admission Date: Feb 14, 2017 at 03:52 Discharge Date: Feb 18, 2017 Discharge Disposition: Home Principal Diagnosis: Chronic Pancreatitis Problems/Secondary Diagnoses: (1) Brain bleed Status: Chronic (2) Ulcerative colitis Status: Chronic Immunizations: Have You Had Influenza Vaccine: No History of Tetanus Vaccine?: Unknown History of Pneumococcal: No History of Hepatitis B Vaccine: Unknown Consultations: GI Medication Reconciliation New Medications: Pancrelipase (Lipase-Protease- (Pancreaze) 1 Cap Cap 1 CAP PO TID for 30 Days, #90 CAP Continued Medications: Amphetamine-Dextroamphetamine 30MG (Adderall Xr 30MG) 1 Cap Cap 30 MG PO DAILY for 5 Days, #5 CAP (This prescription has been renewed) TAKE ONE 30 MG CAPSULE ALONG WITH ONE 5 MG CAPSULE TO EQUAL DAILY DOSE OF 35 MG. Amphetamine-Dextroamphetamine 5MG (Adderall Xr 5MG) 1 Cap Cap 5 MG PO DAILY for 5 Days, #5 CAP (This prescription has been renewed) TAKE ONE 5 MG CAPSULE ALONG WITH ONE 30 MG CAPSULE TO EQUAL DAILY DOSE OF 35 MG. Levonorgestrel (Iud) (Juliana) 13.5 Mg Iud 1 EA PV UD Sertraline (Zoloft) 50 Mg Tab 25 MG PO DAILY Trazodone Hcl (Trazodone) 50 Mg Tab 50 MG PO DAILY Discharge Exam Review of Systems: Constitutional: No chills Eyes: No worsening of vision ENT: No hearing loss Respiratory: No cough, No shortness of breath Cardiovascular: No chest pain Abdomen: No nausea, No pain Musculoskeletal: No joint pain Genitourinary - Female: No dysuria Genitourinary - Male: No hematuria Neurologic: No memory loss, No paralysis Endocrine: No fatigue Hematologic / Lymphatic: No abnormal bleeding/bruising Integumentary: No rash Physical Exam: General Appearance: WD/WN, no apparent distress Eyes: normal inspection ENT: normal ENT inspection Neck: supple Respiratory/Chest: chest non-tender Cardiovascular: regular rate, rhythm, no edema Abdomen / GI: normal bowel sounds, non tender, soft Neurologic/Psychiatric: 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 She complained of mid abdominal pain radiating to the back , about 6 on 10, associated with nausea. She denies any episodes of vomiting but has had diarrhea almost every day for about a month. Denies any fevers or chills or any recent viral illnesses.She follows with specialist at [facility] and has not had acute attacks since last summer. She was tested extensively for any structural changes, cystic fibrosis etc. She had earlier used Creon but had stopped it as it caused constipation. She tries to eat a low-fat diet. She has no history of diabetes. Denies any alcohol intake, smoking, illicit drugs. Denies any dysuria, hematuria, urinary frequency, BRBPR, melena. 21-year-old female with past medical history of chronic pancreatitis presented with progressively worsening abdominal pain Chronic pancreatitis: - appreciated GI input - MRCP done showed no biliary dilation or acute abnormality - started on IVF and NPO -diet was advanced to a regular diet - symptoms improved over duration of admission - antiemetics given prn Tension Headache - given tordol, symptoms improved over hospital stay Chronic diarrhea: - Likely secondary to chronic pancreatitis Pancreatic exocrine insufficiency - started creon ADHD - on Adderall/given inpatient - at time of d/c patient stated she was out and would be unable to refill until after holiday weekends - given 5 days supply of Adderall - prescription database checked Full code DVT prophylaxis: SCDs Total Time Spent: Greater than 30 minutes This includes examination of the patient, discharge planning, medication reconciliation, and communication with other providers. Discharge Instructions Please refer to the electronic Patient Visit Report (Discharge Instructions) for additional information. Additional Copies To MARIANNE HOFFMANN M.D.
== END 2017-02-18 12:04 | disposition home or self-care (01) | DRG 440 ==
LOC: ENRESERVDT → ENRESERVTM → C.EDB 22:50 → C.MSW 02-14 03:52
PROVIDERS: ADMIT Family Medicine; ATTEND Internal Medicine
DX: K86.1 Other chronic pancreatitis (principal); G44.209 Tension-type headache, unspecified, not intractable; K86.81 Exocrine pancreatic insufficiency; F90.9 Attention-deficit hyperactivity disorder, unspecified type; Z82.49 Family history of ischemic heart disease and other diseases of the circulatory system; Z83.3 Family history of diabetes mellitus; K86.89 Other specified diseases of pancreas

== ENCOUNTER 2018-02-06 15:10 | Inpatient (IN) | payer BC, OTHER ==
[~2018-02-06] VITALS: Ht 170.2 cm; Wt 64.5 kg
[~2018-02-06 15:10] MED LIST changes: -LEVO1IUD PV; +[UNRECOGNIZED DRUG - CODE] PO
[2018-02-06] MEDS ORDERED: ONDANSETRON INJ 2 MG/ML 2 ML VIAL IV STA (15:40)
[2018-02-06] MEDS ORDERED: SODIUM CHLORIDE 0.9% 1000ML 1,000 ML IV STA ×2 (15:40→15:45)
--- NOTE | 2018-02-06 15:58 | EMERGENCY ROOM VISIT NOTE ---
ED Visit Note First contact with patient: 15:33 CHIEF COMPLAINT: Abdominal pain, nausea HISTORY OF PRESENTING ILLNESS: This is a 22-year-old female with past medical history significant for chronic pancreatitis, who presented to the emergency department with complaint of epigastric pain, nausea and vomiting that started yesterday. Patient states that this feels very similar to previous attacks of pancreatitis she has had the past. She states that the pain is in the epigastric region and wraps around bilaterally to the back. States the pain is constant, worse with eating or drinking, better after Tylenol, currently rates as 4/10. She primarily complains of severe nausea, and states that she has not had almost anything to eat or drink for the past 24 hours. She states that usually when she starts to feel a flare of pancreatitis, she stopped eating or drinking to allow for rest, and this usually resolves the pain, however this time pain and nausea has been persistent. Patient is followed by GI doctor in [facility], and states that she has an appointment with him tomorrow. She states her pancreatitis is of unknown etiology, she has had at least 11 episodes in the past starting when she was 14, and her last flare was about 1 year ago. She denies any fevers or chills, headache, chest pain, shortness of breath, vomiting, bloody or black stools, urinary symptoms, abnormal vaginal discharge or bleeding, or rash. She states she is currently off of all of her medications, including the pancrelipase, she states she has been off of this for almost a year due to it causing constipation. REVIEW OF SYSTEMS: A complete 10 point review of systems was reviewed with the patient with pertinent positives and negatives as per history of present illness. All else were negative. PAST MEDICAL HISTORY: Reviewed in chart SOCIAL HISTORY: Lives at home. She is a [employer] student. From [place]. She denies tobacco, alcohol, and recreational drug use. ALLERGIES: Reviewed in chart. PHYSICAL EXAM: CONSTITUTIONAL: Pleasant and cooperative. No acute distress, but obviously uncomfortable. Moderately dehydrated. Otherwise well appearing and well nourished. HEENT: Normocephalic, atraumatic. Pupils equal, round and reactive to light, EOMI. TMs normal. Pharynx normal. Dry mucous membranes. NECK: Supple, full active range of motion without discomfort. No cervical adenopathy. RESPIRATORY: Clear to auscultation bilaterally with no wheezing, crackles, rhonchi or stridor. Equal expansion bilaterally. CARDIOVASCULAR: Regular rate and rhythm with no murmurs, rubs or gallops. Normal peripheral perfusion. No edema. GASTROINTESTINAL: Soft, tender in the epigastric and left upper quadrant abdomen , nondistended. Mild guarding. No rebound tenderness. No palpable masses or HSM. Bowel sounds present in all quadrants. No CVA tenderness. MUSCULOSKELETAL: Full range of motion of all joints without discomfort. INTEGUMENTARY: No rash or other significant dermatologic conditions noted. NEUROLOGIC: Alert and oriented X 4 with normal affect. Normal strength and sensation in all 4 extremities. No focal neurologic deficits noted. Normal speech. ED COURSE AND MEDICAL DECISION MAKING: CC: Patient presenting with complaint of abdominal pain and nausea DIFFERENTIAL DIAGNOSIS: Includes, but not limited to pancreatitis, choledocholithiasis, gastritis, GERD, peptic ulcer disease, gastroenteritis, electrolyte abnormality, dehydration, among others. INTERPRETATION OF LABS: No leukocytosis, no anemia, no significant electrolyte abnormalities, normal renal function, normal liver enzymes, elevated lipase. UA and urine pending. IMAGING: ABDOMINAL ULTRASOUND, RIGHT UPPER QUADRANT HISTORY: Epigastric pain. eval obstructing stone, pancreatitis. COMPARISON: Abdominal sound 02/13/2017. FINDINGS: Pancreas: Heterogeneous appearance of the pancreas, unchanged. No hepatic masses or peripancreatic fluid collections. Liver: Unremarkable. Gallbladder: The gallbladder is surgically absent. CBD: 6 mm. Right kidney: No hydronephrosis. IMPRESSION: No change compared to the prior study. No significant abnormality within the right upper quadrant. MEDICATION RECONCILIATION: I attest that I have personally reviewed the patient 's current medication list. INITIAL VITAL SIGNS REVIEW: I reviewed the patient's initial vital signs and interpret them as follows: T: Afebrile; BP: Hypertensive; HR: Tachycardic; RR : Within normal limits; Pulse Ox: Within normal limits on room air. Blood pressure screening: The patient was found to have an elevated blood pressure, which was felt to be situational. SUMMARY: Patient was evaluated at bedside, history and physical exam performed. Patient is alert and oriented, no acute distress but does appear uncomfortable, resting, and stretcher. Patient does appear to be moderately dehydrated on exam. Patient is markedly tender in the epigastric and left upper quadrant region of the abdomen with mild guarding, no rebound tenderness, abdomen is otherwise soft and nontender. Orders were placed at bedside for labs, UA and urine , 2L NSS IV fluids for hydration, IV Zofran for nausea, abdominal ultrasound to evaluate for pancreatitis. Patient was offered something for pain, she states that her pain has been feeling improved and she took Tylenol this morning and she does not wish to have any narcotics at this time. Patient discussed with Dr. Ortega, who agrees with my assessment and plan. Nursing staff called stating the patient is complaining of worse pain and is requesting medication, IV fentanyl ordered. Labs and imaging reviewed as above, lipase consistent with acute flare of pancreatitis. I discussed the results with the patient, she states that her pain has been persistent and is requesting another dose of pain medication. IV Dilaudid ordered. She does note that when her lipase is elevated, she usually has to be admitted for her pancreatitis. Patient reassessed multiple times throughout ED stay, her pain and nausea are improving with medications, but she is still uncomfortable. Tachycardia is improved with IV fluids. I discussed the patient with ERIBERTO Torres with the hospitalist team, who agrees to evaluate the patient for admission. Patient was updated on all results and plan for admission, she verbalized understanding and was agreeable to this plan. Patient was stable at time of admission. Problem List Medical Problems: (1) Acute pancreatitis Status: Resolved (2) ADHD (attention deficit hyperactivity disorder) Status: Chronic (3) Anxiety Status: Chronic (4) Brain bleed Status: Chronic (5) ICH (intracerebral hemorrhage) Status: Resolved (6) Pancreatitis Status: Chronic (7) Ulcerative colitis Status: Chronic Surgical Problems: (1) History of cholecystectomy Status: Resolved (2) History of colonoscopy Status: Resolved (3) History of wisdom tooth extraction Status: Resolved Current/Historical Medications Scheduled Levonorgestrel (Iud) (Juliana), 113.5 MG INT UTER UD Allergies Coded Allergies: Sulfa Antibiotics (Verified Allergy, Intermediate, HIVES, 02/13/17) Cephalexin (Verified Allergy, Unknown, UNKNOWN, 02/13/17) Moxifloxacin (Unverified Allergy, Unknown, adverse reaction, 02/06/18) patient had cdiff following moxifloxacin regimen, not a true allergy Penicillins (Verified Allergy, Unknown, HIVES, 4/10/17) Morphine (Verified Adverse Reaction, Intermediate, INCREASED PAIN, 02/13/17 ) Vital Signs Date Time Temp Pulse Resp B/P (MAP) Pulse Ox O2 Delivery O2 Flow Rate FiO2 02/06/18 18:30 69 20 120/76 99 Room Air 02/06/18 18:00 63 13 107/69 100 Room Air 02/06/18 17:31 114/73 02/06/18 17:30 69 19 99 Room Air 02/06/18 17:03 80 20 118/66 96 Room Air 02/06/18 16:21 66 12 119/65 98 Room Air 02/06/18 16:21 68 02/06/18 16:10 66 20 131/81 99 Room Air 02/06/18 15:12 36.9 101 18 133/91 98 Room Air Laboratory Results 02/06/18 15:50 Red Blood Count 4.73, Mean Corpuscular Volume 87.7, Mean Corpuscular Hemoglobin 30.9, Mean Corpuscular Hemoglobin Concent 35.2, Mean Platelet Volume 9.6, Neutrophils (%) (Auto) 64.5, Lymphocytes (%) (Auto) 21.2, Monocytes (%) (Auto) 12.8, Eosinophils (%) (Auto) 1.3, Basophils (%) (Auto) 0.1, Neutrophils # (Auto ) 4.47, Lymphocytes # (Auto) 1.47, Monocytes # (Auto) 0.89, Eosinophils # (Auto ) 0.09, Basophils # (Auto) 0.01 02/06/18 15:50 Test 02/06/18 15:50 02/06/18 18:28 White Blood Count 6.94 K/uL (4.8-10.8) Red Blood Count 4.73 M/uL (4.2-5.4) Hemoglobin 14.6 g/dL (12.0-16.0) Hematocrit 41.5 % (37-47) Mean Corpuscular Volume 87.7 fL (80-100) Mean Corpuscular Hemoglobin 30.9 pg (25-34) Mean Corpuscular Hemoglobin Concent 35.2 g/dl (32-36) Platelet Count 233 K/uL (130-400) Mean Platelet Volume 9.6 fL (7.4-10.4) Neutrophils (%) (Auto) 64.5 % Lymphocytes (%) (Auto) 21.2 % Monocytes (%) (Auto) 12.8 % Eosinophils (%) (Auto) 1.3 % Basophils (%) (Auto) 0.1 % Neutrophils # (Auto) 4.47 K/uL (1.4-6.5) Lymphocytes # (Auto) 1.47 K/uL (1.2-3.4) Monocytes # (Auto) 0.89 K/uL (0.11-0.59) Eosinophils # (Auto) 0.09 K/uL (0-0.5) Basophils # (Auto) 0.01 K/uL (0-0.2) RDW Standard Deviation 41.5 fL (36.4-46.3) RDW Coefficient of Variation 12.9 % (11.5-14.5) Immature Granulocyte % (Auto) 0.1 % Immature Granulocyte # (Auto) 0.01 K/uL (0.00-0.02) Anion Gap 5.0 mmol/L (3-11) Est Creatinine Clear Calc Drug Dose 90.7 ml/min Estimated GFR () 99.7 Estimated GFR (Non- 86.0 BUN/Creatinine Ratio 15.5 (10-20) Calcium Level 9.1 mg/dl (8.5-10.1) Total Bilirubin 1.0 mg/dl (0.2-1) Direct Bilirubin 0.2 mg/dl (0-0.2) Aspartate Amino Transf (AST/SGOT) 14 U/L (15-37) Alanine Aminotransferase (ALT/SGPT) 25 U/L (12-78) Alkaline Phosphatase 91 U/L (45-117) Total Protein 7.8 gm/dl (6.4-8.2) Albumin 3.9 gm/dl (3.4-5.0) Medications Administered Medications (Trade) Dose Ordered Sig/Ethan Route Start Time Stop Time Status Last Admin Dose Admin Sodium Chloride 1,000 ml @ 999 mls/hr Q1H1M STAT IV 02/06/18 15:40 02/06/18 16:40 DC 02/06/18 16:03 999 MLS/HR Ondansetron HCl (Zofran Inj) 4 mg NOW STAT IV 02/06/18 15:40 02/06/18 15:42 DC 02/06/18 16:03 4 MG Sodium Chloride 1,000 ml @ 999 mls/hr Q1H1M STAT IV 02/06/18 15:45 02/06/18 16:45 DC 02/06/18 16:03 999 MLS/HR Fentanyl Citrate (Fentanyl Inj) 50 mcg NOW STAT IV 02/06/18 16:09 02/06/18 16:11 DC 02/06/18 16:19 50 MCG Hydromorphone HCl (Dilaudid Inj) 0.5 mg NOW STAT IV 02/06/18 17:18 02/06/18 17:20 DC 02/06/18 17:33 0.5 MG Departure Information Impression Primary Impression: Acute on chronic pancreatitis Dispostion Admitted as an inpatient Condition FAIR Referrals No Doctor, Assigned (PCP) Patient Instructions [facility]
[2018-02-06 16:04] LABS: BASO % 0.1 %; BASO ABS # 0.01 K/uL (0-0.2); EOS % 1.3 %; EOS ABS # 0.09 K/uL (0-0.5); HEMATOCRIT 41.5 % (37-47); HEMOGLOBIN 14.6 g/dL (12.0-16.0); IG# 0.01 K/uL (0.00-0.02); LYMPH % 21.2 %; LYMPH ABS # 1.47 K/uL (1.2-3.4); MEAN CELL VOLUME 87.7 fL (80-100); MEAN CORPUSCULAR HEMOGLOBIN 30.9 pg (25-34); MEAN CORPUSCULAR HGB CONC 35.2 g/dl (32-36); MEAN PLATELET VOLUME 9.6 fL (7.4-10.4); MONO % 12.8 %; MONO ABS # 0.89 K/uL (0.11-0.59); NEUT % 64.5 %; NEUT ABS # 4.47 K/uL (1.4-6.5); PLATELET COUNT 233 K/uL (130-400); RED CELL DISTRIBUTION WIDTH CV 12.9 % (11.5-14.5); RED CELL DISTRIBUTION WIDTH SD 41.5 fL (36.4-46.3); WHITE BLOOD COUNT 6.94 K/uL (4.8-10.8)
[2018-02-06] MEDS ORDERED: FENTANYL CITRATE INJ 50 MCG/1 ML 2 ML VIAL IV STA (16:09)
[2018-02-06 16:20] LABS: ALBUMIN 3.9 gm/dl (3.4-5.0); CALCIUM 9.1 mg/dl (8.5-10.1); CREATININE 0.93 mg/dl (0.60-1.20); POTASSIUM 3.8 mmol/L (3.5-5.1)
[2018-02-06 16:23] LABS: TOTAL PROTEIN 7.8 gm/dl (6.4-8.2)
--- NOTE | 2018-02-06 16:57 | DIAGNOSTIC IMAGING REPORT ---
ABDOMINAL ULTRASOUND, RIGHT UPPER QUADRANT HISTORY: Epigastric pain. eval obstructing stone, pancreatitis. COMPARISON: Abdominal sound 02/13/2017. FINDINGS: Pancreas: Heterogeneous appearance of the pancreas, unchanged. No hepatic masses or peripancreatic fluid collections. Liver: Unremarkable. Gallbladder: The gallbladder is surgically absent. CBD: 6 mm. Right kidney: No hydronephrosis. IMPRESSION: No change compared to the prior study. No significant abnormality within the right upper quadrant. Electronically signed by: Ashok Stacy M.D. 02/06/2018 4:55 PM Dictated Date/Time: 02/06/2018 4:54 PM
[2018-02-06] MEDS ORDERED: HYDROmorphone INJ 0.5 MG/0.5 ML SYR IV STA (17:18)
[2018-02-06] MEDS ORDERED: LEVONORGESTREL INT UTER SCH (18:30)
[2018-02-06] MEDS ORDERED: HYDROmorphone INJ 0.5 MG/0.5 ML SYR IV PRN (18:30)
--- NOTE | 2018-02-06 18:46 | History and Physical ---
History & Physical Date & Time of Service: Feb 06, 2018 at 18:17 Chief Complaint: Chronic Pancreatitis Primary Care Physician: No Doctor, Assigned History of Present Illness Source: patient Ms. Knowles was first diagnosed with pancreatitis about 5 years ago and has had about 12 flare ups since then. She started having pain yesterday and kept herself NPO which sometimes is enough to mitigate the flare, but she continued to have pain today and so presented to the ED. No vomiting, no nausea. No change in bowels, no blood in stools. She has had stents in the past for a short time period which helped. She has not been under any treatment recently. Her chronic pancreatitis is not familial and autoimmune workups have not yielded any positive results. She does have burning, stabbing pain upper middle abdomen. She has a history of cholecystectomy, ski accident with TBI 2008, fibromyalgia, adhd, c.diff ROS Constitutional: no chills, aches, sweats or fever Respiratory: no sob,cough, sputum, or wheezing Cardiac: no chest pain, palpitations, edema, orthopnea or lightheadedness GI: see HPI : no dysuria or hesitancy Extremities: no joint pain or weakness Skin: no rash All other systems reviewed and negative Past Medical/Surgical History Medical Problems: (1) Abdominal pain (2) Abdominal pain (3) Abdominal pain (4) Abdominal pain (5) Acute pancreatitis (6) ADHD (attention deficit hyperactivity disorder) (7) Anxiety (8) Brain bleed (9) Chronic pancreatitis (10) Contusion of right foot (11) Epigastric abdominal pain (12) Epigastric abdominal pain (13) Erosive esophagitis (14) Erosive esophagitis (15) ICH (intracerebral hemorrhage) (16) Intractable abdominal pain (17) Pancreatitis (18) Pancreatitis (19) Right foot strain (20) Right foot strain (21) Sprain of knee (22) Sprain of knee (23) Ulcerative colitis Surgical Problems: (1) History of cholecystectomy (2) History of colonoscopy (3) History of wisdom tooth extraction Family History Cancer Diabetes mellitus Heart disease Hypertension Father and mother have no chronic medical issues. Social History Smoking Status: Never Smoker Smokeless Tobacco Use: No Alcohol Use: none Drug Use: none Marital Status: single Housing status: lives with significant other Occupational Status: employed Immunizations History of Influenza Vaccine: No History of Tetanus Vaccine?: Unknown History of Pneumococcal: No History of Hepatitis B Vaccine: Unknown Allergies Coded Allergies: Sulfa Antibiotics (Verified Allergy, Intermediate, HIVES, 02/13/17) Cephalexin (Verified Allergy, Unknown, UNKNOWN, 02/13/17) Moxifloxacin (Unverified Allergy, Unknown, adverse reaction, 02/06/18) patient had cdiff following moxifloxacin regimen, not a true allergy Penicillins (Verified Allergy, Unknown, HIVES, 02/13/17) Morphine (Verified Adverse Reaction, Intermediate, INCREASED PAIN, 02/13/17 ) Home Medications Scheduled Levonorgestrel (Iud) (Juliana), 113.5 MG INT UTER UD Physical Exam Vital Signs Date Time Temp Pulse Resp B/P (MAP) Pulse Ox O2 Delivery O2 Flow Rate FiO2 02/06/18 17:31 114/73 02/06/18 17:30 69 19 99 Room Air 02/06/18 17:03 80 20 118/66 96 Room Air 02/06/18 16:21 66 12 119/65 98 Room Air 02/06/18 16:21 68 02/06/18 16:10 66 20 131/81 99 Room Air 02/06/18 15:12 36.9 101 18 133/91 98 Room Air General: no distress Eyes: normal inspection, PERLL Respiratory: chest non tender, clear to auscultation, normal breath sounds, no respiratory distress, no accessory muscle use Cardiac: regular rate and rhythm, no rub or gallop, no murmur, no edema, no jvd GI/: active bowel sounds, tender upper middle abdomen to palpation, soft, non distended Extremities: normal range of motion, normal strength, non tender Neuro/Psych: alert and oriented x 3, normal mood and affect Skin: normal color, dry Diagnostics Laboratory Results Results Past 24 Hours Test 02/06/18 15:50 Range/Units White Blood Count 6.94 4.8-10.8 K/uL Red Blood Count 4.73 4.2-5.4 M/uL Hemoglobin 14.6 12.0-16.0 g/dL Hematocrit 41.5 37-47 % Mean Corpuscular Volume 87.7 80-100 fL Mean Corpuscular Hemoglobin 30.9 25-34 pg Mean Corpuscular Hemoglobin Concent 35.2 32-36 g/dl Platelet Count 233 130-400 K/uL Mean Platelet Volume 9.6 7.4-10.4 fL Neutrophils (%) (Auto) 64.5 % Lymphocytes (%) (Auto) 21.2 % Monocytes (%) (Auto) 12.8 % Eosinophils (%) (Auto) 1.3 % Basophils (%) (Auto) 0.1 % Neutrophils # (Auto) 4.47 1.4-6.5 K/uL Lymphocytes # (Auto) 1.47 1.2-3.4 K/uL Monocytes # (Auto) 0.89 0.11-0.59 K/uL Eosinophils # (Auto) 0.09 0-0.5 K/uL Basophils # (Auto) 0.01 0-0.2 K/uL RDW Standard Deviation 41.5 36.4-46.3 fL RDW Coefficient of Variation 12.9 11.5-14.5 % Immature Granulocyte % (Auto) 0.1 % Immature Granulocyte # (Auto) 0.01 0.00-0.02 K/uL Sodium Level 136 136-145 mmol/L Potassium Level 3.8 3.5-5.1 mmol/L Chloride Level 105 98-107 mmol/L Carbon Dioxide Level 26 21-32 mmol/L Anion Gap 5.0 3-11 mmol/L Blood Urea Nitrogen 14 7-18 mg/dl Creatinine 0.93 0.60-1.20 mg/dl Est Creatinine Clear Calc Drug Dose 90.7 ml/min Estimated GFR () 99.7 Estimated GFR (Non- 86.0 BUN/Creatinine Ratio 15.5 10-20 Random Glucose 106 70-99 mg/dl Calcium Level 9.1 8.5-10.1 mg/dl Total Bilirubin 1.0 0.2-1 mg/dl Direct Bilirubin 0.2 0-0.2 mg/dl Aspartate Amino Transf (AST/SGOT) 14 15-37 U/L Alanine Aminotransferase (ALT/SGPT) 25 12-78 U/L Alkaline Phosphatase 91 45-117 U/L Total Protein 7.8 6.4-8.2 gm/dl Albumin 3.9 3.4-5.0 gm/dl Lipase 952 73-393 U/L Diagnostic Radiology ABDOMINAL ULTRASOUND, RIGHT UPPER QUADRANT HISTORY: Epigastric pain. eval obstructing stone, pancreatitis. COMPARISON: Abdominal sound 02/13/2017. FINDINGS: Pancreas: Heterogeneous appearance of the pancreas, unchanged. No hepatic masses or peripancreatic fluid collections. Liver: Unremarkable. Gallbladder: The gallbladder is surgically absent. CBD: 6 mm. Right kidney: No hydronephrosis. IMPRESSION: No change compared to the prior study. No significant abnormality within the right upper quadrant. Impression Assessment and Plan Ms. Knowles is a 22 year old woman here for chronic pancreatitis Chronic pancreatitis - admit obs med surg - LR @ 150 ml/hr, zofran, dilaudid, protonix - NPO x chips and sips - cbc, prp am - if no improvement in the morning, may want to consult GI Full code SCDs PA Physician Supervision Note: I interviewed and examined the patient. Discussed with Bhavya WEI and agree with findings and plan as documented in the note. Any exceptions or clarifications are listed here: None This pt has a history of chronic pancreatitis, presents with acute central abdominal pain, elevated lipase, anorexia but no vomiting vitals are stable car is regular, lungs are clear, abd is with normal bowel sounds, soft and mild guarding will observe with bowel rest, LR antiemetics and pain control Documented By: Sharan Cowan Advanced Directives Existing Advance Directive: No Existing Living Will: No Existing Power of Jewel Bearing Facer: No Existing Health Care Proxy: No Resuscitation Status full code VTE Prophylaxis Will order VTE Prophylaxis: Yes
[2018-02-06 19:35] VITALS: Ht 170.2 cm; Wt 64.5 kg
[2018-02-06] MEDS: ONDANSETRON INJ 2 MG/ML 2 ML VIAL IV PRN (20:02)
[2018-02-06] MEDS: LACTATED RINGER'S 1000ML 1,000 ML IV SCH (20:29)
[2018-02-06] MEDS: HYDROmorphone INJ 2 MG/ML SYR/VIAL IV PRN (20:31)
[2018-02-06 20:39] VITALS: BP 117/74; PULSE 85; TEMP 36.6; O2SAT 97
[2018-02-06] MEDS ORDERED: LEVO1IUD INT UTER (20:58)
[2018-02-06] MEDS ORDERED: IV FLUIDS COMPLETED PRN (21:00)
[2018-02-06] MEDS: PANTOprazole INJ 40 MG in SYRINGE 0 ML IV SCH (21:19)
[2018-02-06 23:21] VITALS: BP 105/68; PULSE 68; TEMP 36.8; O2SAT 99
[2018-02-06] MEDS ORDERED: ONDANSETRON 2MG ODT PO STA (23:49)
[2018-02-07] MEDS: HYDROmorphone INJ 2 MG/ML SYR/VIAL IV PRN ×5 (00:08→22:17)
[2018-02-07] MEDS: LACTATED RINGER'S 1000ML 1,000 ML IV SCH ×4 (03:51→22:22)
[2018-02-07] MEDS: ONDANSETRON INJ 2 MG/ML 2 ML VIAL IV PRN ×2 (04:25→13:32)
[2018-02-07 06:07] LABS: HEMATOCRIT 36.2 % (37-47); HEMOGLOBIN 12.5 g/dL (12.0-16.0); MEAN CELL VOLUME 88.1 fL (80-100); MEAN CORPUSCULAR HEMOGLOBIN 30.4 pg (25-34); MEAN CORPUSCULAR HGB CONC 34.5 g/dl (32-36); MEAN PLATELET VOLUME 9.4 fL (7.4-10.4); PLATELET COUNT 182 K/uL (130-400); RED CELL DISTRIBUTION WIDTH CV 12.7 % (11.5-14.5)
[2018-02-07 06:47] LABS: CALCIUM 8.2 mg/dl (8.5-10.1); CREATININE 0.67 mg/dl (0.60-1.20); POTASSIUM 3.8 mmol/L (3.5-5.1)
[2018-02-07 07:08] VITALS: BP 95/61; PULSE 79; TEMP 37.1; O2SAT 97
[2018-02-07] MEDS: PANTOprazole INJ 40 MG in SYRINGE 0 ML IV SCH ×2 (08:08→20:23)
[2018-02-07] MEDS: PROCHLORPERAZINE INJ 5 MG in SYRINGE 4 ML IV PRN ×2 (08:28→17:18)
[2018-02-07 08:40] VITALS: O2SAT 97
--- NOTE | 2018-02-07 10:53 | Hospitalist Progress Note ---
Hospitalist Progress Note Date of Service Feb 07, 2018. (Bryce Brandt CRNP) Subjective Pt evaluation today including: conversation w/ patient, physical exam, chart review, lab review, review of studies, review of inpatient medication list Pain: abdominal pain continues - dilaudid helps for about 3 hours PO Intake: npo x ice chips Voiding: no voiding problems still continues with abdominal pain - typical flares in the past have lasted from two to seven days - not really even taking ice chips (Bryce Brandt CRNP) Medications reviewed inpatient medications (Bryce Brandt CRNP) Objective Vital Signs Date Time Temp Pulse Resp B/P (MAP) Pulse Ox O2 Delivery O2 Flow Rate FiO2 02/07/18 08:40 97 Room Air 02/07/18 07:08 37.1 79 15 95/61 (72) 97 02/07/18 00:00 Room Air 02/06/18 23:21 36.8 68 18 105/68 (80) 99 Room Air 02/06/18 20:39 36.6 85 18 117/74 (88) 97 Room Air 02/06/18 19:57 86 14 119/74 99 02/06/18 19:35 Room Air 02/06/18 19:30 72 19 114/79 99 Room Air 02/06/18 19:01 106/59 02/06/18 19:00 70 16 99 Room Air 02/06/18 18:30 69 20 120/76 99 Room Air 02/06/18 18:00 63 13 107/69 100 Room Air 02/06/18 17:31 114/73 02/06/18 17:30 69 19 99 Room Air 02/06/18 17:03 80 20 118/66 96 Room Air 02/06/18 16:21 66 12 119/65 98 Room Air 02/06/18 16:21 68 02/06/18 16:10 66 20 131/81 99 Room Air 02/06/18 15:12 36.9 101 18 133/91 98 Room Air (Bryce Brandt CRNP) Physical Exam General Appearance: WD/WN, no apparent distress Eyes: normal inspection, EOMI ENT: pharynx normal Neck: supple, no adenopathy Respiratory/Chest: chest non-tender, lungs clear, normal breath sounds Cardiovascular: regular rate, rhythm, no edema, no murmur Abdomen: normal bowel sounds, soft, + tenderness Extremities: normal inspection, no pedal edema Neurologic/Psychiatric: alert, normal mood/affect, oriented x 3 Skin: normal color, warm/dry, no rash (Bryce Brandt ., INVESTMENT REPRESENTATIVE) Laboratory Results Last 24 Hours Test 02/06/18 15:50 02/06/18 19:19 02/07/18 05:38 White Blood Count 6.94 K/uL 6.10 K/uL Red Blood Count 4.73 M/uL 4.11 M/uL Hemoglobin 14.6 g/dL 12.5 g/dL Hematocrit 41.5 % 36.2 % Mean Corpuscular Volume 87.7 fL 88.1 fL Mean Corpuscular Hemoglobin 30.9 pg 30.4 pg Mean Corpuscular Hemoglobin Concent 35.2 g/dl 34.5 g/dl Platelet Count 233 K/uL 182 K/uL Mean Platelet Volume 9.6 fL 9.4 fL Neutrophils (%) (Auto) 64.5 % Lymphocytes (%) (Auto) 21.2 % Monocytes (%) (Auto) 12.8 % Eosinophils (%) (Auto) 1.3 % Basophils (%) (Auto) 0.1 % Neutrophils # (Auto) 4.47 K/uL Lymphocytes # (Auto) 1.47 K/uL Monocytes # (Auto) 0.89 K/uL Eosinophils # (Auto) 0.09 K/uL Basophils # (Auto) 0.01 K/uL RDW Standard Deviation 41.5 fL 41.0 fL RDW Coefficient of Variation 12.9 % 12.7 % Immature Granulocyte % (Auto) 0.1 % Immature Granulocyte # (Auto) 0.01 K/uL Sodium Level 136 mmol/L 135 mmol/L Potassium Level 3.8 mmol/L 3.8 mmol/L Chloride Level 105 mmol/L 105 mmol/L Carbon Dioxide Level 26 mmol/L 24 mmol/L Anion Gap 5.0 mmol/L 6.0 mmol/L Blood Urea Nitrogen 14 mg/dl 8 mg/dl Creatinine 0.93 mg/dl 0.67 mg/dl Est Creatinine Clear Calc Drug Dose 90.7 ml/min 125.9 ml/min Estimated GFR () 99.7 142.6 Estimated GFR (Non- 86.0 123.0 BUN/Creatinine Ratio 15.5 12.4 Random Glucose 106 mg/dl 120 mg/dl Calcium Level 9.1 mg/dl 8.2 mg/dl Total Bilirubin 1.0 mg/dl Direct Bilirubin 0.2 mg/dl Aspartate Amino Transf (AST/SGOT) 14 U/L Alanine Aminotransferase (ALT/SGPT) 25 U/L Alkaline Phosphatase 91 U/L Total Protein 7.8 gm/dl Albumin 3.9 gm/dl Lipase 952 U/L 673 U/L (Bryce Brandt CRNP) Assessment and Plan 1. Acute on Chronic pancreatitis - pain continues- continue dilaudid - lipase from 952 to 678 - cont LR @ 150 ml/hr, - NPO x chips and sips - has had extensive work-up at [facility]. Has had stents placed in the past that have been removed. - idiopathic 2. disposition - will repeat lipase in AM - cont fluids and pain control. will not advance diet until lipase improves and pain controlled. Continued [facility] stay due to: inadequate po fluid intake, multiple IV medications needed Discharge planning: home (Bryce Brandt CRNP) ERIBERTO Physician Supervision Note: I interviewed and examined the patient. Discussed with Corey WEI and agree with findings and plan as documented in the note. Any exceptions or clarifications are listed here: None This pt is slightly improved, she is tolerating chips and sips and willing to advance 37.1 79 15 95/61 abd is soft and non tender except to deep palpation, no masses pancreatitis is resolving by numbers, advance diet Documented By: Sharan Cowan (Sharan Cowan M.D.)
[2018-02-07 14:44] VITALS: BP 90/54; PULSE 59; TEMP 37.2; O2SAT 97
[2018-02-07] MEDS ORDERED: LORAZEPAM 2 MG/ML 1 ML VIAL IV PRN (21:15)
[2018-02-07] MEDS ORDERED: ZOLPIDEM TARTRATE 5 MG TAB PO PRN ×2 (21:15→21:30)
[2018-02-07 22:59] VITALS: BP 108/68; PULSE 67; TEMP 36.9; O2SAT 98
[2018-02-08] MEDS: HYDROmorphone INJ 2 MG/ML SYR/VIAL IV PRN ×2 (02:05→06:14)
[2018-02-08] MEDS: PROCHLORPERAZINE INJ 5 MG in SYRINGE 4 ML IV PRN (03:35)
[2018-02-08] MEDS: LACTATED RINGER'S 1000ML 1,000 ML IV SCH (06:01)
[2018-02-08 06:08] LABS: HEMATOCRIT 37.6 % (37-47); HEMOGLOBIN 12.9 g/dL (12.0-16.0); MEAN CELL VOLUME 88.3 fL (80-100); MEAN CORPUSCULAR HEMOGLOBIN 30.3 pg (25-34); MEAN CORPUSCULAR HGB CONC 34.3 g/dl (32-36); MEAN PLATELET VOLUME 9.4 fL (7.4-10.4); PLATELET COUNT 195 K/uL (130-400); RED CELL DISTRIBUTION WIDTH CV 12.8 % (11.5-14.5); WHITE BLOOD COUNT 4.84 K/uL (4.8-10.8)
[2018-02-08 06:45] LABS: CALCIUM 8.6 mg/dl (8.5-10.1); CREATININE 0.82 mg/dl (0.60-1.20); POTASSIUM 3.6 mmol/L (3.5-5.1)
[2018-02-08 07:11] VITALS: BP 100/62; PULSE 85; TEMP 37.2; O2SAT 97
[2018-02-08 08:00] VITALS: O2SAT 97
[2018-02-08] MEDS: PANTOprazole INJ 40 MG in SYRINGE 0 ML IV SCH (08:05)
--- NOTE | 2018-02-08 13:33 | Discharge Instructions ---
Discharge Instructions Date of Service Feb 08, 2018. Admission Reason for Admission: Pancreatitis Discharge Discharge Diagnosis / Problem: acute on chronic pancreatitis Discharge Goals Goal(s): Decrease discomfort, Improve disease control, Improve nutritional status Activity Recommendations Activity Limitations: resume your previous activity Lifting Limitations: gradually increase as tolerated Exercise/Sports Limitations: as tolerated May Resume Sexual Activity: when tolerated Shower/Bathe: no limitations Driving or Machine Use: no limitations . Instructions / Follow-Up Instructions / Follow-Up Does not have a PCP in the [place] Follows with Dr. Manas Vee at [facility]. She missed an appointment when she was here. She will call to schedule with him. Treated for Acute on Chronic pancreatitis - lipase from 952 to 678 to 188 today Current Hospital Diet Patient's current hospital diet: Regular Diet - may decrease to clear liquids if pain returns or nausea develops Discharge Diet Recommended Diet: Regular Diet Pending Studies Studies pending at discharge: no Laboratory Results Last 24 Hours Test 02/08/18 05:30 White Blood Count 4.84 K/uL Red Blood Count 4.26 M/uL Hemoglobin 12.9 g/dL Hematocrit 37.6 % Mean Corpuscular Volume 88.3 fL Mean Corpuscular Hemoglobin 30.3 pg Mean Corpuscular Hemoglobin Concent 34.3 g/dl RDW Standard Deviation 41.0 fL RDW Coefficient of Variation 12.8 % Platelet Count 195 K/uL Mean Platelet Volume 9.4 fL Sodium Level 139 mmol/L Potassium Level 3.6 mmol/L Chloride Level 106 mmol/L Carbon Dioxide Level 28 mmol/L Anion Gap 5.0 mmol/L Blood Urea Nitrogen 5 mg/dl Creatinine 0.82 mg/dl Est Creatinine Clear Calc Drug Dose 102.9 ml/min Estimated GFR () 116.1 Estimated GFR (Non- 100.2 BUN/Creatinine Ratio 6.6 Random Glucose 88 mg/dl Calcium Level 8.6 mg/dl Lipase 188 U/L Last Resulted CBC 02/08/18 05:30 Last Resulted BMP 02/08/18 05:30 Work Instructions Return To Work: 2 days Lifting Limitations: none Medical Emergencies . Who to Call and When: Medical Emergencies: If at any time you feel your situation is an emergency, please call 911 immediately. . Non-Emergent Contact Non-Emergency issues call your: Specialist (Dr. Manas Vee or see one of the urgent care centers in [place] [facility]) Call Non-Emergent contact if: you have a fever, your pain is not controlled, your pain is worsening, your pain is unusual for you, you have any medication questions . . "Provider Documentation" section prepared by Bryce Brandt. .
[2018-02-08] MEDS ORDERED: OXYC-57 PO (13:38)
[2018-02-08] MEDS ORDERED: ONDA4TAB46 PO (13:38)
--- NOTE | 2018-02-08 13:43 | Hospitalist Progress Note ---
Hospitalist Progress Note Date of Service Feb 08, 2018. (Bryce Brandt CRNP) Subjective Pt evaluation today including: conversation w/ patient, physical exam, chart review, lab review, review of studies, review of inpatient medication list Pain: pain much better today - still there but tolerable - no pain meds in 6h PO Intake: tolerated regular lunch Voiding: no voiding problems notes pain much better today - tolerating regular food with no nausea Constitutional: No see HPI, No fever, No chills, No sweats, No weight loss, No weakness, No fatigue, No problem reported Eyes: No see HPI, No worsening of vision, No eye pain, No redness, No discharge, No diplopia, No problem reported ENT: No see HPI, No hearing loss, No unusual epistaxis, No nasal symptoms, No sore throat, No tinnitus, No dental problems, No trouble swallowing, No problem reported Respiratory: No see HPI, No cough, No sputum, No wheezing, No shortness of breath, No dyspnea on exertion, No dyspnea at rest, No hemoptysis, No problem reported Cardiovascular: No see HPI, No chest pain, No orthopnea, No PND, No edema, No claudication, No palpitations, No problem reported Breast: No see HPI, No breast lump, No change in shape, No nipple discharge , No breast pain, No problem reported Abdomen: + pain, + nausea Musculoskeletal: No see HPI, No joint pain, No muscle pain, No swelling, No calf pain, No problem reported Female : No see HPI, No dysuria, No urinary frequency, No hematuria, No incontinence, No abnormal vaginal bleeding, No vaginal discharge, No problem reported Neurologic: No see HPI, No memory loss, No paralysis, No weakness, No numbness/tingling, No vertigo, No balance problems, No problem reported Psychiatric: No see HPI, No depression symptoms, No anhedonism, No anxiety, No insomnia, No substance abuse, No problem reported (Bryce Brandt CRNP) Medications reviewed (Bryce Brandt CRNP) Objective Vital Signs Date Time Temp Pulse Resp B/P (MAP) Pulse Ox O2 Delivery O2 Flow Rate FiO2 02/08/18 08:00 97 Room Air 02/08/18 07:11 37.2 85 18 100/62 (75) 97 Room Air 02/08/18 00:11 Room Air 02/07/18 22:59 36.9 67 18 108/68 (81) 98 Room Air 02/07/18 20:12 Room Air 02/07/18 16:30 Room Air 02/07/18 14:44 37.2 59 15 90/54 (66) 97 (Bryce Brandt CRNP) Physical Exam General Appearance: WD/WN, no apparent distress Eyes: normal inspection ENT: hearing grossly normal Neck: no JVD Respiratory/Chest: chest non-tender, lungs clear, normal breath sounds Cardiovascular: regular rate, rhythm, no JVD, no murmur Abdomen: normal bowel sounds, soft, + tenderness (mild) Extremities: normal range of motion, normal inspection, no pedal edema Neurologic/Psychiatric: alert, normal mood/affect, oriented x 3 Skin: normal color, warm/dry, no rash (Bryce Brandt, ERIBERTO) Laboratory Results Last 24 Hours Test 02/08/18 05:30 White Blood Count 4.84 K/uL Red Blood Count 4.26 M/uL Hemoglobin 12.9 g/dL Hematocrit 37.6 % Mean Corpuscular Volume 88.3 fL Mean Corpuscular Hemoglobin 30.3 pg Mean Corpuscular Hemoglobin Concent 34.3 g/dl RDW Standard Deviation 41.0 fL RDW Coefficient of Variation 12.8 % Platelet Count 195 K/uL Mean Platelet Volume 9.4 fL Sodium Level 139 mmol/L Potassium Level 3.6 mmol/L Chloride Level 106 mmol/L Carbon Dioxide Level 28 mmol/L Anion Gap 5.0 mmol/L Blood Urea Nitrogen 5 mg/dl Creatinine 0.82 mg/dl Est Creatinine Clear Calc Drug Dose 102.9 ml/min Estimated GFR () 116.1 Estimated GFR (Non- 100.2 BUN/Creatinine Ratio 6.6 Random Glucose 88 mg/dl Calcium Level 8.6 mg/dl Lipase 188 U/L (Bryce Brandt, ERIBERTO) Assessment and Plan 1. Acute on Chronic pancreatitis - pain much better today - no dilaudid for 8 hours - lipase from 952 to 678 to 188 today - diet advanced, tolerating regular food with no increased pain or nausea. - has had extensive work-up at [place]. Has had stents placed in the past that have been removed. - follows with Dr. Manas Vee at the digestive clinic at [facility] and she will follow up with him. Missed an appointment with him yesterday. - discharge home. Discharge planning: home (Bryce Brandt ., ERIBERTO) ERIBERTO Physician Supervision Note: I interviewed and examined the patient. Discussed with Bryce WEI and agree with findings and plan as documented in the note. Any exceptions or clarifications are listed here: None this pt is doing well, and has been able to tolerate diet and has normalized lipase vitals are stable abd is soft discharge to home follow up [facility] Documented By: Sharan Cowan (Sharan Cowan M.D.)
[2018-02-08 13:46] VITALS: BP 100/62; PULSE 85; TEMP 37.2; O2SAT 97
== END 2018-02-08 14:18 | disposition home or self-care (01) | DRG 440 ==
LOC: C.EDB 15:12 → C.4E 18:31 → ENRESERV 19:31 → OBSVTOIN 02-07 14:05
PROVIDERS: ADMIT Internal Medicine; ATTEND Internal Medicine
DX: K85.90 Acute pancreatitis without necrosis or infection, unspecified (principal); K86.1 Other chronic pancreatitis; F90.9 Attention-deficit hyperactivity disorder, unspecified type; F41.9 Anxiety disorder, unspecified; Z88.0 Allergy status to penicillin; Z88.2 Allergy status to sulfonamides; Z88.8 Allergy status to other drugs, medicaments and biological substances; Z90.49 Acquired absence of other specified parts of digestive tract; Z87.820 Personal history of traumatic brain injury; Z82.49 Family history of ischemic heart disease and other diseases of the circulatory system; Z83.3 Family history of diabetes mellitus; Z80.9 Family history of malignant neoplasm, unspecified

== ENCOUNTER 2018-02-11 13:43 | Emergency (ER) | payer BC, OTHER ==
[~2018-02-11] VITALS: Ht 170.2 cm; Wt 62.0 kg
[~2018-02-11 13:43] MED LIST changes: -AMPH30CA3 PO; -AMPH5CAP PO; +LEVO1IUD INT UTER; +ONDA4TAB46 PO; +OXYC-57 PO; -SERT50TA PO; -TRAZ50TA35 PO; -[UNRECOGNIZED DRUG - CODE] PO
[2018-02-11 13:45] VITALS: TEMP 36.9; Ht 170.2 cm; Wt 62.0 kg
[2018-02-11] MEDS ORDERED: SODIUM CHLORIDE 0.9% 1000ML 1,000 ML IV STA (14:05)
[2018-02-11] MEDS ORDERED: METOCLOPRAMIDE HCL INJ 5 MG/ML 2 ML VIAL IV STA (14:05)
[2018-02-11] MEDS ORDERED: KETOROLAC TROMETHAMINE 30 MG/ML VIAL IV STA (14:05)
[2018-02-11] MEDS ORDERED: HYDROmorphone INJ 0.5 MG/0.5 ML SYR IV STA ×2 (14:05→15:12)
--- NOTE | 2018-02-11 14:08 | EMERGENCY ROOM VISIT NOTE ---
History Report prepared by Nickolas: Paul Brooks Under the Supervision of: Dr. Berry Olivera M.D. First contact with patient: 13:52 Chief Complaint: ABDOMINAL PAIN Stated Complaint: CHRONIC PANCREATITIS,PT WAS AN INPATIENT THIS WEEK Nursing Triage Summary: pt has chronic pancreatitis was dc on from hospital and has epigastric pain with nausea and has been getting worse decreased po intake c/o constipation History of Present Illness The patient is a 22 year old female with a history of chronic pancreatitis who presents to the Emergency Room with complaints of worsening abdominal pain over the past few days. She states that she was hospitalized here last week for pancreatitis, and was discharged 3 days ago. The patient says that she was still having pain, but she was given pain medications to go home with and she was eating normal foods at the time. She notes that ever since then, she has still been unable to eat well, and she has been "super nauseous". The patient has been having episodes of vomiting as well. She notes that she has been constipated, and has not had a bowel movement in a couple days. The patient adds that her pain medications are not working anymore, and she has abdominal pain shooting around to her back. She states that when she tried to eat dinner last night, she could only take 3 bites. Source of History: patient Onset: Over past few days Position: abdomen Quality: other (pain) Timing: worsening Associated Symptoms: + nausea, + vomiting, + back pain Note: Decreased PO intake. Constipation. Review of Systems See HPI for pertinent positives & negatives. A total of 10 systems reviewed and were otherwise negative. Past Medical & Surgical Medical Problems: (1) Acute pancreatitis (2) ADHD (attention deficit hyperactivity disorder) (3) Anxiety (4) Brain bleed (5) ICH (intracerebral hemorrhage) (6) Pancreatitis (7) Ulcerative colitis Surgical Problems: (1) History of cholecystectomy (2) History of colonoscopy (3) History of wisdom tooth extraction Family History Cancer Diabetes mellitus Heart disease Hypertension Social History Smoking Status: Never Smoker Alcohol Use: none Drug Use: none Marital Status: single Housing Status: lives with roommate Occupation Status: employed Current/Historical Medications Scheduled Acetaminophen (Tylenol), 650 MG PO UD Docusate Sodium (Colace), 1 CAP PO BID Levonorgestrel (Iud) (Juliana), 113.5 MG INT UTER UD Sennosides (Senokot), 8.6 MG PO HS Scheduled PRN Ondansetron Hcl (Zofran), 4 MG PO Q6H PRN for Nausea Oxycodone/Acetaminophen 5MG/325MG (Percocet 5MG/325MG), 1 TABLET PO Q4H PRN for Pain Oxycodone/Acetaminophen 5MG/325MG (Percocet 5MG/325MG), 1-2 TAB PO Q4H PRN for Pain Allergies Coded Allergies: Sulfa Antibiotics (Verified Allergy, Intermediate, HIVES, 02/11/18) Cephalexin (Verified Allergy, Unknown, UNKNOWN, 02/11/18) Moxifloxacin (Unverified Allergy, Unknown, adverse reaction, 02/11/18) patient had cdiff following moxifloxacin regimen, not a true allergy Penicillins (Verified Allergy, Unknown, HIVES, 02/11/18) Morphine (Verified Adverse Reaction, Intermediate, INCREASED PAIN, 02/11/18) Physical Exam Vital Signs Date Time Temp Pulse Resp B/P (MAP) Pulse Ox O2 Delivery O2 Flow Rate FiO2 02/11/18 17:45 69 129/73 98 Room Air 02/11/18 16:13 59 113/70 99 Room Air 02/11/18 14:34 71 17 139/79 97 Room Air 02/11/18 14:28 69 02/11/18 13:45 36.9 74 16 140/86 98 Physical Exam GENERAL: Awake, alert, well-appearing, in no acute distress HENT: Normocephalic, atraumatic. Oropharynx unremarkable. EYES: Normal conjunctiva. Sclera non-icteric. NECK: Supple. No nuchal rigidity. FROM. No JVD. RESPIRATORY: Clear to auscultation. CARDIAC: Regular rate, normal rhythm. Extremities warm and well perfused. Pulses equal. ABDOMEN: Soft, non-distended. No tenderness to palpation. No rebound or guarding. No masses. RECTAL: Deferred. MUSCULOSKELETAL: Chest examination reveals no tenderness. The back is symmetrical on inspection without obvious abnormality. There is no CVA tenderness to palpation. No joint edema. LOWER EXTREMITIES: Calves are equal size bilaterally and non-tender. No edema. No discoloration. NEURO: Normal sensorium. No sensory or motor deficits noted. SKIN: No rash or jaundice noted. Medical Decision & Procedures ER Provider Diagnostic Interpretation: CT results as stated below per my review and radiologist interpretation: CT ABD/PELVIS IV AND ORAL CONT CLINICAL HISTORY: Diffuse abdominal pain. History of pancreatitis. COMPARISON STUDY: 10/18/2015 TECHNIQUE: Following the IV administration of 117 mL of Optiray-320, CT scan of the abdomen and pelvis was performed from the lung bases to the proximal femurs. Images are reviewed in the axial, sagittal, and coronal planes. IV contrast was administered without complication. A dose lowering technique was utilized adhering to the principles of ALARA. CT DOSE: 264.37 mGy.cm FINDINGS: Lower chest: The heart is normal in size and configuration, without pericardial effusion. The lung bases and pleural spaces are clear. Liver: The contrast-enhanced liver is normal in size, contour, and attenuation. There is no intrahepatic biliary ductal dilatation. The hepatic veins and portal veins are patent. Gallbladder: Surgically absent Spleen: Normal in size and attenuation. Pancreas: No pancreatic masses are visualized. There are few pancreatic calcifications. There is mild infiltration of peripancreatic and periduodenal fat. The findings may be secondary to pancreatitis and correlation with appropriate enzymes is recommended. There is no significant ductal dilatation. Adrenal glands: Unremarkable. Kidneys: There is symmetric renal cortical enhancement. The kidneys are normal in size without hydronephrosis. Bowel: There are no transition zones indicate bowel obstruction. There is no acute diverticulitis. There are no findings to indicate acute appendicitis. Peritoneum: There is trace free pelvic fluid likely physiologic. There is no free intraperitoneal air. Vasculature: The abdominal aorta is normal in course and caliber. Adenopathy: None. Pelvic viscera: An IUD is visualized. Skeletal structures: No destructive osseous lesions are seen. IMPRESSION: 1. No evidence of bowel obstruction. No evidence of free air 2. Normal appendix. No evidence of acute diverticulitis 3. Infiltration of the peripancreatic and periduodenal fat. The findings may indicate acute pancreatitis. Correlation with appropriate biochemical markers is recommended. Electronically signed by: Yunior Villarreal M.D. 02/11/2018 5:12 PM Dictated Date/Time: 02/11/2018 5:07 PM Laboratory Results 02/11/18 14:25 Red Blood Count 4.86, Mean Corpuscular Volume 87.4, Mean Corpuscular Hemoglobin 30.5, Mean Corpuscular Hemoglobin Concent 34.8, Mean Platelet Volume 9.4, Neutrophils (%) (Auto) 78.4, Lymphocytes (%) (Auto) 12.4, Monocytes (%) (Auto) 8.2, Eosinophils (%) (Auto) 0.7, Basophils (%) (Auto) 0.2, Neutrophils # (Auto) 7.20, Lymphocytes # (Auto) 1.14, Monocytes # (Auto) 0.75, Eosinophils # (Auto) 0.06, Basophils # (Auto) 0.02 02/11/18 14:25 Test 02/11/18 14:08 02/11/18 14:25 Urine Color YELLOW Urine Appearance CLEAR (CLEAR) Urine pH 6.5 (4.5-7.5) Urine Specific [place] 1.006 (1.000-1.030) Urine Protein NEG (NEG) Urine Glucose (UA) NEG (NEG) Urine Ketones NEG (NEG) Urine Occult Blood TRACE (NEG) Urine Nitrite NEG (NEG) Urine Bilirubin NEG (NEG) Urine Urobilinogen NEG (NEG) Urine Leukocyte Esterase NEG (NEG) Urine WBC (Auto) 1-5 /hpf (0-5) Urine RBC (Auto) 0-4 /hpf (0-4) Urine Hyaline Casts (Auto) 1-5 /lpf (0-5) Urine Epithelial Cells (Auto) 20-30 /lpf (0-5) Urine Bacteria (Auto) NEG (NEG) Urine Test NEG (NEG) White Blood Count 9.18 K/uL (4.8-10.8) Red Blood Count 4.86 M/uL (4.2-5.4) Hemoglobin 14.8 g/dL (12.0-16.0) Hematocrit 42.5 % (37-47) Mean Corpuscular Volume 87.4 fL (80-100) Mean Corpuscular Hemoglobin 30.5 pg (25-34) Mean Corpuscular Hemoglobin Concent 34.8 g/dl (32-36) Platelet Count 261 K/uL (130-400) Mean Platelet Volume 9.4 fL (7.4-10.4) Neutrophils (%) (Auto) 78.4 % Lymphocytes (%) (Auto) 12.4 % Monocytes (%) (Auto) 8.2 % Eosinophils (%) (Auto) 0.7 % Basophils (%) (Auto) 0.2 % Neutrophils # (Auto) 7.20 K/uL (1.4-6.5) Lymphocytes # (Auto) 1.14 K/uL (1.2-3.4) Monocytes # (Auto) 0.75 K/uL (0.11-0.59) Eosinophils # (Auto) 0.06 K/uL (0-0.5) Basophils # (Auto) 0.02 K/uL (0-0.2) RDW Standard Deviation 40.3 fL (36.4-46.3) RDW Coefficient of Variation 12.6 % (11.5-14.5) Immature Granulocyte % (Auto) 0.1 % Immature Granulocyte # (Auto) 0.01 K/uL (0.00-0.02) Anion Gap 8.0 mmol/L (3-11) Est Creatinine Clear Calc Drug Dose 84.4 ml/min Estimated GFR () 91.3 Estimated GFR (Non- 78.8 BUN/Creatinine Ratio 9.7 (10-20) Calcium Level 9.3 mg/dl (8.5-10.1) Total Bilirubin 1.0 mg/dl (0.2-1) Direct Bilirubin 0.2 mg/dl (0-0.2) Aspartate Amino Transf (AST/SGOT) 18 U/L (15-37) Alanine Aminotransferase (ALT/SGPT) 25 U/L (12-78) Alkaline Phosphatase 85 U/L (45-117) Total Protein 8.2 gm/dl (6.4-8.2) Albumin 4.1 gm/dl (3.4-5.0) Lipase 146 U/L (73-393) Labs reviewed by ED physician. Medications Administered Medications (Trade) Dose Ordered Sig/Ethan Route Start Time Stop Time Status Last Admin Dose Admin Sodium Chloride 1,000 ml @ 999 mls/hr Q1H1M STAT IV 02/11/18 14:05 02/11/18 15:05 DC 02/11/18 14:26 999 MLS/HR Metoclopramide HCl (Reglan Inj) 10 mg NOW STAT IV 02/11/18 14:05 02/11/18 14:07 DC 02/11/18 14:27 10 MG Hydromorphone HCl (Dilaudid Inj) 0.5 mg NOW STAT IV 02/11/18 14:05 02/11/18 14:07 DC 02/11/18 14:27 0.5 MG Ketorolac Tromethamine (Toradol Inj) 30 mg NOW STAT IV 02/11/18 14:05 02/11/18 14:07 DC 02/11/18 14:27 30 MG Promethazine HCl 25 mg/Sodium Chloride 51 ml @ 204 mls/hr NOW STAT IV 02/11/18 18:01 02/11/18 18:15 DC 02/11/18 18:32 204 MLS/HR ED Course 1403: Past medical records reviewed. The patient was evaluated in room C6. A complete history and physical examination was performed. 1405: Toradol Inj 30 mg IV, Dilaudid Inj 0.5 mg IV, Reglan Inj 10 mg IV, NSS 1000 ml @ 999 mls/hr IV. 1455: I reevaluated and updated the patient. 1530: I reevaluated and updated the patient. She is resting comfortably. 1800: Upon reexamination the patient was offered hospitalization but wants to go home. I discussed results and treatment plan with the patient. She verbalizes agreement and understanding. The patient is ready for discharge. 1801: Promethazine HCl 25 mg/Sodium Chloride 51 ml @ 204 mls/hr IV. 1844: I spoke with the mother of the patient, and offered her hospitalization as well, but the mother says that the patient feels well enough to go home, so she will try it at home. She agrees that the patient will stick to a clear liquid diet for the next 48 hours, and she says that the patient will return if she gets worsening abdominal pain or fevers. 1845: Percocet 5/325MG Home Pack 1 homepack PO. Medical Decision Differential diagnosis: Etiologies such as appendicitis, diverticulitis, PUD, biliary pathology, UTI, pancreatitis, obstruction, mesenteric ischemia, aortic pathology, infections, inflammatory bowel disease, renal colic, as well as others were entertained. Medication Reconcilliation Current Medication List: was personally reviewed by me Blood Pressure Screening Patient's blood pressure: Elevated blood pressure Blood pressure disposition: Elevated BP felt to be situational Impression Primary Impression: Abdominal pain Scribe Attestation The scribe's documentation has been prepared under my direction and personally reviewed by me in its entirety. I confirm that the note above accurately reflects all work, treatment, procedures, and medical decision making performed by me. Departure Information Dispostion Home / Self-Care Prescriptions Docusate Sodium (COLACE) 100 Mg Cap 1 CAP PO BID for 30 Days, #60 CAP Prov: Berry Olivera MD 02/11/18 Sennosides (SENOKOT) 8.6 Mg Tab 8.6 MG PO HS for 30 Days, #30 TAB Prov: Berry Olivera MD 02/11/18 Oxycodone/Acetaminophen 5MG/325MG (PERCOCET 5MG/325MG) Tab 1-2 TAB PO Q4H Y for Pain, #14 TAB Prov: Berry Olivera MD 02/11/18 Referrals MARIANNE CATHERINE M.D. (PCP) Patient Instructions Diet Clear Liquid Dc, My [facility], Pancreatitis Acute Dc, Pancreatitis Chronic Dc Additional Instructions CLear liquid diet next 48 hours NEED FOLLOW UP WITH GI Return if pain is out of control or you develop fevers You received narcotic or benzodiazepene medication while in the emergency room today. This is an addictive medication that may cause drowziness as well as constipation. Do not drive, operate heavy machinery, or drink alcohol under the influence of this medication. Take Percocet for breakthrough pain You have been examined and treated today on an emergency basis only. This is not a substitute for, or an effort to provide, complete comprehensive medical care. It is impossible to recognize and treat all injuries or illnesses in a single emergency department visit. It is therefore important that you follow up closely with Dr Catherine. Call as soon as possible for an appointment. Thank you for your time and consideration. I look forward to speaking with you again soon. Please don't hesitate to call us if you have any questions. Problem Qualifiers Primary Impression: Abdominal pain Abdominal location: epigastric Qualified Codes: R10.13 - Epigastric pain
[2018-02-11] MEDS ORDERED: OPTIRAY 320 IV PRN (14:30)
[2018-02-11 14:41] LABS: BASO % 0.2 %; BASO ABS # 0.02 K/uL (0-0.2); EOS % 0.7 %; EOS ABS # 0.06 K/uL (0-0.5); HEMATOCRIT 42.5 % (37-47); HEMOGLOBIN 14.8 g/dL (12.0-16.0); IG# 0.01 K/uL (0.00-0.02); LYMPH % 12.4 %; LYMPH ABS # 1.14 K/uL (1.2-3.4); MEAN CELL VOLUME 87.4 fL (80-100); MEAN CORPUSCULAR HEMOGLOBIN 30.5 pg (25-34); MEAN CORPUSCULAR HGB CONC 34.8 g/dl (32-36); MEAN PLATELET VOLUME 9.4 fL (7.4-10.4); MONO % 8.2 %; MONO ABS # 0.75 K/uL (0.11-0.59); NEUT % 78.4 %; PLATELET COUNT 261 K/uL (130-400); RED CELL DISTRIBUTION WIDTH CV 12.6 % (11.5-14.5); RED CELL DISTRIBUTION WIDTH SD 40.3 fL (36.4-46.3); WHITE BLOOD COUNT 9.18 K/uL (4.8-10.8)
[2018-02-11 14:57] LABS: ALBUMIN 4.1 gm/dl (3.4-5.0); CALCIUM 9.3 mg/dl (8.5-10.1); POTASSIUM 3.8 mmol/L (3.5-5.1)
[2018-02-11 15:00] LABS: TOTAL PROTEIN 8.2 gm/dl (6.4-8.2)
[2018-02-11] MEDS ORDERED: ACET-1311 PO (15:15)
[2018-02-11] MEDS ORDERED: OXYC-57 PO ×2 (15:20→18:06)
[2018-02-11] MEDS ORDERED: ONDA4TAB46 PO (15:20)
--- NOTE | 2018-02-11 17:13 | DIAGNOSTIC IMAGING REPORT ---
CT ABD/PELVIS IV AND ORAL CONT CLINICAL HISTORY: Diffuse abdominal pain. History of pancreatitis. COMPARISON STUDY: 10/18/2015 TECHNIQUE: Following the IV administration of 117 mL of Optiray-320, CT scan of the abdomen and pelvis was performed from the lung bases to the proximal femurs. Images are reviewed in the axial, sagittal, and coronal planes. IV contrast was administered without complication. A dose lowering technique was utilized adhering to the principles of ALARA. CT DOSE: 264.37 mGy.cm FINDINGS: Lower chest: The heart is normal in size and configuration, without pericardial effusion. The lung bases and pleural spaces are clear. Liver: The contrast-enhanced liver is normal in size, contour, and attenuation. There is no intrahepatic biliary ductal dilatation. The hepatic veins and portal veins are patent. Gallbladder: Surgically absent Spleen: Normal in size and attenuation. Pancreas: No pancreatic masses are visualized. There are few pancreatic calcifications. There is mild infiltration of peripancreatic and periduodenal fat. The findings may be secondary to pancreatitis and correlation with appropriate enzymes is recommended. There is no significant ductal dilatation. Adrenal glands: Unremarkable. Kidneys: There is symmetric renal cortical enhancement. The kidneys are normal in size without hydronephrosis. Bowel: There are no transition zones indicate bowel obstruction. There is no acute diverticulitis. There are no findings to indicate acute appendicitis. Peritoneum: There is trace free pelvic fluid likely physiologic. There is no free intraperitoneal air. Vasculature: The abdominal aorta is normal in course and caliber. Adenopathy: None. Pelvic viscera: An IUD is visualized. Skeletal structures: No destructive osseous lesions are seen. IMPRESSION: 1. No evidence of bowel obstruction. No evidence of free air 2. Normal appendix. No evidence of acute diverticulitis 3. Infiltration of the peripancreatic and periduodenal fat. The findings may indicate acute pancreatitis. Correlation with appropriate biochemical markers is recommended. Electronically signed by: Yunior Villarreal M.D. 02/11/2018 5:12 PM Dictated Date/Time: 02/11/2018 5:07 PM
[2018-02-11] MEDS ORDERED: PROMETHAZINE HCL INJ 25 MG in SODIUM CHLORIDE 0.9% 50ML 50 ML IV STA (18:01)
[2018-02-11] MEDS ORDERED: DOCU-94 PO (18:06)
[2018-02-11] MEDS ORDERED: SENN1TAB77 PO (18:06)
[2018-02-11] MEDS ORDERED: PERCOCET HOME PACK PO ONE (18:45)
[2018-02-11 19:04] VITALS: BP 114/67; PULSE 76; O2SAT 94
== END 2018-02-11 19:04 | disposition home or self-care (01) ==
LOC: C.EDB 13:44 → C.EDC 19:04
DX: R10.13 Epigastric pain (principal); K51.90 Ulcerative colitis, unspecified, without complications; F90.9 Attention-deficit hyperactivity disorder, unspecified type; F41.9 Anxiety disorder, unspecified; Z88.0 Allergy status to penicillin; Z88.8 Allergy status to other drugs, medicaments and biological substances; Z87.820 Personal history of traumatic brain injury

== ENCOUNTER 2019-03-01 16:06 | Inpatient (IN) ==
[2019-03-01 16:38] LABS: Basophils # (auto) 0.03 K/uL (0-0.2); Basophils % (auto) 0.5 %; Eosinophils # (auto) 0.12 K/uL (0-0.5); Hemoglobin 13.4 g/dL (12.0-16.0); Immature Granulocytes # (auto) 0.01 K/uL (0.00-0.02); Immature Granulocytes % (auto) 0.2 %; Lymphocytes # (auto) 1.73 K/uL (1.2-3.4); Lymphocytes % (auto) 29.3 %; Mean Corpuscular Hgb Conc 35.3 g/dL (32-36); Mean Corpuscular Volume 89.8 fL (80-100); Mean Platelet Volume 9.8 fL (7.4-10.4); Monocytes # (auto) 0.61 K/uL (0.11-0.59); Monocytes % (auto) 10.3 %; Neutrophils % (auto) 57.7 %; Platelet Count 220 K/uL (130-400); RDW Coefficient of Variation 13.4 % (11.5-14.5); RDW Standard Deviation 44.1 fL (36.4-46.3); Red Blood Count 4.23 M/uL (4.2-5.4)
[2019-03-01 17:09] LABS: Albumin Level 3.7 gm/dl (3.4-5.0); Creatinine Clr Calc Pharmacy 72.7 ml/min; Est GFR (African American) 76.6; Est GFR (Non-African American) 66.1; Potassium 4.1 mmol/L (3.5-5.1)
[2019-03-01 17:12] LABS: Bilirubin,Total 0.7 mg/dl (0.2-1); Globulin 3.6 gm/dl (2.5-4.0); Total Protein 7.3 gm/dl (6.4-8.2)
[2019-03-01] MEDS ORDERED: ONDANSETRON INJ 2 MG/ML 2 ML VIAL ONE ×2 (17:30→19:47)
[2019-03-01] MEDS ORDERED: KETOROLAC 30 MG/ML VIAL IV STA (17:43)
[2019-03-01] MEDS ORDERED: ONDANSETRON INJ 2 MG/ML 2 ML VIAL IV STA (17:43)
[2019-03-01] MEDS ORDERED: SODIUM CHLORIDE 0.9% 1000ML 1,000 ML IV SCH (17:45)
[2019-03-01] MEDS: HYDROmorphone INJ 0.5 MG/0.5 ML SYR IV PRN ×3 (18:01→23:12)
--- NOTE | 2019-03-01 19:15 | Ultrasound Report ---
US abdomen limited HISTORY: 23 years-old Female Pancreatitis acute right upper quadrant abdominal pain. History of prio r cholecystectomy. COMPARISON: CT abdomen and pelvis 07/20/2018 TECHNIQUE: Multiple real-time sonographic images of the abdominal right upper quadrant were obtained assessing grayscale appearance and color flow FINDINGS: Prior cholecystectomy. The visualized pancreas is mildly heterogeneous. No pancreatic fluid collectio ns. The previously described pancreatic head calcifications are better seen on comparison CT. No panc reatic ductal dilation. Liver is unremarkable. No ascites or biliary ductal dilation identified. Common bile duct is normal, 5 mm. Imaged right kidney is unremarkable without hydronephrosis. IMPRESSION: 1. Nonspecific mildly heterogeneous appearance of the pancreas. Correlate with lipase level. 2. Prior cholecystectomy. 3. No biliary ductal dilation. The above report was generated using voice recognition software. It may contain grammatical, syntax o r spelling errors. Electronically signed by: Giovanny Ac M.D. 03/01/2019 7:14 PM
[2019-03-01 19:38] LABS: Appearance Urine Clear (Clear); Bilirubin Urine Negative (Negative); Blood Urine Negative (Negative); Color Urine Yellow; Glucose Urine UA Negative (Negative); Ketones Urine Negative (Negative); Leukocyte Esterase Urine Negative (Negative); Nitrite Urine Negative (Negative); Protein Urine Negative (Negative); Specific Gravity Urine 1.019 (1.000-1.030); Urobilinogen Urine Negative (Negative); pH Urine 5.5 (4.5-7.5)
[2019-03-01 19:41] LABS: Pregnancy Test, Urine Negative (Negative)
--- NOTE | 2019-03-01 20:29 | History & Physical Report ---
Date of Service March 01, 2019 Assessment & Plan (1) Pancreatitis: 23 y/o F with a history of recurrent pancreatitis of unclear etiology. Presents with progressive abdominal pain, nausea and vomiting over the past 2 days. She recognized this as recurrence of pancreatitis. She does not report fevers. The pt is admitted with recurrent pancreatitis. If this does not show short- term improvement, transfer to a tertiary center should be considered. She states that her lipase is particularly high for her this admission. She is placed on IVF with ringers and provided with narcotics and antiemetics as needed. She will remain on clears. Full code, Lovenox prophylaxis Total time for this admit including review of labs, meds, imaging, records - discussion with pt and ER attending 36 min Present on Admission?: Yes History of Present Illness Chief Complaint: Abdominal pain Primary Care Provider: MARIANNE HOFFMANN 23 y/o F with a history of recurrent pancreatitis of unclear etiology. Presents with progressive abdominal pain, nausea and vomiting over the past 2 days. She recognized this as recurrence of pancreatitis. She does not report fevers. PMH: 1) Pancreatitis - recurrent - 15 admissions to various hospitals since 2012. No clear etiology been found. She had a sphincterotomy and biliary stenting for the purpose of dilating the ducts. This seemed to help for a short period only. 2) TBI 2008 3) History of C diff Surgical: 1) Cholecystectomy due to pancreatitis which did not have the desired effect 2) Pancreatic sphincterotomy and biliary stenting Social: Does not smoke or drink. She is employed and studying sculpture at [employer] Family: Both parents are alive and well Allergies Allergy/AdvReac Type Severity Reaction Status Date / Time Penicillins Allergy Intermediate HIVES Verified 03/01/19 21:29 Sulfa (Sulfonamide Allergy Intermediate HIVES Verified 03/01/19 17:51 Antibiotics) cephalexin Allergy Unknown UNKNOWN Verified 03/01/19 17:51 moxifloxacin Allergy Unknown adverse Unverified 03/01/19 17:51 reaction morphine AdvReac Intermediate INCREASED Verified 03/01/19 17:51 PAIN all antibiotics AdvReac Unknown Unknown Uncoded 03/01/19 17:51 Home Medications Home Medications Medication Instructions Recorded Confirmed Type levonorgestrel [Juliana] 1 device INTRAUTERINE UD 07/20/18 03/01/19 History ibuprofen 200 mg PO Q6H PRN 03/01/19 03/01/19 History Past Med/Surg History Medical History Pancreatitis (Chronic) Surgical History History of cholecystectomy (Resolved) Family History Other No pertinent family history Social History Preferred Language: British current occupational status: student Feels Safe at Home: Yes Smoking Status: Never smoker Review of Systems Review of Systems: Gen: Denies fevers, night sweats, rigors, fatigue, malaise, weight loss/gain ENT: Denies congestion, throat pain, hearing loss Eyes: Denies acute visual changes CV: Denies CP, palpitations Pulmonary: Denies SOB, cough, wheezing GI: Abdominal pain, nausea and vomiting Neuro: Denies acute or unilateral weakness, acute gait impairment, headache or acute visual changes Musculoskeletal: Denies joint pain, inflammation Endocrine: Denies polydipsia, polyuria Skin: Denies acute rashes or ulcers Physical Exam Physical Exam: General: Pleasant, young F, AAO x 3, no distress ENT: No erythema or exudates, no thrush Eyes: JHONATAN, EOMI Head and neck: Normocephalic, atraumatic, No JVD, neck is supple. Chest/heart: Nontender, S1,2, RRR, no murmurs, no gallops Lungs: CTAB, no wheezing or crackles Abdomen: Mild, diffuse tenderness, BS+ Neuro: AAO x 3, speech is clear, no unilateral weakness or loss of sensation, coordination intact Musculoskeletal: No joint inflammation, muscle tenderness, FROM Skin: No acute rashes or ulcers Extremities: No clubbing, cyanosis, edema Results & Data Vital Signs (Past 12 Hours) Vital Signs Temp Pulse Pulse Resp BP BP Pulse Ox 03/01/19 18:32 50 L 18 115/84 99 03/01/19 16:14 98.4 F 74 20 125/81 98 Diagnostic Findings US abdomen: 1. Nonspecific mildly heterogeneous appearance of the pancreas. Correlate with lipase level. 2. Prior cholecystectomy. 3. No biliary ductal dilation.
[2019-03-01] MEDS ORDERED: ACETAMINOPHEN 325 MG TAB PO PRN (21:26)
[2019-03-01] MEDS ORDERED: POLYETHYLENE (MIRALAX) 17 GM PACK PO PRN (21:26)
[2019-03-01] MEDS: D5W AND LACTATED RINGERS 1,000 ML IV SCH (22:05)
[2019-03-01] MEDS: DOCUSATE SODIUM 100 MG CAP PO SCH (22:05)
[2019-03-01 22:16] LABS: INR 1.1 (0.9-1.1); Partial Thromboplastin Time 27.3 Seconds (21.0-31.0); Prothrombin Time 10.8 Seconds (9.0-12.0)
[2019-03-01] MEDS: ONDANSETRON INJ 2 MG/ML 2 ML VIAL IV PRN (23:13)
[2019-03-02] MEDS: MELATONIN 3 MG PO SCH (00:01)
[2019-03-02] MEDS: HYDROmorphone INJ 0.5 MG/0.5 ML SYR IV PRN ×5 (03:04→23:04)
[2019-03-02] MEDS: D5W AND LACTATED RINGERS 1,000 ML IV SCH ×5 (03:08→23:04)
[2019-03-02 07:16] LABS: Calcium 8.2 mg/dl (8.5-10.1); Creatinine Clr Calc Pharmacy 85.3 ml/min; Est GFR (African American) 92.9; Est GFR (Non-African American) 80.2; Magnesium 1.9 mg/dl (1.8-2.4); Potassium 4.1 mmol/L (3.5-5.1)
[2019-03-02] MEDS: ENOXAPARIN INJ 40 MG/0.4 ML SYR SQ SCH (08:23)
[2019-03-02] MEDS: DOCUSATE SODIUM 100 MG CAP PO SCH ×2 (08:25→20:37)
[2019-03-02] MEDS: ONDANSETRON INJ 2 MG/ML 2 ML VIAL IV PRN ×2 (09:08→23:04)
[2019-03-02] MEDS: PROCHLORPERAZINE 10 MG in SYRINGE 8 ML IV PRN (11:47)
--- NOTE | 2019-03-02 13:31 | Hospitalist Progress Note ---
Date of Service March 02, 2019 Assessment & Plan (1) Abdominal pain: - Presented with acute abd pain related to acute pancreatitis. - Tylenol and Dilaudid prn pain. - Colace 100 mg BID for bowel regimen. - Pancreatitis treatment as noted below. (2) Acute on chronic pancreatitis: - Presented with acute abd pain; has chronic pancreatitis, follows with GI at [facility] in [place] (Dr. Vee) - S/p cholecystectomy in past along with sphincterotomy and stent placement -- no improvement with both procedures. - Lipase level 2,322 at admission; now improved to 368. - IV fluids at 200 cc/hr. - CLD as tolerated; advance diet in future. - GI consulted as inpatient for recs. (3) Elevated BUN: - BUN was elevated on admission, likely related to dehydration in setting of poor PO intake. - Improved with IV fluids. (4) DVT prophylaxis: - SCDs; encourage ambulation. Dispo: Med/surg for treatment of pancreatitis. Supervising Physician Co-Signing Physician Notes PA Supervision Note: I did not personally see or examine the patient today, but I verified all tafoya points of NEGRO Guerra's assessment and plan with the following exceptions/additions: Awaiting GI input to see if any further workup should be done. First recurrence in about one year--> question if needs imaging to look for pseudocyst? Also, may benefit from pancrease (enzymes) with meals Subjective Pt. states pain is improved this morning, has intermittent epigastric pain. Will trial CLD for lunch. Had episode of nausea after sitting up in bed, received Compazine and Zofran throughout morning. Is having loose BMs. Pt. follows with GI at [facility]. Has chronic pain in setting of chronic pancreatitis. Review of Systems Review of Systems: All systems reviewed & are unremarkable except as noted in HPI & below Constitutional: no fever, no chills, no fatigue and no weakness Respiratory: no cough, no dyspnea, no dyspnea on exertion and no wheezing Cardiovascular: no chest pain, no palpitations, no lightheadedness and no edema Gastrointestinal: + abdominal pain, + nausea and + diarrhea/loose stools; no vomiting and no constipation Genitourinary: no difficulty urinating Musculoskeletal: no back pain and no joint pain Integumentary: no non-healing lesions Neurologic: no headache(s) Hematologic / Lymphatic: no easy bleeding and no easy bruising Allergy / Immunological: no rash Physical Exam Physical Exam: General: Resting comfortably in no apparent distress; A&OX3 HEENT: NC/AT; PERRLA with EOMI; [place] conjunctiva, MMM. Neck: Supple and nontender Cardiac: RRR w/o murmurs, gallops or rubs Lungs: CTA bilaterally; No rhonchi, wheezing, or rales Abdomen: Bowel normoactive X 4; tenderness to light palpation over epigastric region. Extremities: Warm. No edema present Neuro: No focal weakness Skin: No rash Results & Data Vital Signs (Past 12 Hours) Vital Signs Temp Pulse Resp BP Pulse Ox 03/02/19 07:05 36.7 C 55 L 16 94/65 L 98 Laboratory Results 03/02/19 03/02/19 03/01/19 Range/Units 05:53 05:53 16:23 WBC (4.8-10.8) K/uL RBC (4.2-5.4) M/uL Hgb (12.0-16.0) g/dL Hct (37-47) % MCV (80-100) fL MCH (25-34) pg MCHC (32-36) g/dL RDW Std Deviation (36.4-46.3) fL RDW Coeff of [place] (11.5-14.5) % Plt Count (130-400) K/uL MPV (7.4-10.4) fL Immature Gran % (Auto) % Neut % (Auto) % Lymph % (Auto) % [place] % (Auto) % Eos % (Auto) % Baso % (Auto) % Immature Gran # (Auto) (0.00-0.02) K/uL Neut # (Auto) (1.4-6.5) K/uL Lymph # (Auto) (1.2-3.4) K/uL [place] # (Auto) (0.11-0.59) K/uL Eos # (Auto) (0-0.5) K/uL Baso # (Auto) (0-0.2) K/uL PT 10.8 (9.0-12.0) Seconds INR 1.1 (0.9-1.1) APTT 27.3 (21.0-31.0) Seconds PTT Ratio 1.0 Sodium 141 (136-145) mmol/L Potassium 4.1 (3.5-5.1) mmol/L Chloride 110 H (98-107) mmol/L Carbon Dioxide 28 (21-32) mmol/L Anion Gap 4.0 (3-11) BUN 12 (7-18) mg/dl Creatinine 0.98 (0.6-1.2) mg/dl Est Cr Clr Drug Dosing 85.3 ml/min Est GFR ( Amer) 92.9 Est GFR (Non-Af Amer) 80.2 BUN/Creatinine Ratio 12.0 (10-20) Glucose 105 H (70-99) mg/dl Calcium 8.2 L (8.5-10.1) mg/dl Magnesium 1.9 (1.8-2.4) mg/dl Total Bilirubin (0.2-1) mg/dl AST (15-37) U/L ALT (12-78) U/L Alkaline Phosphatase (45-117) U/L Total Protein (6.4-8.2) gm/dl Albumin (3.4-5.0) gm/dl Globulin (2.5-4.0) gm/dl Albumin/Globulin Ratio (0.9-2) Amylase (25-115) U/L Lipase 368 (73-393) U/L Urine Color Urine Appearance (Clear) Urine pH (4.5-7.5) Ur Specific [place] (1.000-1.030) Urine Protein (Negative) Urine Glucose (UA) (Negative) Urine Ketones (Negative) Urine Blood (Negative) Urine Nitrite (Negative) Urine Bilirubin (Negative) Urine Urobilinogen (Negative) Ur Leukocyte Esterase (Negative) Urine Test (Negative) 03/01/19 03/01/19 03/01/19 Range/Units 16:23 16:23 16:23 WBC (4.8-10.8) K/uL RBC (4.2-5.4) M/uL Hgb (12.0-16.0) g/dL Hct (37-47) % MCV (80-100) fL MCH (25-34) pg MCHC (32-36) g/dL RDW Std Deviation (36.4-46.3) fL RDW Coeff of [place] (11.5-14.5) % Plt Count (130-400) K/uL MPV (7.4-10.4) fL Immature Gran % (Auto) % Neut % (Auto) % Lymph % (Auto) % [place] % (Auto) % Eos % (Auto) % Baso % (Auto) % Immature Gran # (Auto) (0.00-0.02) K/uL Neut # (Auto) (1.4-6.5) K/uL Lymph # (Auto) (1.2-3.4) K/uL [place] # (Auto) (0.11-0.59) K/uL Eos # (Auto) (0-0.5) K/uL Baso # (Auto) (0-0.2) K/uL PT (9.0-12.0) Seconds INR (0.9-1.1) APTT (21.0-31.0) Seconds PTT Ratio Sodium (136-145) mmol/L Potassium (3.5-5.1) mmol/L Chloride (98-107) mmol/L Carbon Dioxide (21-32) mmol/L Anion Gap (3-11) BUN (7-18) mg/dl Creatinine (0.6-1.2) mg/dl Est Cr Clr Drug Dosing ml/min Est GFR ( Amer) Est GFR (Non-Af Amer) BUN/Creatinine Ratio (10-20) Glucose (70-99) mg/dl Calcium (8.5-10.1) mg/dl Magnesium (1.8-2.4) mg/dl Total Bilirubin (0.2-1) mg/dl AST (15-37) U/L ALT (12-78) U/L Alkaline Phosphatase (45-117) U/L Total Protein (6.4-8.2) gm/dl Albumin (3.4-5.0) gm/dl Globulin (2.5-4.0) gm/dl Albumin/Globulin Ratio (0.9-2) Amylase 282 H (25-115) U/L Lipase (73-393) U/L Urine Color Yellow Urine Appearance Clear (Clear) Urine pH 5.5 (4.5-7.5) Ur Specific [place] 1.019 (1.000-1.030) Urine Protein Negative (Negative) Urine Glucose (UA) Negative (Negative) Urine Ketones Negative (Negative) Urine Blood Negative (Negative) Urine Nitrite Negative (Negative) Urine Bilirubin Negative (Negative) Urine Urobilinogen Negative (Negative) Ur Leukocyte Esterase Negative (Negative) Urine Test Negative (Negative) 03/01/19 03/01/19 Range/Units 16:23 16:23 WBC 5.90 (4.8-10.8) K/uL RBC 4.23 (4.2-5.4) M/uL Hgb 13.4 (12.0-16.0) g/dL Hct 38.0 (37-47) % MCV 89.8 (80-100) fL MCH 31.7 (25-34) pg MCHC 35.3 (32-36) g/dL RDW Std Deviation 44.1 (36.4-46.3) fL RDW Coeff of [place] 13.4 (11.5-14.5) % Plt Count 220 (130-400) K/uL MPV 9.8 (7.4-10.4) fL Immature Gran % (Auto) 0.2 % Neut % (Auto) 57.7 % Lymph % (Auto) 29.3 % [place] % (Auto) 10.3 % Eos % (Auto) 2.0 % Baso % (Auto) 0.5 % Immature Gran # (Auto) 0.01 (0.00-0.02) K/uL Neut # (Auto) 3.40 (1.4-6.5) K/uL Lymph # (Auto) 1.73 (1.2-3.4) K/uL [place] # (Auto) 0.61 H (0.11-0.59) K/uL Eos # (Auto) 0.12 (0-0.5) K/uL Baso # (Auto) 0.03 (0-0.2) K/uL PT (9.0-12.0) Seconds INR (0.9-1.1) APTT (21.0-31.0) Seconds PTT Ratio Sodium 139 (136-145) mmol/L Potassium 4.1 (3.5-5.1) mmol/L Chloride 108 H (98-107) mmol/L Carbon Dioxide 26 (21-32) mmol/L Anion Gap 5.0 (3-11) BUN 20 H (7-18) mg/dl Creatinine 1.15 (0.6-1.2) mg/dl Est Cr Clr Drug Dosing 72.7 ml/min Est GFR ( Amer) 76.6 Est GFR (Non-Af Amer) 66.1 BUN/Creatinine Ratio 17.0 (10-20) Glucose 107 H (70-99) mg/dl Calcium 9.0 (8.5-10.1) mg/dl Magnesium (1.8-2.4) mg/dl Total Bilirubin 0.7 (0.2-1) mg/dl AST 15 (15-37) U/L ALT 22 (12-78) U/L Alkaline Phosphatase 86 (45-117) U/L Total Protein 7.3 (6.4-8.2) gm/dl Albumin 3.7 (3.4-5.0) gm/dl Globulin 3.6 (2.5-4.0) gm/dl Albumin/Globulin Ratio 1.0 (0.9-2) Amylase (25-115) U/L Lipase 2322 H (73-393) U/L Urine Color Urine Appearance (Clear) Urine pH (4.5-7.5) Ur Specific [place] (1.000-1.030) Urine Protein (Negative) Urine Glucose (UA) (Negative) Urine Ketones (Negative) Urine Blood (Negative) Urine Nitrite (Negative) Urine Bilirubin (Negative) Urine Urobilinogen (Negative) Ur Leukocyte Esterase (Negative) Urine Test (Negative)
[2019-03-03] MEDS: D5W AND LACTATED RINGERS 1,000 ML IV SCH ×4 (03:53→22:12)
[2019-03-03] MEDS: HYDROmorphone INJ 0.5 MG/0.5 ML SYR IV PRN ×4 (03:56→22:12)
[2019-03-03 06:58] LABS: Albumin Globulin Ratio 1.1 (0.9-2); Albumin Level 3.1 gm/dl (3.4-5.0); BUN Creatinine Ratio 6.5 (10-20); Bilirubin,Total 1.1 mg/dl (0.2-1); Calcium 8.7 mg/dl (8.5-10.1); Creatinine Clr Calc Pharmacy 96.1 ml/min; Est GFR (African American) 107.3; Est GFR (Non-African American) 92.6; Globulin 2.8 gm/dl (2.5-4.0); Potassium 3.7 mmol/L (3.5-5.1); Total Protein 5.9 gm/dl (6.4-8.2)
[2019-03-03] MEDS: ENOXAPARIN INJ 40 MG/0.4 ML SYR SQ SCH (08:46)
[2019-03-03] MEDS: ONDANSETRON INJ 2 MG/ML 2 ML VIAL IV PRN ×2 (08:47→17:20)
[2019-03-03] MEDS: DOCUSATE SODIUM 100 MG CAP PO SCH (08:48)
--- NOTE | 2019-03-03 09:29 | History & Physical Report ---
Date of Service March 03, 2019 History of Present Illness Chief Complaint: Pancreatitis Primary Care Provider: MARIANNE HOFFAMNN 23 yo student at [employer], originally from [place], who follows with Dr. Vee from [facility], was admitted for abdominal pain. Workup showed elevated lipase and she was diagnosed with pancreatitis. She has been on IV LR overnite with improvement in her pain- however when she ate yesterday, her pain worsened slightly. This morning her pain is 3/10. She denies nausea/vomiting. She reports no one has ever figured out what her pancreatitis is from- she has had a prior cholecystectomy empirically about 4 years ago she states through the [facility] system and she thinks a biliary/pancreatic sphincterotomy. She has had IgG4 levels checked, on no medications that could pancreatitis that she is aware of, no family history, no family history of autoimmune problems, no herbal supplements. She is overall feeling better than when she came in. Allergies Allergy/AdvReac Type Severity Reaction Status Date / Time Penicillins Allergy Intermediate HIVES Verified 03/01/19 21:29 Sulfa (Sulfonamide Allergy Intermediate HIVES Verified 03/01/19 17:51 Antibiotics) cephalexin Allergy Unknown UNKNOWN Verified 03/01/19 17:51 moxifloxacin Allergy Unknown adverse Unverified 03/01/19 17:51 reaction morphine AdvReac Intermediate INCREASED Verified 03/01/19 17:51 PAIN all antibiotics AdvReac Unknown Unknown Uncoded 03/01/19 17:51 Home Medications Home Medications Medication Instructions Recorded Confirmed Type levonorgestrel [Juliana] 1 device INTRAUTERINE UD 07/20/18 03/01/19 History ibuprofen 200 mg PO Q6H PRN 03/01/19 03/01/19 History Past Med/Surg History Medical History Pancreatitis (Chronic) Brain bleed Fibromyalgia Migraine Surgical History History of cholecystectomy (Resolved) Family History Other No pertinent family history Social History Preferred Language: Romanian Communication Ability: Effective Office Automation Technician Required: No Beliefs That Will Affect Care: None Current Living Situation: Significant Other and Other current occupational status: student Other Information That Helps Us Care for You: No Feels Safe at Home: Yes Safety Concerns: Feels Safe At This Time Smoking Status: Never smoker Hx Alcohol Use: No Hx Substance Use: No Review of Systems All systems reviewed & are unremarkable except as noted in HPI & below Physical Exam Vital Signs (Past 24 Hours): Last Vital Signs Temp 36.9 C 03/03/19 07:15 Pulse 58 L 03/03/19 07:15 Resp 14 03/03/19 07:15 BP 108/70 03/03/19 07:15 Pulse Ox 96 03/03/19 07:15 Physical Exam: No acute distress Eyes: PERRL, conjunctivae normal, anicteric sclerae Respiratory: normal respiratory effort, lungs clear to auscultation Cardiovascular: RRR, no murmur, no edema Gastrointestinal (Abdomen): normal bowel sounds, soft, nontender, no hepatosplenomegaly Results & Data Laboratory Results Labs reviewed Supervising Physician Co-Signing Physician Notes 23 yo fm with recurrent pancreaitits, with prior extensive workup thru [facility] with unclear etiology. Presumed idiopathic pancreatitis as she reports she has been worked up for "everything". She has had her gallbladder removed with biliary sphincterotomy/pancreatic sphincterotomy she thinks with recurrent pancreatitis. At this time, she may have idiopathic pancreatitis and or SOD. Her primary GI doctor is Dr. Vee through [facility] who she would like to continue to follow with. She has never had surgery on her pancreas or on pancreatic enzymes. I think at this time given her extensive prior workup would be to try to help improve her pain - it appears better today. She is about to clears/semi soft liquids. At this time, I think that is reasonable. Once her pain is controlled, she can potentially go home with further follow-up by her primary operators teacher, Dr. Vee. She appears to have already had a pancreatic sphincterotomy per history which if she has SOD can benefit women 50% of the time, further endotherapy for her pancreatitis I would defer to her primary GI doctor, Dr. Vee. Thank you for the consult.
--- NOTE | 2019-03-03 13:29 | Hospitalist Progress Note ---
Date of Service March 03, 2019 Assessment & Plan (1) Abdominal pain: - Presented with acute abd pain related to acute pancreatitis. - Tylenol and Dilaudid prn pain. - Pancreatitis treatment as noted below. (2) Acute on chronic pancreatitis: - Presented with acute abd pain; has chronic pancreatitis, follows with GI at [facility] in [place] (Dr. Vee) - Has ongoing epigastric abd pain, worse with eating. - S/p cholecystectomy in past along with sphincterotomy with stent placement -- no improvement with both procedures. - Lipase level 2,322 at admission; now improved to 164. - Decrease IV fluids to 125 cc/hr. - Advance to FLD as tolerated per patient request. - GI consulted, appreciate input. - Cannot tolerate Creon due to h/o severe constipation. (3) Elevated BUN: - BUN was elevated on admission, likely related to dehydration in setting of poor PO intake. - Improved with IV fluids. (4) DVT prophylaxis: - SCDs; encourage ambulation. Lovenox q24hr. Dispo: Med/surg for treatment of pancreatitis. Discharge pending improvement in abd pain. Pt. has her first final on Monday, was approved to be re-scheduled for . Is awaiting reply from other professors. Supervising Physician Co-Signing Physician Notes PA Supervision Note: I did not personally see or examine the patient today, but I verified all tafoya points of NEGRO Guerra's assessment and plan with the following exceptions/additions: None Subjective Pt. has ongoing epigastric pain with eating meals. Rates pain as a 4/10 on pain scale with meals. Denies pain at rest. Has nausea. Stools are loose -- pt. cannot tolerate Creon, has h/o severe constipation with med. Plan to advance to full liquid diet per pt. request. Review of Systems Review of Systems: All systems reviewed & are unremarkable except as noted in HPI & below Constitutional: no fever, no chills, no fatigue and no weakness Respiratory: no cough, no dyspnea, no dyspnea on exertion and no wheezing Cardiovascular: no chest pain, no palpitations, no syncope and no edema Gastrointestinal: + abdominal pain, + nausea and + diarrhea/loose stools; no vomiting and no constipation Genitourinary: no difficulty urinating Musculoskeletal: no back pain and no joint pain Integumentary: no non-healing lesions Allergy / Immunological: no rash Physical Exam Physical Exam: General: Resting comfortably in no apparent distress HEENT: NC/AT; PERRLA with EOMI; [place] conjunctiva, MMM. Neck: Supple and nontender Cardiac: RRR Lungs: CTA bilaterally; No rhonchi, wheezing, or rales Abdomen: Bowel normoactive X 4; Tenderness to light palpation in the epigastric region. Extremities: Warm. No edema present Neuro: No focal weakness Skin: No rash Results & Data Vital Signs (Past 12 Hours) Vital Signs Temp Pulse Resp BP Pulse Ox 03/03/19 07:15 36.9 C 58 L 14 108/70 96 Laboratory Results 03/03/19 Range/Units 05:53 Sodium 141 (136-145) mmol/L Potassium 3.7 (3.5-5.1) mmol/L Chloride 110 H (98-107) mmol/L Carbon Dioxide 27 (21-32) mmol/L Anion Gap 5.0 (3-11) BUN 6 L D (7-18) mg/dl Creatinine 0.87 (0.6-1.2) mg/dl Est Cr Clr Drug Dosing 96.1 ml/min Est GFR ( Amer) 107.3 Est GFR (Non-Af Amer) 92.6 BUN/Creatinine Ratio 6.5 L (10-20) Glucose 105 H (70-99) mg/dl Calcium 8.7 (8.5-10.1) mg/dl Total Bilirubin 1.1 H D (0.2-1) mg/dl AST 14 L (15-37) U/L ALT 18 (12-78) U/L Alkaline Phosphatase 58 (45-117) U/L Total Protein 5.9 L (6.4-8.2) gm/dl Albumin 3.1 L (3.4-5.0) gm/dl Globulin 2.8 (2.5-4.0) gm/dl Albumin/Globulin Ratio 1.1 (0.9-2) Lipase 164 (73-393) U/L
[2019-03-03] MEDS: PROCHLORPERAZINE 10 MG in SYRINGE 8 ML IV PRN (13:53)
[2019-03-03] MEDS ORDERED: PANCREAZE (LIPASE 10,500U) CAP PO SCH (16:30)
--- NOTE | 2019-03-03 20:22 | Emergency Department Note ---
Entered by Paul Casey acting as a scribe for Berry Olivera MD History of Present Illness General Chief complaint: Abdominal Pain Stated complaint: CHRONIC PANCREATITIS Time Seen by Provider: 03/01/19 17:31 Source: patient History of Present Illness Onset (ago): hour(s) (06:00 this morning) Location: abdomen Pain Consistency: + other (worsened) Maximum Pain Intensity: 7 Quality: + other (similar to past pancreatitis) Associated symptoms: + other (vomited) The patient is a 23 year old female with chronic pancreatitis who presents to the Emergency Room with complaints of worsened abdominal pain beginning this morning at 06:00. The patient reports that the pain woke her from sleep, and she vomited. She states that her pain has been persistent throughout the day and currently rates it 7/10. She notes that she has chronic abdominal pain and has been evaluated several times in the past for pancreatitis. She states that her amylase and lipase are normally elevated, but for the past 1.5 years they have been lower than usual. She states that she follows a physician for her pancreatitis in [place]. She states that her most recent period was last week, and she denies chance of . She reports a history of cholecystectomy and pancreatic stent placement/removal. She is not on insulin. She does not wish for me to speak to her parents at this time. Home Medications Home Medications Medication Instructions Recorded Confirmed Type levonorgestrel [Juliana] 1 device INTRAUTERINE UD 07/20/18 03/01/19 History ibuprofen 200 mg PO Q6H PRN 03/01/19 03/01/19 History Allergies Allergy/AdvReac Type Severity Reaction Status Date / Time Penicillins Allergy Intermediate HIVES Verified 03/01/19 21:29 Sulfa (Sulfonamide Allergy Intermediate HIVES Verified 03/01/19 17:51 Antibiotics) cephalexin Allergy Unknown UNKNOWN Verified 03/01/19 17:51 moxifloxacin Allergy Unknown adverse Unverified 03/01/19 17:51 reaction morphine AdvReac Intermediate INCREASED Verified 03/01/19 17:51 PAIN all antibiotics AdvReac Unknown Unknown Uncoded 03/01/19 17:51 Past Med/Surg History Medical History Pancreatitis (Chronic) Brain bleed Fibromyalgia Migraine Surgical History History of cholecystectomy (Resolved) Family History Other No pertinent family history Social History Preferred Language: [place] Communication Ability: Effective Area Field Manager Required: No Beliefs That Will Affect Care: None Current Living Situation: Significant Other and Other current occupational status: student Other Information That Helps Us Care for You: No Feels Safe at Home: Yes Safety Concerns: Feels Safe At This Time Smoking Status: Never smoker Hx Alcohol Use: No Hx Substance Use: No Review of Systems See HPI for pertinent positives & negatives. and A total of 10 systems reviewed and were otherwise negative Physical Exam Vital Signs Vital Signs - 24 hr 03/02/19 22:56 03/03/19 07:15 03/03/19 15:28 Temperature 36.8 C 36.9 C 37.0 C Temperature Source Oral Oral Oral Pulse Rate [Left Finger] 55 L 58 L 63 Respiratory Rate 14 14 16 Respiratory Effort / Characteristics Non-Labored Respiratory Depth Normal Normal Respiratory Pattern Regular Blood Pressure [Right Arm] 104/67 108/70 120/71 Blood Pressure Mean [Right Arm] 79 82 87 Blood Pressure Position [Right Arm] Lying Lying Pulse Oximetry 98 96 98 Oxygen Delivery Method Room Air Room Air Room Air GENERAL: Awake, alert, well-appearing, in no acute distress HENT: Normocephalic, atraumatic. Oropharynx unremarkable. EYES: Normal conjunctiva. Sclera non-icteric. NECK: Supple. No nuchal rigidity. FROM. No JVD. RESPIRATORY: Clear to auscultation. CARDIAC: Regular rate, normal rhythm. Extremities warm and well perfused. Pulses equal. ABDOMEN: Soft, non-distended. Epigastric tenderness to palpation. No rebound or guarding. No masses. RECTAL: Deferred. MUSCULOSKELETAL: Chest examination reveals no tenderness. The back is symmetrical on inspection without obvious abnormality. There is no CVA tenderness to palpation. No joint edema. LOWER EXTREMITIES: Calves are equal size bilaterally and non-tender. No edema. No discoloration. NEURO: Normal sensorium. No sensory or motor deficits noted. SKIN: No rash or jaundice noted. Course 173: The patient was evaluated in room B5. A complete history and physical examination were performed. 2009: I consulted Dr. Sibley - [facility] Hospitalist. The patient will be reevaluated for hospitalization. Administered Medications Enoxaparin Sodium (Lovenox) 40 mg SQ Q24H SHAE Stop: 04/01/19 08:59 Last Admin: 03/03/19 08:46 Dose: Not Given Documented by: [id number] Admin: 03/02/19 08:23 Dose: Not Given Documented by: [id number] Hydromorphone HCl (Dilaudid) 0.5 mg IV Q3H PRN PRN Reason: Pain Stop: 03/15/19 21:25 Last Admin: 03/03/19 17:20 Dose: 0.5 mg Documented by: [id number] Admin: 03/03/19 09:32 Dose: 0.5 mg Documented by: [id number] Admin: 03/03/19 03:56 Dose: 0.5 mg Documented by: [id number] Admin: 03/02/19 23:04 Dose: 0.5 mg Documented by: [id number] Admin: 03/02/19 19:15 Dose: 0.5 mg Documented by: [id number] Admin: 03/02/19 15:20 Dose: 0.5 mg Documented by: [id number] Admin: 03/02/19 08:25 Dose: 0.5 mg Documented by: [id number] Admin: 03/02/19 03:04 Dose: 0.5 mg Documented by: [id number] Admin: 03/01/19 23:12 Dose: 0.5 mg Documented by: [id number] Prochlorperazine 10 mg/ (Syringe) 10 mls @ 5 mls/min IV Q6H PRN PRN Reason: Nausea And Vomiting Stop: 04/01/19 11:24 Last Admin: 03/03/19 13:53 Dose: 5 mls/min Documented by: [id number] Admin: 03/02/19 11:47 Dose: 5 mls/min Documented by: [id number] Dextrose/Lactated Ringer's (D5w And Lactated Ringers) 1,000 mls @ 125 mls/hr IV .Q8H SHAE Stop: 04/01/19 13:29 Last Infusion: 03/03/19 15:00 Dose: 125 mls/hr Documented by: [id number] Admin: 03/03/19 13:53 Dose: 200 mls/hr Documented by: [id number] Infusion: 03/03/19 13:52 Dose: 200 mls/hr Documented by: [id number] Admin: 03/03/19 08:52 Dose: 200 mls/hr Documented by: [id number] Infusion: 03/03/19 08:52 Dose: 200 mls/hr Documented by: [id number] Admin: 03/03/19 03:53 Dose: 200 mls/hr Documented by: [id number] Infusion: 03/03/19 03:53 Dose: 200 mls/hr Documented by: [id number] Admin: 03/02/19 23:04 Dose: 200 mls/hr Documented by: [id number] Infusion: 03/02/19 23:04 Dose: 200 mls/hr Documented by: [id number] Admin: 03/02/19 18:50 Dose: 200 mls/hr Documented by: [id number] Infusion: 03/02/19 18:50 Dose: 200 mls/hr Documented by: [id number] Admin: 03/02/19 13:53 Dose: 200 mls/hr Documented by: [id number] Melatonin 3 Mg: Non -Formulary Medication 3 mg PO HS SHAE Stop: 04/01/19 20:59 Last Admin: 03/02/19 00:01 Dose: 3 mg Documented by: [id number] Ondansetron HCl (Zofran) 4 mg IV Q6H PRN PRN Reason: Nausea Stop: 03/31/19 21:25 Last Admin: 03/03/19 17:20 Dose: 4 mg Documented by: [id number] Admin: 03/03/19 08:47 Dose: 4 mg Documented by: [id number] Admin: 03/02/19 23:04 Dose: 4 mg Documented by: [id number] Admin: 03/02/19 09:08 Dose: 4 mg Documented by: [id number] Admin: 03/01/19 23:13 Dose: 4 mg Documented by: [id number] Discontinued Medications Docusate Sodium (Colace) 100 mg PO BID SHAE Stop: 03/31/19 21:25 Last Admin: 03/03/19 08:48 Dose: 100 mg Documented by: [id number] Admin: 03/02/19 20:37 Dose: 100 mg Documented by: [id number] Admin: 03/02/19 08:25 Dose: 100 mg Documented by: [id number] Admin: 03/01/19 22:05 Dose: 100 mg Documented by: [id number] Hydromorphone HCl (Dilaudid) 0.5 mg IV Q15M PRN PRN Reason: Pain Stop: 03/15/19 17:42 Last Admin: 03/01/19 19:52 Dose: 0.5 mg Documented by: [id number] Admin: 03/01/19 18:01 Dose: 0.5 mg Documented by: [id number] Hydroxyzine HCl (Vistaril) 25 mg PO NOW STA Stop: 03/01/19 22:39 Last Admin: 03/01/19 23:21 Dose: Not Given Documented by: [id number] Sodium Chloride (Nss 1000ml) 1,000 mls @ 999 mls/hr IV .Q1H1M SHAE Stop: 03/01/19 18:45 Last Infusion: 03/01/19 18:46 Dose: 0 mls/hr Documented by: [id number] Admin: 03/01/19 17:45 Dose: 999 mls/hr Documented by: [id number] Dextrose/Lactated Ringer's (D5w And Lactated Ringers) 1,000 mls @ 200 mls/hr IV .Q5H SHAE Stop: 03/02/19 12:25 Last Infusion: 03/02/19 13:24 Dose: 0 mls/hr Documented by: [id number] Admin: 03/02/19 08:22 Dose: 200 mls/hr Documented by: [id number] Infusion: 03/02/19 08:08 Dose: 200 mls/hr Documented by: [id number] Infusion: 03/02/19 06:46 Dose: 200 mls/hr Documented by: [id number] Admin: 03/02/19 03:08 Dose: 200 mls/hr Documented by: [id number] Infusion: 03/02/19 03:05 Dose: 200 mls/hr Documented by: [id number] Admin: 03/01/19 22:05 Dose: 200 mls/hr Documented by: [id number] Ketorolac Tromethamine (Toradol) 30 mg IV NOW STA Stop: 03/01/19 17:44 Last Admin: 03/01/19 18:01 Dose: 30 mg Documented by: [id number] Ondansetron HCl (Zofran) Confirm Administered Dose 4 mg .ROUTE .STK-MED ONE Stop: 03/01/19 17:31 Last Admin: 03/01/19 17:32 Dose: 4 mg Documented by: [id number] Ondansetron HCl (Zofran) 4 mg IV NOW STA Stop: 03/01/19 17:44 Last Admin: 03/01/19 19:52 Dose: 4 mg Documented by: [id number] Ondansetron HCl (Zofran) Confirm Administered Dose 4 mg .ROUTE .STK-MED ONE Stop: 03/01/19 19:48 Last Admin: 03/01/19 19:51 Dose: Not Given Documented by: [id number] Medical Decision Making Differential Diagnosis Differential diagnosis includes: appendicitis, diverticulitis, PUD, biliary pathology, UTI, pancreatitis, obstruction, mesenteric ischemia, aortic pathology, infections, inflammatory bowel disease, renal colic, as well as others were entertained. Medical Records Attestation: I reviewed the patient's medical records. Home Medications Current Medication List: was personally reviewed by me Laboratory Data Attestation: I reviewed the patient's lab results. Result diagrams: 03/01/19 16:23 03/03/19 05:53 Lab Results 03/01/19 03/01/19 03/01/19 Range/Units 16:23 16:23 16:23 WBC 5.90 (4.8-10.8) K/uL RBC 4.23 (4.2-5.4) M/uL Hgb 13.4 (12.0-16.0) g/dL Hct 38.0 (37-47) % MCV 89.8 (80-100) fL MCH 31.7 (25-34) pg MCHC 35.3 (32-36) g/dL RDW Std Deviation 44.1 (36.4-46.3) fL RDW Coeff of [place] 13.4 (11.5-14.5) % Plt Count 220 (130-400) K/uL MPV 9.8 (7.4-10.4) fL Immature Gran % (Auto) 0.2 % Neut % (Auto) 57.7 % Lymph % (Auto) 29.3 % [place] % (Auto) 10.3 % Eos % (Auto) 2.0 % Baso % (Auto) 0.5 % Immature Gran # (Auto) 0.01 (0.00-0.02) K/uL Neut # (Auto) 3.40 (1.4-6.5) K/uL Lymph # (Auto) 1.73 (1.2-3.4) K/uL [place] # (Auto) 0.61 H (0.11-0.59) K/uL Eos # (Auto) 0.12 (0-0.5) K/uL Baso # (Auto) 0.03 (0-0.2) K/uL PT (9.0-12.0) Seconds INR (0.9-1.1) APTT (21.0-31.0) Seconds PTT Ratio Sodium 139 (136-145) mmol/L Potassium 4.1 (3.5-5.1) mmol/L Chloride 108 H (98-107) mmol/L Carbon Dioxide 26 (21-32) mmol/L Anion Gap 5.0 (3-11) BUN 20 H (7-18) mg/dl Creatinine 1.15 (0.6-1.2) mg/dl Est Cr Clr Drug Dosing 72.7 ml/min Est GFR ( Amer) 76.6 Est GFR (Non-Af Amer) 66.1 BUN/Creatinine Ratio 17.0 (10-20) Glucose 107 H (70-99) mg/dl Calcium 9.0 (8.5-10.1) mg/dl Magnesium (1.8-2.4) mg/dl Total Bilirubin 0.7 (0.2-1) mg/dl AST 15 (15-37) U/L ALT 22 (12-78) U/L Alkaline Phosphatase 86 (45-117) U/L Total Protein 7.3 (6.4-8.2) gm/dl Albumin 3.7 (3.4-5.0) gm/dl Globulin 3.6 (2.5-4.0) gm/dl Albumin/Globulin Ratio 1.0 (0.9-2) Amylase 282 H (25-115) U/L Lipase 2322 H (73-393) U/L Urine Color Urine Appearance (Clear) Urine pH (4.5-7.5) Ur Specific [place] (1.000-1.030) Urine Protein (Negative) Urine Glucose (UA) (Negative) Urine Ketones (Negative) Urine Blood (Negative) Urine Nitrite (Negative) Urine Bilirubin (Negative) Urine Urobilinogen (Negative) Ur Leukocyte Esterase (Negative) Urine Test (Negative) 03/01/19 03/01/1903/01/19 Range/Units 16:23 16:23 16:23 WBC (4.8-10.8) K/uL RBC (4.2-5.4) M/uL Hgb (12.0-16.0) g/dL Hct (37-47) % MCV (80-100) fL MCH (25-34) pg MCHC (32-36) g/dL RDW Std Deviation (36.4-46.3) fL RDW Coeff of [place] (11.5-14.5) % Plt Count (130-400) K/uL MPV (7.4-10.4) fL Immature Gran % (Auto) % Neut % (Auto) % Lymph % (Auto) % [place] % (Auto) % Eos % (Auto) % Baso % (Auto) % Immature Gran # (Auto) (0.00-0.02) K/uL Neut # (Auto) (1.4-6.5) K/uL Lymph # (Auto) (1.2-3.4) K/uL [place] # (Auto) (0.11-0.59) K/uL Eos # (Auto) (0-0.5) K/uL Baso # (Auto) (0-0.2) K/uL PT 10.8 (9.0-12.0) Seconds INR 1.1 (0.9-1.1) APTT 27.3 (21.0-31.0) Seconds PTT Ratio 1.0 Sodium (136-145) mmol/L Potassium (3.5-5.1) mmol/L Chloride (98-107) mmol/L Carbon Dioxide (21-32) mmol/L Anion Gap (3-11) BUN (7-18) mg/dl Creatinine (0.6-1.2) mg/dl Est Cr Clr Drug Dosing ml/min Est GFR ( Amer) Est GFR (Non-Af Amer) BUN/Creatinine Ratio (10-20) Glucose (70-99) mg/dl Calcium (8.5-10.1) mg/dl Magnesium (1.8-2.4) mg/dl Total Bilirubin (0.2-1) mg/dl AST (15-37) U/L ALT (12-78) U/L Alkaline Phosphatase (45-117) U/L Total Protein (6.4-8.2) gm/dl Albumin (3.4-5.0) gm/dl Globulin (2.5-4.0) gm/dl Albumin/Globulin Ratio (0.9-2) Amylase (25-115) U/L Lipase (73-393) U/L Urine Color Yellow Urine Appearance Clear (Clear) Urine pH 5.5 (4.5-7.5) Ur Specific [place] 1.019 (1.000-1.030) Urine Protein Negative (Negative) Urine Glucose (UA) Negative (Negative) Urine Ketones Negative (Negative) Urine Blood Negative (Negative) Urine Nitrite Negative (Negative) Urine Bilirubin Negative (Negative) Urine Urobilinogen Negative (Negative) Ur Leukocyte Esterase Negative (Negative) Urine Test Negative (Negative) 03/02/19 03/02/19 03/03/19 Range/Units 05:53 05:53 05:53 WBC (4.8-10.8) K/uL RBC (4.2-5.4) M/uL Hgb (12.0-16.0) g/dL Hct (37-47) % MCV (80-100) fL MCH (25-34) pg MCHC (32-36) g/dL RDW Std Deviation (36.4-46.3) fL RDW Coeff of [place] (11.5-14.5) % Plt Count (130-400) K/uL MPV (7.4-10.4) fL Immature Gran % (Auto) % Neut % (Auto) % Lymph % (Auto) % [place] % (Auto) % Eos % (Auto) % Baso % (Auto) % Immature Gran # (Auto) (0.00-0.02) K/uL Neut # (Auto) (1.4-6.5) K/uL Lymph # (Auto) (1.2-3.4) K/uL [place] # (Auto) (0.11-0.59) K/uL Eos # (Auto) (0-0.5) K/uL Baso # (Auto) (0-0.2) K/uL PT (9.0-12.0) Seconds INR (0.9-1.1) APTT (21.0-31.0) Seconds PTT Ratio Sodium 141 141 (136-145) mmol/L Potassium 4.1 3.7 (3.5-5.1) mmol/L Chloride 110 H 110 H (98-107) mmol/L Carbon Dioxide 28 27 (21-32) mmol/L Anion Gap 4.0 5.0 (3-11) BUN 12 6 L D (7-18) mg/dl Creatinine 0.98 0.87 (0.6-1.2) mg/dl Est Cr Clr Drug Dosing 85.3 96.1 ml/min Est GFR ( Amer) 92.9 107.3 Est GFR (Non-Af Amer) 80.2 92.6 BUN/Creatinine Ratio 12.0 6.5 L (10-20) Glucose 105 H 105 H (70-99) mg/dl Calcium 8.2 L 8.7 (8.5-10.1) mg/dl Magnesium 1.9 (1.8-2.4) mg/dl Total Bilirubin 1.1 H D (0.2-1) mg/dl AST 14 L (15-37) U/L ALT 18 (12-78) U/L Alkaline Phosphatase 58 (45-117) U/L Total Protein 5.9 L (6.4-8.2) gm/dl Albumin 3.1 L (3.4-5.0) gm/dl Globulin 2.8 (2.5-4.0) gm/dl Albumin/Globulin Ratio 1.1 (0.9-2) Amylase (25-115) U/L Lipase 368 164 (73-393) U/L Urine Color Urine Appearance (Clear) Urine pH (4.5-7.5) Ur Specific [place] (1.000-1.030) Urine Protein (Negative) Urine Glucose (UA) (Negative) Urine Ketones (Negative) Urine Blood (Negative) Urine Nitrite (Negative) Urine Bilirubin (Negative) Urine Urobilinogen (Negative) Ur Leukocyte Esterase (Negative) Urine Test (Negative) Imaging Data Radiologist's Impression: Radiology results as stated below per my review and the radiologist's interpretation: US abdomen limited HISTORY: 23 years-old Female Pancreatitis acute right upper quadrant abdominal pain. History of prior cholecystectomy. COMPARISON: CT abdomen and pelvis 07/20/2018 TECHNIQUE: Multiple real-time sonographic images of the abdominal right upper quadrant were obtained assessing grayscale appearance and color flow FINDINGS: Prior cholecystectomy. The visualized pancreas is mildly heterogeneous. No pancreatic fluid collections. The previously described pancreatic head calc ifications are better seen on comparison CT. No pancreatic ductal dilation. Liver is unremarkable. No ascites or biliary ductal dilation identified. Common bile duct is normal, 5 mm. Imaged right kidney is unremarkable without hydronephrosis. IMPRESSION: 1. Nonspecific mildly heterogeneous appearance of the pancreas. Correlate with lipase level. 2. Prior cholecystectomy. 3. No biliary ductal dilation. The above report was generated using voice recognition software. It may contain grammatical, syntax or spelling errors. Electronically signed by: Giovanny Ac M.D. 03/01/2019 7:14 PM Blood Pressure Blood Pressure Findings: Elevated blood pressure Blood Pressure Disposition: further management by hospitalist MDM Narrative This is a 23-year-old female who has a history of pancreatitis along with stents in her abdomen. Based on this and using shared medical decision making with the patient decision was made to obtain an lipase and amylase. Her lipase was found to be grossly elevated at 2000. She was sent for an ultrasound of her pancreas which was concerning for pancreatitis. I will note that the patient is afebrile does not have an elevation in her white blood cell count. She was given normal saline bolus as well as Dilaudid here in the emergency department. I offered to send the patient home with pain medication however she would like to be admitted therefore I did discuss the case with the hospitalist service who agreed to admit the patient. Patient was in agreement with the treatment plan. Impression & Plan Pancreatitis Discharge Plan Visit Data *Final* Discharge Date/Time: 03/01/19 21:10 Chief Complaint: Abdominal Pain Stated Complaint: CHRONIC PANCREATITIS ED Provider: Berry Olivera Discharge Problem: Pancreatitis Patient Disposition: Admitted As Inpatient Discharge Instructions Interventions: ED Discharge Assessment Last Done: 03/01/19 21:10 Discharge Problem: Pancreatitis Qualifiers: Chronicity: chronic Pancreatitis type: unspecified pancreatitis type Qualified Code(s): K86.1 - Other chronic pancreatitis The scribe's documentation has been prepared under my direction and personally reviewed by me in its entirety. I confirm that the note above accurately reflects all work, treatment, procedures, and medical decision making performed by me.
[2019-03-03] MEDS: MELATONIN 3 MG PO SCH (22:09)
[2019-03-04] MEDS: HYDROmorphone INJ 0.5 MG/0.5 ML SYR IV PRN ×6 (03:35→21:52)
[2019-03-04] MEDS: ONDANSETRON INJ 2 MG/ML 2 ML VIAL IV PRN ×2 (03:35→17:30)
[2019-03-04] MEDS: D5W AND LACTATED RINGERS 1,000 ML IV SCH ×3 (05:17→21:17)
[2019-03-04 06:29] LABS: Albumin Level 3.1 gm/dl (3.4-5.0); Calcium 8.5 mg/dl (8.5-10.1); Creatinine Clr Calc Pharmacy 79.6 ml/min; Est GFR (African American) 85.5; Est GFR (Non-African American) 73.8; Potassium 3.4 mmol/L (3.5-5.1)
[2019-03-04 06:31] LABS: Globulin 3.2 gm/dl (2.5-4.0); Total Protein 6.3 gm/dl (6.4-8.2)
[2019-03-04] MEDS: PROCHLORPERAZINE 10 MG in SYRINGE 8 ML IV PRN ×2 (09:24→19:42)
[2019-03-04] MEDS: ENOXAPARIN INJ 40 MG/0.4 ML SYR SQ SCH (09:30)
--- NOTE | 2019-03-04 17:47 | Hospitalist Progress Note ---
Date of Service March 04, 2019 Assessment & Plan (1) Acute on chronic pancreatitis: - Has had longstanding issues with numerous admissions; no clear etiology for her chronic pancreatitis; [facility] (Dr[facility] Vee) - H/O [place] with sphincterotomy/stent - Lipase 2300 on admission but has remained in normal range since - Reduce IVF further to 80 mL/hr and possibly D/C them tomorrow - Continues to have postprandial pain but improving and feels she can do solid foods and will trial with dinner; intolerance to Creon due to severe constipation - Possibly trial bile-acid sequestrants? will discuss with patient if this has been trialed given that she also has diarrhea which maybe is causing some of her discomfort? - Tylenol and Dilaudid PRN - GI following - appreciate input Present on Admission?: Yes (2) Elevated BUN: - BUN was elevated on admission, likely related to dehydration in setting of poor PO intake. - Improved with IV fluids. Present on Admission?: Yes (3) DVT prophylaxis: - SCDs; encourage ambulation. Lovenox Dispo: Await improvement with abdominal pain/diet tolerance Subjective Pt reports feeling a bit better today. Largely asymptomatic when not eating but experiencing postprandial discomfort - is intolerant to Creon due to severe constipation Did have some nausea after breakfast but states lunch did better and would like to try some solid food and will advance and monitor; She is having diarrhea - maybe a bile acid sequestrant may help? Lipase has remained normal for past few days; states her normal flairs can take 5-10 days to fully resolve; Also states this seems to flair with increased stress Review of Systems Constitutional: no fever and no chills Eyes: no worsening vision Ear, Nose, Mouth, Throat: no nasal congestion, no sore throat and no dysphagia Respiratory: no cough and no dyspnea Cardiovascular: no chest pain and no palpitations Gastrointestinal: + abdominal pain, + nausea (after breakfast) and + diarrhea/loose stools; no vomiting and no constipation Genitourinary: no dysuria Integumentary: no rash Physical Exam Constitutional: well developed and well nourished; no acute distress and not ill appearing Eyes: + anicteric sclerae ENMT: Ears: no hearing impairment Neck: normal visual inspection and trachea midline Respiratory: normal respiratory effort, lungs clear to auscultation Cardiovascular: RRR, no murmur, no edema Gastrointestinal (Abdomen): Inspection/Auscultation: normal bowel sounds Percussion/Palpation: + abdomen tender (epigastric region) and abdomen soft; no guarding and abdomen not rigid Musculoskeletal: Head/Neck/Chest: normocephalic, head atraumatic and neck supple Skin: no rashes, warm and dry Neurologic: moves all extremities Psychiatric: A+Ox3, euthymic affect Results & Data Vital Signs (Past 12 Hours) Vital Signs Temp Pulse Resp BP Pulse Ox 03/04/19 15:40 36.8 C 61 18 118/81 98 03/04/19 07:29 36.9 C 62 16 98/60 L 98
[2019-03-04] MEDS: MELATONIN 3 MG PO SCH (21:15)
--- OUTSIDE RECORDS SUMMARY | 2019-03-04 22:29 | External Medical Summary | Continuity of Care Document ---
:1995 Author Name Griffin Rubio, Provider Address Unavailable Unavailable , Care Team Providers Name Role Phone Unavailable Unavailable Unavailable PCP, UNKNOWN Unavailable Unavailable Problems Active medical history not documented Allergies and Adverse Reactions Allergy history not documented Medications Medications not documented Procedures Procedures not documented Immunizations Immunizations not documented Plan of Treatment Planned Observations Planned Goals not documented Results No Known Results Results not documented
[2019-03-05] MEDS: HYDROmorphone INJ 0.5 MG/0.5 ML SYR IV PRN ×2 (02:34→08:53)
[2019-03-05] MEDS: D5W AND LACTATED RINGERS 1,000 ML IV SCH (05:12)
[2019-03-05] MEDS: ENOXAPARIN INJ 40 MG/0.4 ML SYR SQ SCH (08:53)
[2019-03-05] MEDS ORDERED: OXYCODONE/ACETAMINOPHEN 5mg/325mg TAB PO PRN (10:36)
[2019-03-05] MEDS ORDERED: DOCUSATE SODIUM 100 MG CAP PO SCH (10:45)
--- NOTE | 2019-03-05 18:59 | Discharge Summary ---
Date of Service March 05, 2019 Admission HPI Per Admitting Provider 23 yo student at [employer], originally from [place], who follows with Dr. Vee from [facility], was admitted for abdominal pain. Workup showed elevated lipase and she was diagnosed with pancreatitis. She has been on IV LR overnight with improvement in her pain- however when she ate yesterday, her pain worsened slightly. This morning her pain is 3/10. She denies nausea/vomiting. She reports no one has ever figured out what her pancreatitis is from- she has had a prior cholecystectomy empirically about 4 years ago she states through the [facility] system and she thinks a biliary/pancreatic sphincterotomy. She has had IgG4 levels checked, on no medications that could pancreatitis that she is aware of, no family history, no family history of autoimmune problems, no herbal supplements. She is overall feeling better than when she came in. Principal Diagnosis Acute on Chronic Pancreatitis Discharge Exam Constitutional well developed and well nourished; no acute distress and not ill appearing Eyes + anicteric sclerae ENMT Ears: no hearing impairment Neck normal visual inspection and trachea midline Respiratory normal respiratory effort, lungs clear to auscultation Cardiovascular RRR, no murmur, no edema Gastrointestinal (Abdomen) Inspection/Auscultation: normal bowel sounds Percussion/Palpation: + abdomen tender (epigastric region) and abdomen soft; no guarding and abdomen not rigid Musculoskeletal Head/Neck/Chest: normocephalic, head atraumatic and neck supple Skin no rashes, warm and dry Neurologic moves all extremities Psychiatric A+Ox3, euthymic affect Discharge Data Allergies Allergy/AdvReac Type Severity Reaction Status Date / Time Penicillins Allergy Intermediate HIVES Verified 03/01/19 21:29 Sulfa (Sulfonamide Allergy Intermediate HIVES Verified 03/01/19 17:51 Antibiotics) cephalexin Allergy Unknown UNKNOWN Verified 03/01/19 17:51 moxifloxacin Allergy Unknown adverse Unverified 03/01/19 17:51 reaction morphine AdvReac Intermediate INCREASED Verified 03/01/19 17:51 PAIN all antibiotics AdvReac Unknown Unknown Uncoded 03/01/19 17:51 Consultations 03/01/19 20:08 ED Decision to Admit Stat 03/02/19 10:32 Consult Gastroenterology Routine Ordered Studies US abdomen limited FINDINGS: Prior cholecystectomy. The visualized pancreas is mildly heterogeneous. No pancreatic fluid collections. The previously described pancreatic head calcifications are better seen on comparison CT. No pancreatic ductal dilation. Liver is unremarkable. No ascites or biliary ductal dilation identified. Common bile duct is normal, 5 mm. Imaged right kidney is unremarkable without hydronephrosis. IMPRESSION: 1. Nonspecific mildly heterogeneous appearance of the pancreas. Correlate with lipase level. 2. Prior cholecystectomy. 3. No biliary ductal dilation. Hospital Course (1) Acute on chronic pancreatitis: - Has had longstanding issues with numerous admissions; no clear etiology for her chronic pancreatitis; Follows with GI at [facility] (Dr. Vee) - H/O Celeste with sphincterotomy/stent - Lipase 2300 on admission but has remained in normal range during remainder of stay; treated with aggressive IV hydration - Continues to have postprandial pain that is mild but is tolerating a low fat diet - she is intolerant to Creon due to severe constipation but ultimately may be the treatment she needs -- States she utilized bile-acid sequestrants after her celeste but hasn't since...not likely this is strictly biliary issues - Maybe a component of reflux as she does describe this as more of a burning sensation - will give Rx for Ranitidine which she says she has trialed before with minimal change in symptoms - maybe needs EGD? - Rx provided for anti-emetics and Oxycodone/Acetaminophen x 3 days - no issues in PDMP (2) Elevated BUN: - BUN was elevated on admission, likely related to dehydration in setting of poor PO intake. - Improved with IV fluids. Total Time Total Time Spent Total Time Spent (In Minutes): Greater than 30 minutes Discharge Plan Discharge Items Patient Disposition: Home - Self-Care Reason For Visit: PANCREATITIS Discharge Diagnosis: Acute on Chronic Pancreatitis Discharge Goals: Decrease discomfort, Improve disease control and Prevent disease Activity: Resume your previous activity Non-emergency contact: Primary Care Provider Call non-emergency contact if: you have any medication questions, your symptoms worsen and your pain is not controlled Follow-up/Referrals: MARIANNE HOFFMANN M.D. [Primary Care Provider] - Diet: Low Fat Addtl Provider Instructions: Acute on Chronic Pancreatitis: - When you were first admitted your lipase was 2300 but every day since it has been in a normal range. - Would recommend close follow-up with your GI doctor in [place] for further evaluation and input - Hopefully a solution could be found for why you have the pain after eating and find an approach that can keep this from another exacerbation - Recommend to continue to eat a low fat diet which can help ease the work of the pancreas to digest some foods. - Will give a prescription for some medication to help with nausea and pain. Recommend to only use these when necessary and to not drive when taking pain medication. - Will also give a prescription for Colace with is a stool softener. You can even buy this over the counter. It is safe to take 100 mg twice a day. - Will give a prescription for Ranitidine. This is a heartburn medication which may help some with that burning sensation. Give it a try over the next couple days. If it doesn't seem to help you can stop taking this. - If your symptoms worsen please return to the ER to be evaluated. Prescriptions: New oxycodone-acetaminophen [Percocet] 5-325 mg Tablet 1 tab PO Q4H PRN (Reason: pain) 3 Days Qty: 18 RF: 0 ranitidine HCl 150 mg Tablet 150 mg PO BID 14 Days Qty: 28 RF: 0 docusate sodium 100 mg Capsule 100 mg PO BID 7 Days Qty: 14 RF: 0 ondansetron 4 mg tablet,disintegrating 4 mg PO Q6H PRN (Reason: nausea and vomiting) 3 Days Qty: 12 RF: 0 Continued Juliana 14 mcg/24 hour (3 years) Intrauterine Device 1 device intrauterine UD RF: 0 ibuprofen 200 mg Tablet 200 mg PO Q6H PRN (Reason: Pain) RF: 0 Stand-Alone Forms: [facility], [facility] Pain [facility], Work/School Release (Inpt) Discharge Orders: Discharge Order (Routine); Ordered 03/05/19 Ordered By: Lena Sanchez Admission Data Admit Date/Time: 03/01/19 20:21 Attending Provider: Derek Tsang Admit Provider: Sidney Sibley Primary Care Provider: MARIANNE HOFFMANN Other Providers: Sidney Sibley ; Alena Matos Service: Medical Other Interventions: Discharge Summary Assessment (RN) Last Done: 03/05/19 15:02 Pending Studies at Discharge: No DC Date/Time DO NOT enter until pt leaves facility: 03/05/19 17:07
== END 2019-03-05 17:07 | disposition home or self-care (01) | DRG 440 ==
LOC: ED 16:06 → 3N 20:21 → SUATTDRO 20:21 → 3N 21:10